=== PATIENT | female | born 1970 | race Caucasian/White ===

== ENCOUNTER 2018-03-16 07:16 | Inpatient (IN) ==
[2018-03-16] MEDS ORDERED: IOPAMIDOL 100 ML BOTTLE IV ONE (07:17)
--- NOTE | 2018-03-16 08:05 | Emergency Department Note ---
Abdominal Pain HPI - General Chief Complaint: Abdominal Pain Stated Complaint: "Pancreatitis Flare-Up" Time Seen by Provider: 03/16/18 07:53 Source: patient Mode of arrival: ambulatory Limitations: no limitations - History of Present Illness HPI Narrative: Patient states she has a history of pancreatitis, was hospitalized this year in September twice. Panotitis most likely alcohol-related. She was trying to stay off of alcohol but then had a few drinks on . Since then her pancreatitis pain has flared up. She reports mid epigastric abdominal pain radiating to her entire abdomen and also to her back since . Gradually worsening. Constantly pain. She does have a G-tube in place and she states she used some ensure just night before and this worsened her pain. She's not had anything to eat in the last 24 hours but has been trying to stay hydrated with some water. She feels she is thirsty. Does report urination this morning. Drove herself to the emergency department. No fevers or chills, she does have a cough, smoker, no history of a trauma no fevers, denies urinary symptoms, no flank pain. MD Complaint: abdominal pain - Related Data Home Medications Medication Instructions Recorded Confirmed Prozac 03/16/18 Allergies Allergy/AdvReac Type Severity Reaction Status Date / Time morphine Allergy Mild Itching Verified 03/16/18 07:18 Review of Systems All systems ED: reviewed and negative except as stated. ENT ED: Denies: throat pain, hearing loss Cardiovascular: Denies: chest pain, syncope Respiratory: Reports: cough, phlegm. Denies: shortness of breath Gastrointestinal: Reports: abdominal pain Genitourinary: Denies: dysuria Musculoskeletal: Reports: back pain Neurological: Denies: headache Abdominal Pain PMH - Past Medical History Medical history: Reports: asthma, COPD, other Reports: pancreatitis, peptic ulcer disease Surgical history ED: Reports: other (G-tube placement) Psychiatric history: Reports: anxiety - Social History Smoking status: Current every day smoker Alcohol use: Reports: Rarely, Recent Drug use: Reports: none Physical Exam Limitations: no limitations General appearance: alert, in distress Head: atraumatic Eye: Present: normal appearance, PERRL, EOMI, visual kumar intact. Absent: periorbital tenderness ENT: normal exam, normal oropharynx, TM's normal bilaterally, other (edentulous upper and lower) Neck: Present: normal inspection, full ROM, trachea midline Chest: Present: normal inspection, symmetric chest wall rise Respiratory: Present: other (the Minipress sounds bilaterally.). Absent: wheezes Cardiovascular: Present: regular rate, normal rhythm Abdominal: Present: tenderness, guarding, rebound, hypoactive bowel sounds Abdominal tenderness: Present: epigastrium, moderate Rectal: Present: deferred Extremities: Present: normal inspection, full ROM Back: Present: normal inspection. Absent: CVA tenderness (R), CVA tenderness (L ) Neurological: Present: alert, oriented X3, CN II-XII intact, normal gait, other (generally weak and frail appearing). Absent: motor sensory deficit Psychiatric: Present: normal affect Skin: Present: warm, dry, intact, rash, other (seborrhea of the face) Course Vital Signs Temperature 97.5 F 03/16/18 07:18 Pulse Rate 94 H 03/16/18 07:18 Respiratory Rate 28 H 03/16/18 07:18 Blood Pressure 123/71 03/16/18 07:18 Pulse Oximetry (%) 97 03/16/18 07:18 Temperature 97.5 F 03/16/18 07:18 Pulse Rate 80 03/16/18 08:33 Respiratory Rate 28 H 03/16/18 07:18 Blood Pressure 142/94 03/16/18 08:33 Pulse Oximetry (%) 100 03/16/18 08:33 Abdominal Pain - MDM Narrative Medical decision making narrative: Laboratory studies still pending at this time. CBC so far looks normal her lipase and chemistry panel still pending. Signed out to Dr. musa for further care. - Lab Data Result diagrams: 03/16/18 08:20 03/16/18 08:20 Lab Results 03/16/18 03/16/18 Range/Units 08:20 08:20 WBC 7.4 (4.5-11.0) K/mcL RBC 3.84 L (4.00-5.20) M/mcL Hgb 12.4 (12.0-15.0) g/dL Hct 37.2 (36.0-48.0) % MCV 96.9 (80.0-100.0) fL MCH 32.2 (26.0-34.0) pg MCHC 33.2 (31.0-36.0) g/dL RDW 16.2 H (11.5-14.5) % Plt Count 790 H (140-440) K/mcL MPV 8.2 (7.4-10.4) fL Gran % 72.2 (38.0-78.0) % Lymph % (Auto) 18.4 (15.5-49.0) % [facility] % (Auto) 5.8 (1.0-12.0) % Eos % (Auto) 3.1 (0.0-7.0) % Baso % (Auto) 0.5 (0.0-2.0) % Gran # 5.4 (1.8-8.0) K/mcL Lymph # (Auto) 1.4 L (1.5-4.8) K/mcL [facility] # (Auto) 0.4 (0.1-0.9) K/mcL Eos # (Auto) 0.2 (0.0-0.7) K/mcL Baso # (Auto) 0 (0.0-0.3) K/mcL PT 13.2 (11.9-14.5) sec INR 1.0 (0.9-1.1) Disposition Pt seen by MECHANICAL CAD DRAFTER/PA only: No Clinical Impression: Pancreatitis Disposition: Still a Patient Referrals: Jenn Smith ARNP [Primary Care Provider] -
[2018-03-16] MEDS ORDERED: PANTOPRAZOLE 40 MG VIAL IV ONE (08:10)
[2018-03-16] MEDS ORDERED: ONDANSETRON 4 MG/2 ML VIAL IV ONE ×2 (08:10→15:29)
[2018-03-16] MEDS ORDERED: LACTATED RINGERS 1,000 ML IV ONE ×2 (08:10)
[2018-03-16] MEDS ORDERED: HYDROmorphone 2 MG/ML VIAL IV ONE (08:20)
[2018-03-16] MEDS ORDERED: HYDROmorphone 2 MG/ML VIAL IV SCH (08:30)
[2018-03-16 08:49] LABS: Basophils # (Auto) 0 K/mcL (0.0-0.3); Basophils % (Auto) 0.5 % (0.0-2.0); Eosinophils # (Auto) 0.2 K/mcL (0.0-0.7); Eosinophils % (Auto) 3.1 % (0.0-7.0); Granulocytes % (Auto) 72.2 % (38.0-78.0); Lymphocytes # (Auto) 1.4 K/mcL (1.5-4.8); Lymphocytes % (Auto) 18.4 % (15.5-49.0); Mean Cell Volume 96.9 fL (80.0-100.0); Mean Corpuscular HGB Conc 33.2 g/dL (31.0-36.0); Mean Corpuscular Hemoglobin 32.2 pg (26.0-34.0); Monocytes # (Auto) 0.4 K/mcL (0.1-0.9); Monocytes % (Auto) 5.8 % (1.0-12.0); Platelet Count 790 K/mcL (140-440); RBC 3.84 M/mcL (4.00-5.20); Red Cell Distribution Width 16.2 % (11.5-14.5)
[2018-03-16 09:02] LABS: Lipase 117 U/L (7-60)
[2018-03-16 09:09] LABS: ALT/SGPT 7 U/l (0-40); Albumin 2.7 gm/dL (3.2-5.2); Albumin/Globulin Ratio 0.6 (1.0-2.3); Alkaline Phosphatase 155 U/L (39-117); Blood Urea Nitrogen 6 mg/dl (6-20); Lipase 117 U/L (7-60)
[2018-03-16] MEDS: HYDROmorphone 2 MG/ML VIAL IV PRN ×4 (09:30→21:03)
[2018-03-16 10:13] LABS: Appearance,Urine HAZY; Bacteria,Urine 0 /hpf (0); Bilirubin,Urine NEG (NEG); Color,Urine YELLOW; Glucose,Urine (UA) NEGATIVE (NEG); Leukocyte Esterase,Urine NEG /uL (NEG); Mucus,Urine MANY /hpf (0); Protein,Urine 30 mg/dL (NEG); Specific Gravity,Urine 1.024 (1.000-1.035); Urine Amorphous Crystals FEW /hpf (0); Urine Blood NEG mg/dL (<0.03); Urine Hyaline Cast 1 /lpf (0-2); Urine RBC 4 /hpf (0-1); Urine Squamous Epithelial Cell 5 /hpf (0-4); Urine WBC 3 /hpf (0-4)
--- NOTE | 2018-03-16 12:31 | XRay Report ---
CLINICAL INFORMATION: cough/copd COMPARISON: None. FINDINGS: The heart is grossly normal. Mediastinum and pulmonary vessels are unremarkable. Large left pleural effusion results in subtotal compressive atelectasis of the left lower lobe and lingula. The remaining lungs are clear. Moderate dextroscoliosis noted. IMPRESSION: Large left pleural effusion resulting in subtotal compressive atelectasis of the left lower lobe and lingula. Interpreted and Authenticated by: Ernesto Gomes 03/16/18
--- NOTE | 2018-03-16 13:25 | Cat Scan Report ---
CLINICAL INFORMATION: Left pleural effusion and history of pancreatitis COMPARISON: None. TECHNIQUE: Enteric contrast was utilized. 80 cc of Isovue-300 were injected intravenously, and 50 seconds later 2.5 mm helical slices were obtained from the lung apices through the subtrochanteric regions of the femurs. Following reconstruction, 2.5 mm sagittal, coronal and axial reformatted images were processed and reviewed at multiple windows and levels. 7 mm MIP reconstructions were obtained through the lungs to optimize nodule detection.The exam was performed using radiation dose optimization techniques including, but not limited to, automated exposure control, adjustment of the mA and/or kV according to patient size and use of iterative reconstruction technique. FINDINGS: Pulmonary parenchymal windows show large simple left pleural effusion resulting in subtotal compressive atelectasis of the left lower lobe and lingula. There is a small region of groundglass infiltrate in the anterior segment of the right upper lobe with minimal scattered scarring and/or atelectasis in the periphery of both lungs. Mediastinal windows show the thoracic aorta and pulmonary arteries to be well opacified and normal in contour and caliber. The heart is normal in size and configuration with very minimal atherosclerotic plaque in the coronary arteries. Esophagus is normal. There is no adenopathy in the mediastinal hilar or axillary regions. The thyroid is unremarkable. Images through the abdomen show mild hepatomegaly with inhomogeneous attenuation of the liver suggesting diffuse hepatocellular disease such as inflammation. There is a 11 mm hyperenhancing lesion in the medial segment of the left hepatic lobe adjacent to the ligament ligamentum fissure (image 1:30). The remaining liver is normal. The gallbladder is surgically absent. Intrahepatic and common bile ducts are normal caliber - CBD is 6 mm. There are scattered calcifications throughout the pancreatic parenchyma compatible chronic pancreatitis. The pancreatic parenchyma also shows mild inhomogeneous attenuation suggesting acute upon chronic pancreatitis. The Santorini pancreatic duct is dilated measuring in the mid body up to 4 mm. There are multiple pseudocysts in the distal pancreatic body, tail and perisplenic regions. The largest is 7 cm in maximal dimension within the pancreatic tail. This also 4 cm pseudocyst in the subdiaphragmatic region and a 7 x 2.6 cm sausage-shaped pseudocyst the anterior perisplenic region. A 3.2 cm pseudocyst is noted in the subcapsular region of the spleen. Both kidneys, adrenal glands, spleen and aorta, including aortic branches, are normal in size, configuration and attenuation without focal lesion. Images through the pelvis retroverted uterus which is normal in size: 7.5 x 2.5 cm. A 3 cm fat-containing dermoid cyst is seen in the left ovarian region. It is predominantly fatty density with a 2 cm solid component centrally. Right ovary is not identified. Small amount of ascites is noted. PEG tube is seen in satisfactory position entering the anterior wall of the gastric body with the tube extending intraluminally into the distal stomach and proximal duodenum - tip is in the transverse duodenum. The stomach, small bowel and large bowel are normal otherwise, normal. Bone windows show malunified old distal right clavicle fracture and posterior fusion of the right sixth and seventh rib at the costotransverse junction] Mild dextroscoliosis is noted. IMPRESSION: 1. Large simple left pleural effusion resulting in subtotal atelectasis of the left lower lobe and lingula. 2. Acute upon chronic pancreatitis. There are multiple calcifications scattered throughout the pancreatic parenchyma compatible with chronic pancreatitis. In addition, there is mild inflammation in pancreatic parenchyma and multiple pseudocysts ranging up to 7 cm in the pancreatic tail. Santorini pancreatic duct is moderately dilated in the distal body and tail and demonstrate communication the largest pseudocyst. 3. 3 cm fat-containing dermoid cyst in the left ovarian region. 2 cm solid component. 4. Mildly enlarged inhomogeneous liver suggesting inflammation or other diffuse cellular process. There is an 11 mm hyperattenuating lesion in the medial segment of the left hepatic lobe. This could potentially represent a transient attenuation difference,, however the possibility of hepatoma should be excluded. Suggest abdominal MRI and MRCP, to evaluate for hepatoma in the left hepatic lobe, exclude the possibility of thrombus in the splenic vein and ensure overall the pseudocysts have a benign appearance. Interpreted and Authenticated by: Ernesto Gomes 03/16/18
[2018-03-16] MEDS ORDERED: HYDROmorphone 2 MG/ML VIAL IV PRN (14:52)
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
[2018-03-16] MEDS ORDERED: PROMETHAZINE 25 MG/ML VIAL IM PRN (17:29)
[2018-03-16] MEDS ORDERED: ACETAMINOPHEN 325 MG TABLET PO PRN (17:29)
[2018-03-16] MEDS ORDERED: PROCHLORPERAZINE 25 MG SUPP.RECT PR PRN (17:29)
[2018-03-16] MEDS ORDERED: ONDANSETRON 4 MG/2 ML VIAL IV PRN (17:29)
[2018-03-16] MEDS ORDERED: IPRATROPIUM/ALBUTEROL 3 ML AMPUL.NEB NEB PRN (17:29)
[2018-03-16] MEDS: 0.9 % SODIUM CHLORIDE 1,000 ML IV SCH ×2 (18:00→23:49)
[2018-03-16] MEDS ORDERED: HYDROmorphone 2 MG/ML VIAL ONE (18:10)
[2018-03-16] MEDS: NICOTINE 21 MG PATCH TOPICAL SCH (19:05)
[2018-03-16] MEDS: HEPARIN 5,000 UNIT/ML VIAL SQ SCH (21:03)
[2018-03-16] MEDS: DOCUSATE SODIUM 100 MG CAPSULE PO SCH (21:03)
[2018-03-16] MEDS: 0.9 % SODIUM CHLORIDE 10 ML SYRINGE IV SCH (21:04)
[2018-03-16] MEDS: FAMOTIDINE/PF 20 MG/2 ML VIAL IV SCH (21:04)
[2018-03-17] MEDS: HYDROmorphone 2 MG/ML VIAL IV PRN ×8 (01:13→22:26)
[2018-03-17] MEDS: 0.9 % SODIUM CHLORIDE 10 ML SYRINGE IV SCH ×3 (04:55→22:27)
[2018-03-17 05:38] LABS: Basophils # (Auto) 0 K/mcL (0.0-0.3); Basophils % (Auto) 0.9 % (0.0-2.0); Eosinophils # (Auto) 0.3 K/mcL (0.0-0.7); Eosinophils % (Auto) 5.3 % (0.0-7.0); Lymphocytes # (Auto) 2.1 K/mcL (1.5-4.8); Mean Cell Volume 97.5 fL (80.0-100.0); Mean Corpuscular HGB Conc 32.6 g/dL (31.0-36.0); Mean Corpuscular Hemoglobin 31.8 pg (26.0-34.0); Monocytes # (Auto) 0.4 K/mcL (0.1-0.9); Monocytes % (Auto) 7.8 % (1.0-12.0); Platelet Count 630 K/mcL (140-440); Red Cell Distribution Width 16.5 % (11.5-14.5)
[2018-03-17 05:58] LABS: ALT/SGPT 7 U/l (0-40); Albumin 2.2 gm/dL (3.2-5.2); Albumin/Globulin Ratio 0.7 (1.0-2.3); Alkaline Phosphatase 117 U/L (39-117); Bilirubin,Direct < 0.2 mg/dL (0.0-0.3); Blood Urea Nitrogen 4 mg/dl (6-20); Gamma Glutamyl Transpeptidase 64 U/L (5-36); Uric Acid 2.7 mg/dL (2.5-8.0)
[2018-03-17] MEDS: 0.9 % SODIUM CHLORIDE 1,000 ML IV SCH ×4 (06:51→23:08)
--- NOTE | 2018-03-17 06:56 | Internal Med Progress Note ---
Medical - PN: Subj Patient information: Note initiated : 03/17/18 at 6:53 am Service Date, if different from initiated Date: [] Patient: Jaleesa Harrison a 47 y/o F admitted on 03/16/18 for "Pancreatitis Flare- Up". Chief Complaint: [] Interval history: Ms. Harrison is a 47 year old F with history of alcohol abuse and chronic pancreatitis who presents with increased abdominal pain with her typical pancreatic pain since consuming alcohol recently. Patient has been abstinent from alcohol since August she states however in February she had some alcohol at friend's house a week or so before and then she had some more on . She says that her abdominal pain has been worsening, she does have baseline abdominal pancreatic pain, since taking the alcohol earlier in the month. She was seen at [place] several times the past several weeks. But returns for continued pain. She is originally from [place] she is been over here since last fall but has been back and forth several times. She has had multiple episodes of pancreatitis in the past. Sounds like in 2013 she had multiorgan dysfunction from a severe pancreatitis. She was seen [facility] in May 2017 for pancreatitis and was seen at a hospital in [place] in October for pancreatitis at which time she had a J-tube placed and was found to have a pseudocyst at that time. The pseudocyst were not present on imaging in May [facility]. Current imaging shows a large pleural effusion on the left with subtotal atelectasis of the left lower lobe acute on chronic pancreatitis changes she has multiple pseudocysts including several 7 cm pseudocysts, a 4 cm pseudocyst, and a 3 cm pseudocyst. An enlarged liver noted and 11 mm lesion in the left hepatic lobe which per the radiological read could represent a transient attenuation difference however consideration for hepatoma considered. Because of the patient's complicated pancreatic history, her J-tube, multiple large pseudocysts, large pleural effusion, liver lesion, and no car rental manager available for consult at this facility I initially felt uncomfortable admitting this patient to [facility] given our limited resources and initially refused admission to this facility. However, ER physician stated the car rental manager and hospitalist in [place] did not feel the patient needed to be transferred and could be treated down here. Prior to that the case was discussed with [facility] center who recommended transferring to [place]. Patient does admit to recent alcohol use which I aggressively counseled her against. Patient is also still smoking. She has some nausea but no vomiting. She has chronic diarrhea. She feels her breathing is not compromised. No chest pain. Stomach pain is severe sharp shooting radiating which she states around to the back. 03/17 Poor sleep last night because of what she says noise interruptions and pain. Abdominal pain better controlled with pain medications. She states she is starving and would like a diet. Has some nausea no vomiting. Review of Systems: denies headache/fever/chills/chest pain/cough/dyspnea/diarrhea. Otherwise see above. - Constitutional Vitals: Vital Signs Temp Pulse Resp BP Pulse Ox 98.3 F 58 L 18 140/84 94 03/17/18 02:50 03/17/18 02:50 03/17/18 02:50 03/17/18 02:50 03/17/18 02:50 Period Temp Pulse Resp BP Sys/Castaneda Pulse Ox Last 24 Hr 97.5 F-98.4 F 57-94 12-28 107-150/61-100 92-100 Intake and Output 03/16/18 03/17/18 03/17/18 21:59 05:59 13:59 Intake Total 1053 / 1053 1000 / 1000 Output Total 450 / 450 350 / 350 Balance 603 / 603 650 / 650 Weight 49.396 kg Intake & Output: Intake & Output 03/16/18 03/17/18 03/17/18 21:59 05:59 13:59 Intake Total 1053 / 1053 1000 / 1000 Output Total 450 / 450 350 / 350 Balance 603 / 603 650 / 650 Weight 49.396 kg Intake: IV 873 / 873 1000 / 1000 Sodium Chloride 0.9% 1,000 ml @ 873 / 873 1000 / 1000 150 mls/hr IV .Q6H40M [facility] Rx#: [id number] Oral 180 / 180 Output: Void Amount 450 / 450 350 / 350 Other: Urine Appearance Clear Clear Urine Color Dark Yellow Bright Yellow Urine Odor Normal # Voids 1 Exam: General: Alert, Awake, No acute Distress Eyes/N/T: EOMI, Head/Neck: neck supple, CV: RRR, No murmurs, normal s1/s2 Pulm: Clear b/l, no wheezing/rhonchi/rales Abd: soft, tenderness to palpation epigastrium, +BS x4 Ext: no clubbing/cyanosis/edema Neuro: Alert, no focal deficits, moves all extremities Skin: warm/dry Medical - PN: Obj Da - Labs CBC & Chem 7: 03/17/18 04:31 03/17/18 04:31 Labs: Abnormal Lab Results 03/17/18 03/17/18 03/16/18 04:31 04:31 16:01 RBC 3.20 L Hgb 10.2 L Hct 31.2 L RDW 16.5 H Plt Count 630 H Lymph # (Auto) BUN 4 L Creatinine 0.3 L Calcium 8.3 L GGT 64 H Alkaline Phosphatase Lactate Dehydrogenase < 10 L Total Protein 5.5 L Albumin 2.2 L Globulin Albumin/Globulin Ratio 0.7 L Lipase Urine Protein Urine Urobilinogen Urine RBC Ur Squamous Epith Cells Amorphous Crystals Urine Mucus 03/16/18 03/16/18 03/16/18 09:20 08:20 08:20 RBC Hgb Hct RDW Plt Count Lymph # (Auto) BUN Creatinine 0.4 L Calcium GGT Alkaline Phosphatase 155 H Lactate Dehydrogenase Total Protein Albumin 2.7 L Globulin 4.3 H Albumin/Globulin Ratio 0.6 L Lipase 117 H 117 H Urine Protein 30 A Urine Urobilinogen 2.0 A Urine RBC 4 H Ur Squamous Epith Cells 5 H Amorphous Crystals Few A Urine Mucus Many A 03/16/18 08:20 RBC 3.84 L Hgb Hct RDW 16.2 H Plt Count 790 H Lymph # (Auto) 1.4 L BUN Creatinine Calcium GGT Alkaline Phosphatase Lactate Dehydrogenase Total Protein Albumin Globulin Albumin/Globulin Ratio Lipase Urine Protein Urine Urobilinogen Urine RBC Ur Squamous Epith Cells Amorphous Crystals Urine Mucus Meds: Medications Acetaminophen (Tylenol) 650 mg PO Q6HP PRN PRN Reason: PAIN/FEVER > 101 Albuterol/Ipratropium (Duoneb) 3 ml NEB Q4HRT PRN PRN Reason: Bronchospasm Docusate Sodium (Colace) 100 mg PO BID [facility] Last Admin: 03/16/18 21:03 Dose: Not Given Famotidine (Pepcid) 20 mg IV Q12 [facility] Last Admin: 03/16/18 21:04 Dose: 20 mg Heparin Sodium (Porcine) (Heparin) 5,000 unit SQ Q12 [facility] Last Admin: 03/16/18 21:03 Dose: 5,000 unit Hydromorphone HCl (Dilaudid) 0 mg IV Q2HP PRN PRN Reason: PAIN LEVEL > 6 Last Admin: 03/17/18 04:54 Dose: 1 mg Sodium Chloride (Sodium Chloride 0.9%) 1,000 mls @ 150 mls/hr IV .Q6H40M [facility] Last Admin: 03/17/18 06:51 Dose: 150 mls/hr Nicotine (Nicoderm) 21 mg TOPICAL DAILY@1000 IVANIA Last Admin: 03/16/18 19:05 Dose: 21 mg Ondansetron HCl (Zofran) 4 mg IV Q4HP PRN PRN Reason: Nausea And Vomiting Prochlorperazine Maleate (Compazine) 12.5 mg MN Q12HP PRN PRN Reason: Nausea And Vomiting Promethazine HCl (Phenergan) 12.5 mg IM Q6HP PRN PRN Reason: Nausea And Vomiting Sodium Chloride (Saline Flush) 10 ml IV Q8 [facility] Last Admin: 03/17/18 04:55 Dose: Not Given Medical - PN: A/P - Time Spent With Patient Total time spent is greater than 50% in coordination of care (as documented) at patient's floor/unit and/or counseling patient: - Narrative A/P Narrative: A: *Acute on chronic pancreatitis: Secondary to alcohol use *Multiple large pseudocysts: Secondary to chronic pancreatitis -Were not present in May, but were present on her admission in October surgery. Unknown size of the pseudocysts in October *Large left pleural effusion: Suspect pancreatic etiology - *Alcohol abuse: *Tobacco abuse: *Depression: *Cirrhosis, alcohol induced: * P: -IVF -Pain regimen -advance diet -MRCP to evaluate pseudocyst liver lesion and recurrent pancreatitis -Thoracentesis with analysis including amylase - counseled against alcohol and tobacco use - -ppx: Heparin
--- NOTE | 2018-03-17 07:03 | Emergency Department Note ---
Abdominal Pain HPI - General Chief Complaint: Abdominal Pain Stated Complaint: "Pancreatitis Flare-Up" Time Seen by Provider: 03/16/18 07:53 Source: patient Mode of arrival: ambulatory Limitations: no limitations - History of Present Illness MD Complaint: abdominal pain - Related Data Home Medications Medication Instructions Recorded Confirmed FLUoxetine HCL [PROzac] 60 mg PO HS 03/16/18 03/16/18 Allergies Allergy/AdvReac Type Severity Reaction Status Date / Time morphine Allergy Mild Itching Verified 03/16/18 07:18 Review of Systems ENT ED: Denies: throat pain, hearing loss Cardiovascular: Denies: chest pain, syncope Respiratory: Reports: cough, phlegm. Denies: shortness of breath Gastrointestinal: Reports: abdominal pain Genitourinary: Denies: dysuria Musculoskeletal: Reports: back pain Neurological: Denies: headache Abdominal Pain PMH - Past Medical History Medical history: Reports: asthma, COPD, other Reports: pancreatitis, peptic ulcer disease Psychiatric history: Reports: anxiety - Social History Smoking status: Light tobacco smoker Alcohol use: Reports: Rarely, Recent Drug use: Reports: none Physical Exam Limitations: no limitations General appearance: alert, in distress Course Vital Signs Temperature 97.5 F 03/16/18 07:18 Pulse Rate 94 H 03/16/18 07:18 Respiratory Rate 28 H 03/16/18 07:18 Blood Pressure 123/71 03/16/18 07:18 Pulse Oximetry (%) 97 03/16/18 07:18 Temperature 98.3 F 03/17/18 02:50 Pulse Rate 58 L 03/17/18 02:50 Respiratory Rate 18 03/17/18 02:50 Blood Pressure 140/84 03/17/18 02:50 Pulse Oximetry (%) 94 03/17/18 02:50 Abdominal Pain - MDM Narrative Medical decision making narrative: This patient's lipase was elevated and the CT scan showed some pseudocyst. This patient states she had a G-tube placed in October and was worried because of pseudocyst. I did discuss this case with the GI doctor at [facility] Dr. Loaiza who thought the patient could probably be treated here. Dr. Vaz then admitted the patient to the hospital. - Lab Data Lab results reviewed: Yes I reviewed the patient's lab results. Result diagrams: 03/17/18 04:31 03/17/18 04:31 Lab Results 03/16/18 03/16/18 03/16/18 Range/Units 08:20 08:20 08:20 WBC 7.4 (4.5-11.0) K/mcL RBC 3.84 L (4.00-5.20) M/mcL Hgb 12.4 (12.0-15.0) g/dL Hct 37.2 (36.0-48.0) % MCV 96.9 (80.0-100.0) fL MCH 32.2 (26.0-34.0) pg MCHC 33.2 (31.0-36.0) g/dL RDW 16.2 H (11.5-14.5) % Plt Count 790 H (140-440) K/mcL MPV 8.2 (7.4-10.4) fL Gran % 72.2 (38.0-78.0) % Lymph % (Auto) 18.4 (15.5-49.0) % [place] % (Auto) 5.8 (1.0-12.0) % Eos % (Auto) 3.1 (0.0-7.0) % Baso % (Auto) 0.5 (0.0-2.0) % Gran # 5.4 (1.8-8.0) K/mcL Lymph # (Auto) 1.4 L (1.5-4.8) K/mcL [place] # (Auto) 0.4 (0.1-0.9) K/mcL Eos # (Auto) 0.2 (0.0-0.7) K/mcL Baso # (Auto) 0 (0.0-0.3) K/mcL PT 13.2 (11.9-14.5) sec INR 1.0 (0.9-1.1) Sodium 136 (133-145) mmol/L Potassium 3.7 (3.3-5.1) mmol/L Chloride 97 (96-108) mmol/L Carbon Dioxide 25 (22-30) mmol/L Anion Gap 14.0 (8-16) BUN 6 (6-20) mg/dl Creatinine 0.4 L (0.6-1.1) mg/dl GFR Calculation 124 Glucose 100 (70-105) mg/dL Calcium 9.1 (8.6-10.4) mg/dl Phosphorus (2.7-4.5) mg/dL Magnesium (1.6-2.5) mg/dL Total Bilirubin 0.2 (0.0-1.0) mg/dL AST 14 (0-37) U/l ALT 7 (0-40) U/l Alkaline Phosphatase 155 H (39-117) U/L Lactate Dehydrogenase (94-250) U/L Total Protein 7.0 (5.9-8.4) gm/dL Albumin 2.7 L (3.2-5.2) gm/dL Globulin 4.3 H (2.2-3.7) gm/dL Albumin/Globulin Ratio 0.6 L (1.0-2.3) Lipase 117 H (7-60) U/L Urine Color Urine Appearance Urine pH (5.0-9.0) Ur Specific [place] (1.000-1.035) Urine Protein (NEG) mg/dL Urine Glucose (UA) (NEG) mg/dL Urine Ketones (NEG) mg/dL Urine Occult Blood (<0.03) mg/dL Urine Nitrate (NEG) Urine Bilirubin (NEG) mg/dL Urine Urobilinogen (NEG) mg/dL Ur Leukocyte Esterase (NEG) /uL Urine RBC (0-1) /hpf Urine WBC (0-4) /hpf Ur Squamous Epith Cells (0-4) /hpf Amorphous Crystals (0) /hpf Urine Bacteria (0) /hpf Hyaline Casts (0-2) /lpf Urine Mucus (0) /hpf Ur Culture Indicated? 03/16/18 03/16/18 03/16/18 Range/Units 08:20 09:20 16:01 WBC (4.5-11.0) K/mcL RBC (4.00-5.20) M/mcL Hgb (12.0-15.0) g/dL Hct (36.0-48.0) % MCV (80.0-100.0) fL MCH (26.0-34.0) pg MCHC (31.0-36.0) g/dL RDW (11.5-14.5) % Plt Count (140-440) K/mcL MPV (7.4-10.4) fL Gran % (38.0-78.0) % Lymph % (Auto) (15.5-49.0) % [place] % (Auto) (1.0-12.0) % Eos % (Auto) (0.0-7.0) % Baso % (Auto) (0.0-2.0) % Gran # (1.8-8.0) K/mcL Lymph # (Auto) (1.5-4.8) K/mcL [place] # (Auto) (0.1-0.9) K/mcL Eos # (Auto) (0.0-0.7) K/mcL Baso # (Auto) (0.0-0.3) K/mcL PT (11.9-14.5) sec INR (0.9-1.1) Sodium (133-145) mmol/L Potassium (3.3-5.1) mmol/L Chloride (96-108) mmol/L Carbon Dioxide (22-30) mmol/L Anion Gap (8-16) BUN (6-20) mg/dl Creatinine (0.6-1.1) mg/dl GFR Calculation Glucose (70-105) mg/dL Calcium (8.6-10.4) mg/dl Phosphorus (2.7-4.5) mg/dL Magnesium (1.6-2.5) mg/dL Total Bilirubin (0.0-1.0) mg/dL AST (0-37) U/l ALT (0-40) U/l Alkaline Phosphatase (39-117) U/L Lactate Dehydrogenase < 10 L (94-250) U/L Total Protein (5.9-8.4) gm/dL Albumin (3.2-5.2) gm/dL Globulin (2.2-3.7) gm/dL Albumin/Globulin Ratio (1.0-2.3) Lipase 117 H (7-60) U/L Urine Color Yellow Urine Appearance Hazy Urine pH 6.0 (5.0-9.0) Ur Specific [place] 1.024 (1.000-1.035) Urine Protein 30 A (NEG) mg/dL Urine Glucose (UA) Negative (NEG) mg/dL Urine Ketones Neg (NEG) mg/dL Urine Occult Blood Neg (<0.03) mg/dL Urine Nitrate Neg (NEG) Urine Bilirubin Neg (NEG) mg/dL Urine Urobilinogen 2.0 A (NEG) mg/dL Ur Leukocyte Esterase Neg (NEG) /uL Urine RBC 4 H (0-1) /hpf Urine WBC 3 (0-4) /hpf Ur Squamous Epith Cells 5 H (0-4) /hpf Amorphous Crystals Few A (0) /hpf Urine Bacteria 0 (0) /hpf Hyaline Casts 1 (0-2) /lpf Urine Mucus Many A (0) /hpf Ur Culture Indicated? No 03/16/18 Range/Units 16:31 WBC (4.5-11.0) K/mcL RBC (4.00-5.20) M/mcL Hgb (12.0-15.0) g/dL Hct (36.0-48.0) % MCV (80.0-100.0) fL MCH (26.0-34.0) pg MCHC (31.0-36.0) g/dL RDW (11.5-14.5) % Plt Count (140-440) K/mcL MPV (7.4-10.4) fL Gran % (38.0-78.0) % Lymph % (Auto) (15.5-49.0) % [place] % (Auto) (1.0-12.0) % Eos % (Auto) (0.0-7.0) % Baso % (Auto) (0.0-2.0) % Gran # (1.8-8.0) K/mcL Lymph # (Auto) (1.5-4.8) K/mcL [place] # (Auto) (0.1-0.9) K/mcL Eos # (Auto) (0.0-0.7) K/mcL Baso # (Auto) (0.0-0.3) K/mcL PT (11.9-14.5) sec INR (0.9-1.1) Sodium (133-145) mmol/L Potassium (3.3-5.1) mmol/L Chloride (96-108) mmol/L Carbon Dioxide (22-30) mmol/L Anion Gap (8-16) BUN (6-20) mg/dl Creatinine (0.6-1.1) mg/dl GFR Calculation Glucose (70-105) mg/dL Calcium (8.6-10.4) mg/dl Phosphorus 3.2 (2.7-4.5) mg/dL Magnesium 1.7 (1.6-2.5) mg/dL Total Bilirubin (0.0-1.0) mg/dL AST (0-37) U/l ALT (0-40) U/l Alkaline Phosphatase (39-117) U/L Lactate Dehydrogenase (94-250) U/L Total Protein (5.9-8.4) gm/dL Albumin (3.2-5.2) gm/dL Globulin (2.2-3.7) gm/dL Albumin/Globulin Ratio (1.0-2.3) Lipase (7-60) U/L Urine Color Urine Appearance Urine pH (5.0-9.0) Ur Specific [place] (1.000-1.035) Urine Protein (NEG) mg/dL Urine Glucose (UA) (NEG) mg/dL Urine Ketones (NEG) mg/dL Urine Occult Blood (<0.03) mg/dL Urine Nitrate (NEG) Urine Bilirubin (NEG) mg/dL Urine Urobilinogen (NEG) mg/dL Ur Leukocyte Esterase (NEG) /uL Urine RBC (0-1) /hpf Urine WBC (0-4) /hpf Ur Squamous Epith Cells (0-4) /hpf Amorphous Crystals (0) /hpf Urine Bacteria (0) /hpf Hyaline Casts (0-2) /lpf Urine Mucus (0) /hpf Ur Culture Indicated? - Radiology Data Radiology results reviewed: Yes I reviewed the patient's radiology results. Disposition Pt seen by OXYGEN EQUIPMENT TECHNICIAN/PA only: No Clinical Impression: Pancreatitis Disposition: Xfer As Inpt ([facility]) Condition: Good
[2018-03-17] MEDS ORDERED: GADOBENATE DIMEGLUMINE 15 ML/VIAL IV ONE (08:23)
[2018-03-17] MEDS: FAMOTIDINE/PF 20 MG/2 ML VIAL IV SCH ×2 (08:25→22:25)
[2018-03-17] MEDS: HEPARIN 5,000 UNIT/ML VIAL SQ SCH ×2 (08:25→22:25)
[2018-03-17] MEDS: DOCUSATE SODIUM 100 MG CAPSULE PO SCH ×2 (08:30→22:25)
[2018-03-17] MEDS: NICOTINE 21 MG PATCH TOPICAL SCH (12:57)
[2018-03-17] MEDS ORDERED: LIDOCAINE 1% 20 ML VIAL SQ ONE (15:49)
[2018-03-17 16:04] LABS: Prealbumin 12.7 mg/dl (20-40)
[2018-03-17 16:11] LABS: ALT/SGPT 9 U/l (0-40); Albumin 2.6 gm/dL (3.2-5.2); Albumin/Globulin Ratio 0.7 (1.0-2.3); Alkaline Phosphatase 135 U/L (39-117); Bilirubin,Direct < 0.2 mg/dL (0.0-0.3); Blood Urea Nitrogen 3 mg/dl (6-20); Gamma Glutamyl Transpeptidase 76 U/L (5-36); Uric Acid 2.7 mg/dL (2.5-8.0)
--- NOTE | 2018-03-17 16:14 | Ultrasound Report ---
Ultrasound-guided left thoracentesis CLINICAL INFORMATION: Moderate left pleural effusion TECHNIQUE: Procedure and risks including possibility of bleeding, infection, and pneumothorax were explained to the patient. They understood and wished to proceed. With the patient in upright position, the fluid was first sonographically localized over the posterior left 10th intercostal space at posterior axillary line. The skin overlying this region was marked, prepped and locally anesthetized with 1% lidocaine using a 25-gauge needle to the level the parietal pleura. An 18-gauge General Compressioneh needle was then advanced under sonographic guidance into the pleural fluid and approximately 1.3 L of simple appearing transudative fluid was aspirated. Post procedure scanning shows only minimal residual fluid. Patient tolerated procedure well without apparent complication. Follow-up chest x-ray to be obtained IMPRESSION: Successful thoracentesis yielding 1.3 L of transudative appearing simple pleural fluid. No apparent complication Interpreted and Authenticated by: Ernesto Gomes 03/17/18
--- NOTE | 2018-03-17 16:20 | XRay Report ---
CLINICAL INFORMATION: Post thoracentesis COMPARISON: None. FINDINGS: Following left thoracentesis, there is only small residual left pleural effusion. No pneumothorax. The lingula and left lower lobe have reexpanded. There is only minimal residual atelectasis. The remaining lungs are clear. Heart size, mediastinum and pulmonary vessels are normal. Malunified old right clavicle fracture seen - as before. IMPRESSION: Following left thoracentesis, only minimal residual left pleural effusion. No pneumothorax or other complication. Left lower lobe and lingula reexpanded Interpreted and Authenticated by: Ernesto Gomes 03/17/18
[2018-03-17 18:12] LABS: Appearance,Pleural Fluid CLEAR; Color,Pleural Fluid LIGHT YELLOW; Lymphocytes,Pleural Fluid 29 %; Monocytes,Pleural Fluid 18 %; Neutrophils,Pleural Fluid 43 %; Nucleated Cells,Pleural Fld 59 /cumm; RBC,Pleural Fluid < 50000 /cumm
[2018-03-17 21:16] LABS: Amylase,Pleural Fluid 364 U/L; Glucose,Pleural Fluid 92 mg/dL; LDH,Pleural Fluid 94 U/L
[2018-03-17 21:17] LABS: Total Protein,Body Fluid 3.3 gm/dL
[2018-03-17] MEDS: CHLORHEXIDINE GLUCONATE 1 ML ORAL.SOL SWABMOUTH SCH (22:27)
[2018-03-18] MEDS: HYDROmorphone 2 MG/ML VIAL IV PRN ×6 (01:20→21:26)
[2018-03-18] MEDS: 0.9 % SODIUM CHLORIDE 1,000 ML IV SCH ×3 (01:21→15:41)
[2018-03-18] MEDS: 0.9 % SODIUM CHLORIDE 10 ML SYRINGE IV SCH ×3 (04:44→21:27)
--- NOTE | 2018-03-18 06:59 | Internal Med Progress Note ---
Medical - PN: Subj Patient information: Note initiated : 03/18/18 at 6:46 am Service Date, if different from initiated Date: [] Patient: Jaleesa Harrison a 47 y/o F admitted on 03/16/18 for "Pancreatitis Flare- Up". Chief Complaint: [] Interval history: Ms. Harrison is a 47 year old F with history of alcohol abuse and chronic pancreatitis who presents with increased abdominal pain with her typical pancreatic pain since consuming alcohol recently. Patient has been abstinent from alcohol since August she states however in February she had some alcohol at friend's house a week or so before and then she had some more on . She says that her abdominal pain has been worsening, she does have baseline abdominal pancreatic pain, since taking the alcohol earlier in the month. She was seen at [facility] several times the past several weeks. But returns for continued pain. She is originally from [place] she is been over here since last fall but has been back and forth several times. She has had multiple episodes of pancreatitis in the past. Sounds like in 2013 she had multiorgan dysfunction from a severe pancreatitis. She was seen [facility] in May 2017 for pancreatitis and was seen at a hospital in [place] in October for pancreatitis at which time she had a J-tube placed and was found to have a pseudocyst at that time. The pseudocyst were not present on imaging in May [facility]. Current imaging shows a large pleural effusion on the left with subtotal atelectasis of the left lower lobe acute on chronic pancreatitis changes she has multiple pseudocysts including several 7 cm pseudocysts, a 4 cm pseudocyst, and a 3 cm pseudocyst. An enlarged liver noted and 11 mm lesion in the left hepatic lobe which per the radiological read could represent a transient attenuation difference however consideration for hepatoma considered. Because of the patient's complicated pancreatic history, her J-tube, multiple large pseudocysts, large pleural effusion, liver lesion, and no custom garment designer available for consult at this facility I initially felt uncomfortable admitting this patient to [facility] given our limited resources and initially refused admission to this facility. However, ER physician stated the custom garment designer and hospitalist in [place] did not feel the patient needed to be transferred and could be treated down here. Prior to that the case was discussed with [facility] center who recommended transferring to [place]. Patient does admit to recent alcohol use which I aggressively counseled her against. Patient is also still smoking. She has some nausea but no vomiting. She has chronic diarrhea. She feels her breathing is not compromised. No chest pain. Stomach pain is severe sharp shooting radiating which she states around to the back. 03/17 Poor sleep last night because of what she says noise interruptions and pain. Abdominal pain better controlled with pain medications. She states she is starving and would like a diet. Has some nausea no vomiting. 03/18 abd pain, tolerating diet and tube feeds. feels better lung expansion after thoracentesis. a few loose stool, normal for her. Review of Systems: denies headache/fever/chills/chest pain/cough/dyspnea. Otherwise see above. - Constitutional Vitals: Vital Signs Temp Pulse Resp BP Pulse Ox 97.6 F 66 16 144/85 95 03/18/18 03:48 03/18/18 03:48 03/18/18 03:48 03/18/18 03:48 03/18/18 03:48 Period Temp Pulse Resp BP Sys/Castaneda Pulse Ox Last 24 Hr 97.6 F-98.9 F 66-75 16-18 142-162/85-93 95-98 Intake and Output 03/17/18 03/18/18 03/18/18 21:59 05:59 13:59 Intake Total 1060 / 1060 2563 / 2563 Output Total 1250 / 1250 2400 / 2400 Balance -190 / -190 163 / 163 Weight 49.215 kg Intake & Output: Intake & Output 03/17/18 03/18/18 03/18/18 21:59 05:59 13:59 Intake Total 1060 / 1060 2563 / 2563 Output Total 1250 / 1250 2400 / 2400 Balance -190 / -190 163 / 163 Weight 49.215 kg Intake: IV 1000 / 1000 1872 / 187 Sodium Chloride 0.9% 1,000 ml @ 1000 / 1000 1872 / 1873 150 mls/hr IV .Q6H40M [facility] Rx#: [id number] Oral 390 / 390 Tube Feeding 240 / 240 GI Tube Flush 60 / 60 60 / 60 Output: Void Amount 1250 / 1250 2400 / 2400 Other: Meal Dinner Percent of Meal Consumed 25% Feeding Ability Independent Urine Appearance Clear Clear Urine Color Pale Pale Urine Odor Normal Normal Stool Size Small Stool Color Brown Stool Consistency Loose # Voids 2 Exam: General: Alert, Awake, No acute Distress Eyes/N/T: EOMI, Head/Neck: neck supple, CV: RRR, No murmurs, normal s1/s2 Pulm: Clear b/l, no wheezing/rhonchi/rales Abd: soft, tenderness to palpation epigastrium, +BS x4 Ext: no clubbing/cyanosis/edema Neuro: Alert, no focal deficits, moves all extremities Skin: warm/dry Medical - PN: Obj Da - Labs CBC & Chem 7: 03/17/18 04:31 03/18/18 04:35 Labs: Abnormal Lab Results 03/17/18 03/17/18 03/17/18 14:35 04:31 04:31 RBC Hgb Hct RDW Plt Count Lymph # (Auto) BUN 3 L 4 L Creatinine 0.3 L 0.3 L Calcium 8.5 L 8.3 L GGT 76 H 64 H Alkaline Phosphatase 135 H Lactate Dehydrogenase Total Protein 5.5 L Albumin 2.6 L 2.2 L Globulin 3.8 H Albumin/Globulin Ratio 0.7 L 0.7 L Prealbumin 12.7 L Lipase 68 H Urine Protein Urine Urobilinogen Urine RBC Ur Squamous Epith Cells Amorphous Crystals Urine Mucus 03/17/18 03/16/18 03/16/18 04:31 16:01 09:20 RBC 3.20 L Hgb 10.2 L Hct 31.2 L RDW 16.5 H Plt Count 630 H Lymph # (Auto) BUN Creatinine Calcium GGT Alkaline Phosphatase Lactate Dehydrogenase < 10 L Total Protein Albumin Globulin Albumin/Globulin Ratio Prealbumin Lipase Urine Protein 30 A Urine Urobilinogen 2.0 A Urine RBC 4 H Ur Squamous Epith Cells 5 H Amorphous Crystals Few A Urine Mucus Many A 03/16/18 03/16/18 03/16/18 08:20 08:20 08:20 RBC 3.84 L Hgb Hct RDW 16.2 H Plt Count 790 H Lymph # (Auto) 1.4 L BUN Creatinine 0.4 L Calcium GGT Alkaline Phosphatase 155 H Lactate Dehydrogenase Total Protein Albumin 2.7 L Globulin 4.3 H Albumin/Globulin Ratio 0.6 L Prealbumin Lipase 117 H 117 H Urine Protein Urine Urobilinogen Urine RBC Ur Squamous Epith Cells Amorphous Crystals Urine Mucus Meds: Medications Acetaminophen (Tylenol) 650 mg PO Q6HP PRN PRN Reason: PAIN/FEVER > 101 Albuterol/Ipratropium (Duoneb) 3 ml NEB Q4HRT PRN PRN Reason: Bronchospasm Chlorhexidine Gluconate (Peridex) 15 ml SWAB[place]OUTH BID [facility] Last Admin: 03/17/18 22:27 Dose: 15 ml Docusate Sodium (Colace) 100 mg PO BID [facility] Last Admin: 03/17/18 22:25 Dose: Not Given Famotidine (Pepcid) 20 mg IV Q12 [facility] Last Admin: 03/17/18 22:25 Dose: 20 mg Heparin Sodium (Porcine) (Heparin) 5,000 unit SQ Q12 [facility] Last Admin: 03/17/18 22:25 Dose: 5,000 unit Hydromorphone HCl (Dilaudid) 0 mg IV Q2HP PRN PRN Reason: PAIN LEVEL > 6 Last Admin: 03/18/18 05:56 Dose: 1 mg Sodium Chloride (Sodium Chloride 0.9%) 1,000 mls @ 150 mls/hr IV .Q6H40M [facility] Last Admin: 03/18/18 05:15 Dose: 150 mls/hr Nicotine (Nicoderm) 21 mg TOPICAL DAILY@1000 [facility] Last Admin: 03/17/18 12:57 Dose: 21 mg Ondansetron HCl (Zofran) 4 mg IV Q4HP PRN PRN Reason: Nausea And Vomiting Last Admin: 03/18/18 05:59 Dose: 4 mg Prochlorperazine Maleate (Compazine) 12.5 mg MS Q12HP PRN PRN Reason: Nausea And Vomiting Promethazine HCl (Phenergan) 12.5 mg IM Q6HP PRN PRN Reason: Nausea And Vomiting Sodium Chloride (Saline Flush) 10 ml IV Q8 [facility] Last Admin: 03/18/18 04:44 Dose: Not Given Medical - PN: A/P - Time Spent With Patient Total time spent is greater than 50% in coordination of care (as documented) at patient's floor/unit and/or counseling patient: - Narrative A/P Narrative: A: *Acute on chronic pancreatitis: Secondary to alcohol use *Multiple large pseudocysts: Secondary to chronic pancreatitis -Were not present in May, but were present on her admission in October surgery. Unknown size of the pseudocysts in October - *Large left pleural effusion: Suspect pancreatic etiology -thora for 1300cc (03/17) -protein ratio borderline transudate vs exudate, ldh ratio transudate -amylase level in effusion elevated but not at levels typically indicative of pancreaticopleural fistula *Alcohol abuse: *Tobacco abuse: *Depression: *Cirrhosis, alcohol induced: * P: -IVF decrease and advanc diet -Pain regimen - -MRCP report pending to evaluate pseudocyst liver lesion and recurrent pancreatitis - counseled against alcohol and tobacco use - -ppx: Heparin
[2018-03-18 07:51] LABS: ALT/SGPT 7 U/l (0-40); Albumin 2.2 gm/dL (3.2-5.2); Albumin/Globulin Ratio 0.6 (1.0-2.3); Alkaline Phosphatase 116 U/L (39-117); Bilirubin,Direct < 0.2 mg/dL (0.0-0.3); Blood Urea Nitrogen 2 mg/dl (6-20); Gamma Glutamyl Transpeptidase 67 U/L (5-36); Uric Acid 2.3 mg/dL (2.5-8.0)
[2018-03-18] MEDS: DOCUSATE SODIUM 100 MG CAPSULE PO SCH ×2 (09:28→21:26)
[2018-03-18] MEDS: FAMOTIDINE/PF 20 MG/2 ML VIAL IV SCH ×2 (09:28→21:26)
[2018-03-18] MEDS: HEPARIN 5,000 UNIT/ML VIAL SQ SCH ×2 (09:28→21:26)
[2018-03-18] MEDS: CHLORHEXIDINE GLUCONATE 1 ML ORAL.SOL SWABMOUTH SCH ×2 (09:29→21:27)
[2018-03-18] MEDS: NICOTINE 21 MG PATCH TOPICAL SCH (09:30)
--- NOTE | 2018-03-18 11:28 | Discharge Summary ---
Medical - DS: Prov Patient information: Note initiated : 03/18/18 at 11:21 am Service Date, if different from initiated Date: [] Patient: Jaleesa Harrison 47 y/o F admitted on 03/16/18 for "Pancreatitis Flare- Up". Chief Complaint: [] Date of admission: 03/16/18 17:17 Discharge date: 03/19/18 Primary care physician: Jenn Smith Consults: 03/16/18 12:34 Consult to Physician [CONS] Stat Comment: Consulting Provider: Toby Vaz Reason For Exam: Physician to Consult Medical - DS: Meds - Discharge Medications Prescriptions: Benzonatate [Tessalon Perle] 100 mg PO TIDP PRN #30 cap PRN Reason: Cough HYDROcodone/ACETAMINOPHEN [Viola 5-325 Tablet] 1 each PO Q4HP PRN #30 tab PRN Reason: Pain Lipase/Protease/Amylase [Steven Shoemaker 21,000 Unit Cap] 1 each PO AC #90 capsule. Ondansetron HCl [Zofran ODT] 4 mg SL Q4HP PRN #40 tab PRN Reason: Nausea Active and Home Medications: Home Medications FLUoxetine HCL [PROzac] 60 mg PO HS 03/16/18 [History Confirmed 03/16/18 Last Taken Unknown] Home Medications FLUoxetine HCL [Prozac] 60 mg PO HS 03/16/18 [History Confirmed 03/16/18 Last Taken Unknown] HYDROcodone/ACETAMINOPHEN [Viola 5-325 Tablet] 1 each PO Q4HP PRN #30 tablet [Rx Last Taken Unknown] Lipase/Protease/Amylase [Steven Shoemaker 21,000 Unit Cap] 1 each PO AC #90 capsule. 03/18/18 [Rx Last Taken Unknown] Medical - DS: Hosp Hospital course: Ms. Harrison is a 47 year old F with history of alcohol abuse and chronic pancreatitis who presents with increased abdominal pain with her typical pancreatic pain since consuming alcohol recently. Patient has been abstinent from alcohol since August she states however in February she had some alcohol at friend's house a week or so before and then she had some more on . She says that her abdominal pain has been worsening, she does have baseline abdominal pancreatic pain, since taking the alcohol earlier in the month. She was seen at [place] several times the past several weeks. But returns for continued pain. She is originally from [place] she is been over here since last fall but has been back and forth several times. She has had multiple episodes of pancreatitis in the past. Sounds like in 2013 she had multiorgan dysfunction from a severe pancreatitis. She was seen [facility] in May 2017 for pancreatitis and was seen at a hospital in [place] in October for pancreatitis at which time she had a J-tube placed and was found to have a pseudocyst at that time. The pseudocyst were not present on imaging in May [facility]. Current imaging shows a large pleural effusion on the left with subtotal atelectasis of the left lower lobe acute on chronic pancreatitis changes she has multiple pseudocysts including several 7 cm pseudocysts, a 4 cm pseudocyst, and a 3 cm pseudocyst. An enlarged liver noted and 11 mm lesion in the left hepatic lobe which per the radiological read could represent a transient attenuation difference however consideration for hepatoma considered. Because of the patient's complicated pancreatic history, her J-tube, multiple large pseudocysts, large pleural effusion, liver lesion, and no rand cementer available for consult at this facility I initially felt uncomfortable admitting this patient to [facility] given our limited resources and initially refused admission to this facility. However, ER physician stated the rand cementer and hospitalist in [place] did not feel the patient needed to be transferred and could be treated down here. Prior to that the case was discussed with [facility] transfers center who recommended transferring to [place]. Patient does admit to recent alcohol use which I aggressively counseled her against. Patient is also still smoking. She has some nausea but no vomiting. She has chronic diarrhea. She feels her breathing is not compromised. No chest pain. Stomach pain is severe sharp shooting radiating which she states around to the back. 03/17 Poor sleep last night because of what she says noise interruptions and pain. Abdominal pain better controlled with pain medications. She states she is starving and would like a diet. Has some nausea no vomiting. 03/18 abd pain, tolerating diet and tube feeds. feels better lung expansion after thoracentesis. a few loose stool, normal for her. 03/19 Is comfortable this morning. She has intermittent abdominal pain. Tolerating diet. Able for discharge. She will need to follow-up closely with gastroenterology evaluation for her pseudocyst whether or not they need to be drained. Discharge diagnosis: Acute on chronic pancreatitis alcohol abuse pseudocyst - Time Spent with Patient Total time spent providing and/or coordinating discharge services: Greater than 30 minutes Medical - DS: Exam - Constitutional Vitals: Vital Signs Temp Pulse Resp BP Pulse Ox 03/18/18 08:29 97.2 F 57 L 16 147/83 96 03/18/18 03:48 97.6 F 66 16 144/85 95 03/18/18 00:00 98.2 F 75 16 144/92 96 03/17/18 20:00 97.7 F 69 16 142/89 97 03/17/18 17:50 144/93 96 03/17/18 16:45 97.7 F 16 162/91 97 03/17/18 11:48 98.9 F 18 162/91 98 Intake and Output 03/17/18 03/18/18 03/18/18 21:59 05:59 13:59 Intake Total 1060 / 1060 2563 / 2563 30 / 30 Output Total 1250 / 1250 2400 / 2400 800 / 800 Balance -190 / -190 163 / 163 -770 / -770 Intake: IV 1000 / 1000 1873 / 1873 Sodium Chloride 0.9% 1,000 ml @ 1000 / 1000 1873 / 1873 150 mls/hr IV .[id number] [facility] Rx#: [id number] Oral 390 / 390 Tube Feeding 240 / 240 GI Tube Flush 60 / 60 60 / 60 30 / 30 Output: Gastric Drainage 0 / 0 Left Upper Quadrant Jejunostomy 0 / 0 Void Amount 1250 / 1250 2400 / 2400 800 / 800 Other: Meal Dinner Percent of Meal Consumed 25% Feeding Ability Independent Urine Appearance Clear Clear Clear Urine Color Pale Pale Straw Urine Odor Normal Normal Stool Size Small Stool Color Brown Stool Consistency Loose # Voids 2 Weight 49.215 kg Medical - DS: Data Labs on day of discharge: Labs from last 24 hours 03/18/18 03/17/18 03/17/18 04:35 16:06 16:06 Sodium 140 Potassium 4.0 Chloride 101 Carbon Dioxide 25 Anion Gap 14.0 BUN 2 L Creatinine 0.3 L GFR Calculation 136 Glucose 92 Uric Acid 2.3 L Calcium 8.7 Phosphorus 3.7 Magnesium 1.7 Total Bilirubin < 0.2 Direct Bilirubin < 0.2 GGT 67 H AST 21 ALT 7 Alkaline Phosphatase 116 Lactate Dehydrogenase 375 H Total Protein 5.7 L Albumin 2.2 L Globulin 3.5 Albumin/Globulin Ratio 0.6 L Prealbumin Triglycerides 155 H Fluid Total Protein 3.3 Pleural Fluid Source Pleural Pleural Color Light yellow Pleural Appearance Clear Pleural RBC < [address] 100 Pleural Nuc Cells 59 Pleural Neutrophils 43 Pleural Lymphocytes 29 Pleural Monocytes 18 Pleural Plasma Cells Not Reportable Pleural Macrophages 9 Pleural Mesothelial 1 Pleural Diff Comment Pleural Total Protein 3.3 Pleural Albumin 1.4 Pleural LDH 94 Pleural Glucose 92 Pleural Amylase 364 03/17/18 14:35 Sodium 134 Potassium 3.9 Chloride 96 Carbon Dioxide 25 Anion Gap 13.0 BUN 3 L Creatinine 0.3 L GFR Calculation 136 Glucose 83 Uric Acid 2.7 Calcium 8.5 L Phosphorus 3.4 Magnesium 1.6 Total Bilirubin < 0.2 Direct Bilirubin < 0.2 GGT 76 H AST 19 ALT 9 Alkaline Phosphatase 135 H Lactate Dehydrogenase 248 Total Protein 6.4 Albumin 2.6 L Globulin 3.8 H Albumin/Globulin Ratio 0.7 L Prealbumin 12.7 L Triglycerides 140 Fluid Total Protein Pleural Fluid Source Pleural Color Pleural Appearance Pleural RBC Pleural Tot Cell Ct Pleural Nuc Cells Pleural Neutrophils Pleural Lymphocytes Pleural Monocytes Pleural Plasma Cells Pleural Macrophages Pleural Mesothelial Pleural Diff Comment Pleural Total Protein Pleural Albumin Pleural LDH Pleural Glucose Pleural Amylase Medical - DS: A/P - Patient/Caregiver Discharge Instructions Activity: increase activity as tolerated Diet: Low Fat (cont tube feeds) Additional Instructions: Low fat diet as tolerated. Cont tube feeds. Increase activity as tolerated. F[place] with [place] [facility] [place] (see appointment). GI in 5-7 days (see appointment). Your prescriptions are with your discharge information. Some of your prescriptions have been electronically sent to [facility] pharmacy. Return to ER for fever, pain not controlled with medication, nausea/vomiting, or any other concerns. Prescriptions: HYDROcodone/ACETAMINOPHEN [Viola 5-325 Tablet] 1 each PO Q4HP PRN #30 tab PRN Reason: Pain Lipase/Protease/Amylase [Steven Shoemaker 21,000 Unit Cap] 1 each PO AC #90 capsule.dr - Follow up Plan Follow up with: Jaxon Solano [Referring] - 04/01/18 8:00 am Ernesto Delgado MD [Physician] - 03/24/18 12:45 pm Jenn Smith ARNP [Primary Care Provider] - Disposition: Home, Self-Care Prognosis: Good Rehab Potential: Fair Overall status at discharge: patient is back to baseline
--- NOTE | 2018-03-18 16:06 | Magnetic Resonance Report ---
CLINICAL INFORMATION: Chronic pancreatitis with pseudocyst formation. Possible thrombus in the splenic vein on CT and also possible hepatoma in the left hepatic lobe on CT COMPARISON: Abdomen and pelvic CT from 03/16/2018 TECHNIQUE: Axial phase-in phase out lava pre and dynamic post Magnevist, T1 SSFSE T2 diffusion ADC prolapses stability FSPGR post Magnevist images were obtained. MRCP images were also obtained.. FINDINGS: The liver is normal in size, configuration and signal intensity. There is no evidence of a lesion in the left hepatic lobe which was suspected on CT. CT finding should be considered benign attenuation difference. The gallbladder is surgically absent. The hepatic and common bile ducts are normal in contour and caliber. Both kidneys, adrenal glands and aorta are normal in size, configuration and signal intensity. Scattered low signal foci within the pancreatic parenchyma compatible with calcifications of chronic pancreatitis. A 4.5 cm pseudocyst in the pancreatic tail is noted within adjacent 19 mm pseudocyst. The cyst communicate with Santorini's pancreatic duct which is moderately dilated and irregular spanning 5 mm. Findings palpable with chronic pancreatitis. There are also multiple extrapancreatic pseudocysts in the left upper quadrant within the perisplenic and subdiaphragmatic regions. These were also described on CT and unchanged. The largest is 6 cm in the lateral perisplenic region. There is no evidence of pancreatic necrosis, abscess or other more ominous complication of pancreatitis. PEG tube enters the anterior wall of the gastric body with the tube extending through the distal gastric lumen into the duodenum with the tip of the transverse duodenum. Stomach and visualized small/large bowel are grossly normal. There is no free air. No definite ascites. The portal vein and tributaries including the splenic, IMV and SMV veins are unremarkable - no evidence of splenic vein thrombosis. Moderate recurrent left pleural effusion noted IMPRESSION: 1. No evidence of left hepatic lobe lesion. The CT finding should be considered benign transient attenuation difference. The liver is unremarkable. 2. Multiple pancreatic pseudocysts in the pancreatic tail with scattered pseudocysts in the extrapancreatic soft tissues within the subdiaphragmatic and perisplenic regions They're unchanged from the recent CT. The largest, 4.4 cm, pseudocyst in the pancreatic tail communicate with Santorini's pancreatic duct which is moderately dilated and irregular compatible with chronic pancreatitis. There is no abscess, necrosis or other more significant complication of pancreatitis 3. Peg tube in satisfactory position 4. Moderate recurrent left pleural effusion. Recent left thoracentesis acknowledged Interpreted and Authenticated by: Ernesto Gomes 03/18/18
[2018-03-19] MEDS: HYDROmorphone 2 MG/ML VIAL IV PRN ×4 (00:55→10:10)
[2018-03-19] MEDS: 0.9 % SODIUM CHLORIDE 10 ML SYRINGE IV SCH (05:32)
[2018-03-19] MEDS: 0.9 % SODIUM CHLORIDE 1,000 ML IV SCH ×3 (06:11→07:55)
[2018-03-19] MEDS: HEPARIN 5,000 UNIT/ML VIAL SQ SCH (09:44)
[2018-03-19] MEDS: DOCUSATE SODIUM 100 MG CAPSULE PO SCH (09:44)
[2018-03-19] MEDS: FAMOTIDINE/PF 20 MG/2 ML VIAL IV SCH (10:04)
[2018-03-19] MEDS: CHLORHEXIDINE GLUCONATE 1 ML ORAL.SOL SWABMOUTH SCH (10:04)
[2018-03-19] MEDS: NICOTINE 21 MG PATCH TOPICAL SCH (10:04)
== END 2018-03-19 10:25 | disposition home or self-care (01) | DRG 439 ==
LOC: ED 07:16 → MEDSUR 17:17
PROVIDERS: ADMIT Internal Medicine; ATTEND Internal Medicine
CPT/HCPCS: 32555; 99223; 99231; A6213; A9577; J1170; J1644; J2405; J7030; J7120; Q9967

== ENCOUNTER 2018-03-22 10:04 | Inpatient (IN) ==
[2018-03-22] MEDS ORDERED: IOPAMIDOL 100 ML BOTTLE IV ONE (10:05)
[2018-03-22] MEDS ORDERED: ONDANSETRON 4 MG/2 ML VIAL IV ONE (10:22)
[2018-03-22] MEDS ORDERED: 0.9 % SODIUM CHLORIDE 1,000 ML IV ONE (10:22)
--- NOTE | 2018-03-22 10:29 | Emergency Department Note ---
Abdominal Pain HPI - General Chief Complaint: Abdominal Pain Stated Complaint: Abdominal pain Time Seen by Provider: 03/22/18 10:12 Source: patient Mode of arrival: ambulatory Limitations: no limitations - History of Present Illness HPI Narrative: 47-year-old with complicated history of chronic pancreatitis and pseudocyst comes in for pain worse since her discharge 16 March. She was here for several days and I did review that discharge summary from Dr. Vaz. Patient has a J-tube and has been using her tube feeds along with pancreatic enzymes but pain has been getting worse over the last 2-3 days. She is only on hydrocodone 5 for pain. Additionally noted is pleural effusion status post thoracentesis on her last admission. In the past she has abused alcohol but it is unclear when her last usage was-she would not answer my question directly. Has appointment with GI in 2 days Unfortunately patient is not in significant amount of pain and so it is difficult to get history and physical. I did attempt a full review of systems- she denies any other new symptoms MD Complaint: abdominal pain - Related Data Home Medications Medication Instructions Recorded Confirmed FLUoxetine HCL [Prozac] 60 mg PO HS 03/16/18 03/16/18 Previous Rx's Medication Instructions Recorded HYDROcodone/ACETAMINOPHEN [[place] 1 each PO Q4HP PRN #30 tab 03/18/18 5-325 Tablet] Lipase/Protease/Amylase [Pancreaze 1 each PO AC #90 capsule. 03/18/18 21,000 Unit Cap] Benzonatate [Tessalon Perle] 100 mg PO TIDP PRN #30 cap 03/19/18 Ondansetron HCl [Zofran ODT] 4 mg SL Q4HP PRN #40 tab 03/19/18 Allergies Allergy/AdvReac Type Severity Reaction Status Date / Time morphine Allergy Mild Itching Verified 03/22/18 10:04 Review of Systems All systems ED: reviewed and negative except as stated. Abdominal Pain PMH - Past Medical History Attestation: Yes: The following information was validated with the patient. Medical history: Reports: asthma, COPD, GERD (Peptic ulcer disease), other ( Cirrhosis, pancreatitis with pseudocysts) Surgical history ED: Reports: cholecystectomy, other (J-tube, repair of fractured jaw as a child) Psychiatric history: Reports: anxiety, depression - Social History Smoking status: Current every day smoker Alcohol use: Reports: Rarely, Recent Drug use: Reports: none Physical Exam Thin female. Some acute distress secondary to belly pain, preferring to sit up. Normocephalic atraumatic. No nasal discharge or congestion. Oropharynx is with dry buccal mucosa. Heart is regular rate and rhythm no murmur appreciated. Inferiorly displaced PMI. Lungs are basically clear to auscultation but she is moaning the whole time so it is difficult to sort out if she is developed a new pleural effusion. I finally did get her to lay back and let me take a look at her J-tube. She is very tender in this area and would not let me examine her belly further. No pedal edema. Normal posterior tibialis pulse. Alert Limitations: no limitations Course Vital Signs Temperature 97.7 F 03/22/18 10:05 Pulse Rate 82 03/22/18 10:05 Respiratory Rate 20 03/22/18 10:05 Blood Pressure 130/85 03/22/18 10:05 Pulse Oximetry (%) 98 03/22/18 10:05 Temperature 97.7 F 03/22/18 10:05 Pulse Rate 68 03/22/18 12:48 Respiratory Rate 16 03/22/18 12:48 Blood Pressure 143/79 03/22/18 12:46 Pulse Oximetry (%) 97 03/22/18 12:48 Abdominal Pain - Lab Data Lab results reviewed: Yes I reviewed the patient's lab results. Result diagrams: 03/22/18 10:22 03/22/18 10:22 Lab Results 03/22/18 03/22/18 03/22/18 Range/Units 10:22 10:22 10:22 WBC 7.9 (4.5-11.0) K/mcL RBC 4.03 (4.00-5.20) M/mcL Hgb 12.7 (12.0-15.0) g/dL Hct 38.6 (36.0-48.0) % POC Hct 39.0 (36.0-48.0) % MCV 95.8 (80.0-100.0) fL MCH 31.4 (26.0-34.0) pg MCHC 32.8 (31.0-36.0) g/dL RDW 17.0 H (11.5-14.5) % Plt Count 740 H (140-440) K/mcL MPV 9.0 (7.4-10.4) fL Gran % 67.7 (38.0-78.0) % Lymph % (Auto) 22.5 (15.5-49.0) % Nobles % (Auto) 6.8 (1.0-12.0) % Eos % (Auto) 2.3 (0.0-7.0) % Baso % (Auto) 0.7 (0.0-2.0) % Gran # 5.4 (1.8-8.0) K/mcL Lymph # (Auto) 1.8 (1.5-4.8) K/mcL Nobles # (Auto) 0.5 (0.1-0.9) K/mcL Eos # (Auto) 0.2 (0.0-0.7) K/mcL Baso # (Auto) 0.1 (0.0-0.3) K/mcL VBG Lactic Acid 1.0 (0.5-2.0) mmol/L POC Sodium 138 (133-145) mmol/L Sodium 137 (133-145) mmol/L POC Potassium 5.4 H (3.3-5.1) mmol/L Potassium 5.3 H (3.3-5.1) mmol/L POC Chloride 102 (96-108) mmol/L Chloride 99 (96-108) mmol/L Carbon Dioxide 28 (22-30) mmol/L POC Total CO2 28 (22-30) mmol/L Anion Gap 10.0 (8-16) POC BUN 12 (6-20) mg/dl BUN 10 (6-20) mg/dl Creatinine 0.4 L (0.6-1.1) mg/dl POC Creatinine 0.3 L (0.6-1.1) mg/dl GFR Calculation 124 Glucose 88 (70-105) mg/dL POC Glucose 88 (70-105) mg/dL Calcium 9.3 (8.6-10.4) mg/dl POC WB Ioniz Calcium 1.10 L (1.16-1.32) mmol/L Total Bilirubin 0.3 (0.0-1.0) mg/dL AST 20 (0-37) U/l ALT 9 (0-40) U/l Alkaline Phosphatase 132 H (39-117) U/L Total Protein 7.1 (5.9-8.4) gm/dL Albumin 2.9 L (3.2-5.2) gm/dL Globulin 4.2 H (2.2-3.7) gm/dL Albumin/Globulin Ratio 0.7 L (1.0-2.3) Amylase 299 H (28-100) U/L Lipase 214 H (7-60) U/L - Radiology Data Radiology results reviewed: Yes I reviewed the patient's radiology results. Chest x-ray shows recurrent left pleural effusion with compression of the left lower lobe CT scan abdomen and pelvis with contrast shows cirrhotic liver with mild ascites. Pancreatic inflammation is noted with with pseudocyst having shrunk a little bit. No new complication noted. CBD is normal Disposition Pt seen by ZOO KEEPER/PA only: No Clinical Impression: Acute on chronic pancreatitis, Hyperkalemia, Recurrent left pleural effusion Cirrhosis Qualifiers: Hepatic cirrhosis type: unspecified hepatic cirrhosis Ascites presence: with ascites Qualified Code(s): K74.60 - Unspecified cirrhosis of liver; R18.8 - Other ascites Summary: After attempting interview and exam workup ordered with laboratory CT scan x- ray. Pain treated with Dilaudid. Zofran and IV fluids started. Reviewed records Suspect recurrence of pancreatitis. Unclear if she had any alcohol lately. Her father is in the room as well and notes that she is getting worse the last couple days after initially getting better with treatment here. CT scan shows pancreatitis with pseudocysts. The pseudocyst are slightly decreased in size. Lab testing shows consistent with acute on chronic pancreatitis and mild hyperkalemia. Chest x-ray shows recurrent left pleural effusion-review of previous thoracentesis testing shows elevated amylase with that so could be related to liver or pancreas Discussed case with Dr. Cristobal Tabor, medical laboratory technicians, who agreed to consult on the patient. I did discuss the patient with Dr. Lata Mayes, hospitalist who agreed to accept the patient for further evaluation and management in the hospital Disposition: Xfer As Inpt ([facility]) Condition: Serious Referrals: Jenn Smith ARNP [Primary Care Provider] -
[2018-03-22] MEDS: HYDROmorphone 2 MG/ML VIAL IV PRN ×7 (10:30→22:03)
--- NOTE | 2018-03-22 10:45 | XRay Report ---
CLINICAL INFORMATION: hx of pleural effusion, pancreatitis COMPARISON: 03/17/2018 FINDINGS: Heart size, mediastinum and pulmonary vessels are normal. Small/moderate recurrent left pleural effusion has developed with subsegmental compressive atelectasis in the inferior left lower lobe and lingula. lungs are clear. Malunified old right clavicle fracture seen as. IMPRESSION: Small/moderate recurrent left pleural effusion with compressive atelectasis in the lingula and inferior left lower lobe. Interpreted and Authenticated by: Ernesto Gomes 03/22/18
[2018-03-22 11:23] LABS: Basophils # (Auto) 0.1 K/mcL (0.0-0.3); Basophils % (Auto) 0.7 % (0.0-2.0); Eosinophils # (Auto) 0.2 K/mcL (0.0-0.7); Eosinophils % (Auto) 2.3 % (0.0-7.0); Granulocytes % (Auto) 67.7 % (38.0-78.0); Lymphocytes # (Auto) 1.8 K/mcL (1.5-4.8); Lymphocytes % (Auto) 22.5 % (15.5-49.0); Mean Cell Volume 95.8 fL (80.0-100.0); Mean Corpuscular HGB Conc 32.8 g/dL (31.0-36.0); Mean Corpuscular Hemoglobin 31.4 pg (26.0-34.0); Monocytes # (Auto) 0.5 K/mcL (0.1-0.9); Monocytes % (Auto) 6.8 % (1.0-12.0); Platelet Count 740 K/mcL (140-440); RBC 4.03 M/mcL (4.00-5.20)
[2018-03-22 11:53] LABS: ALT/SGPT 9 U/l (0-40); Albumin 2.9 gm/dL (3.2-5.2); Albumin/Globulin Ratio 0.7 (1.0-2.3); Alkaline Phosphatase 132 U/L (39-117); Amylase 299 U/L (28-100); Blood Urea Nitrogen 10 mg/dl (6-20); Lipase 214 U/L (7-60)
--- NOTE | 2018-03-22 12:27 | Cat Scan Report ---
CLINICAL INFORMATION: Pancreatitis COMPARISON: Abdominal and pelvic CT less than one week prior 03/16/2018 and abdominal MRI 03/11/2018 TECHNIQUE: Following enteric contrast, 80 cc of Isovue-300 were injected intravenously, and 60 seconds later, 0.625 mm helical slices were obtained from the mid heart through the subtrochanteric regions. Following reconstruction, 2.5 mm sagittal, coronal and axial reformatted images were processed and reviewed at bone, lung and soft tissue windows. Five minutes later, 0.625 mm helical slices were obtained from the mid heart through the kidneys and viewed at soft tissue windows.The exam was performed using radiation dose optimization techniques including, but not limited to, automated exposure control, adjustment of the mA and/or kV according to patient size and use of iterative reconstruction technique. FINDINGS: Moderate recurrent left pleural effusion resulting in compressive atelectasis of the posterior left lower lobe and lingula.. Visualized heart is normal. Images through the abdomen show mild hepatomegaly with periportal edema and inhomogeneous attenuation suggesting hepatocellular inflammation. No focal hepatic lesions. The gallbladder is surgically absent.The intrahepatic and common bile ducts are normal caliber: CBD is 5 mm. Both kidneys, adrenal glands, spleen and aorta are normal. There are multiple calcifications scattered throughout the pancreatic parenchyma palpable with chronic pancreatitis. Pancreatic duct remains mildly dilated and irregular dilated, but unchanged. Mild parenchymal and extrapancreatic inflammation again noted. 3.2 cm pseudocyst in the pancreatic tail has decreased from 4.4 cm on the previous study. There are also multiple extrapancreatic pseudocysts which have decreased in size: Subdiaphragmatic pseudocyst has decreased from 4 to 2.9 cm, a pseudocyst in the lateral subdiaphragmatic region has decreased from 2.6 to 2 cm. A lateral splenic pseudocyst has decreased from 3.2 to 2 cm. There is mild mesenteric inflammation and modest amount of free fluid which is unchanged. PEG tube remains in satisfactory position entering the anterior wall of the gastric body with tip in the descending duodenum.. Stomach, small and large bowel show mild ileus pattern. There is no free air. Images should the pelvis show urinary bladder to be normal. Retroflexed uterus is is unremarkable. Bone windows show no osseous abnormality IMPRESSION: 1. Chronic pancreatitis. Intrapancreatic and extrapancreatic pseudocysts have decreased modestly from the comparison CT less than one week prior. Mild inflammation peripancreatic fat planes and mesenteric inflammation with ascites show slight decrease. There is no evidence of necrosis or other more ominous complication of pancreatitis. 2. Mild hepatomegaly with inhomogeneous attenuation and periportal edema suggesting inflammation or developing cirrhosis. No change 3. Moderate recurrent left pleural effusion with compressive atelectasis left lower lobe and lingula 4. Mild ileus 5. 3 cm fat-containing dermoid cyst in the left ovarian region with a 2 cm solid component - stable Interpreted and Authenticated by: Ernesto Gomes 03/22/18
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
[2018-03-22] MEDS ORDERED: PANTOPRAZOLE 40 MG VIAL IV ONE (15:23)
[2018-03-22] MEDS: KETOROLAC 30 MG/ML VIAL IV PRN (15:39)
[2018-03-22] MEDS: 0.9 % SODIUM CHLORIDE 10 ML SYRINGE IV SCH ×2 (15:42→22:35)
[2018-03-22] MEDS: LACTATED RINGERS 1,000 ML IV SCH ×2 (15:42→23:40)
[2018-03-22] MEDS: FLUoxetine HCL 20 MG CAPSULE PO SCH (19:56)
[2018-03-23] MEDS: HYDROmorphone 2 MG TABLET PO PRN (00:03)
[2018-03-23] MEDS: KETOROLAC 30 MG/ML VIAL IV PRN (02:05)
[2018-03-23] MEDS: 0.9 % SODIUM CHLORIDE 10 ML SYRINGE IV SCH ×3 (04:38→20:55)
[2018-03-23] MEDS: HYDROmorphone 2 MG/ML VIAL IV PRN ×8 (04:57→22:38)
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
[2018-03-23 06:30] LABS: Basophils # (Auto) 0 K/mcL (0.0-0.3); Basophils % (Auto) 0.8 % (0.0-2.0); Eosinophils # (Auto) 0.2 K/mcL (0.0-0.7); Eosinophils % (Auto) 3.7 % (0.0-7.0); Granulocytes % (Auto) 51.7 % (38.0-78.0); Lymphocytes # (Auto) 1.9 K/mcL (1.5-4.8); Lymphocytes % (Auto) 35.7 % (15.5-49.0); Mean Cell Volume 96.8 fL (80.0-100.0); Mean Corpuscular HGB Conc 32.6 g/dL (31.0-36.0); Mean Corpuscular Hemoglobin 31.6 pg (26.0-34.0); Monocytes # (Auto) 0.4 K/mcL (0.1-0.9); Monocytes % (Auto) 8.1 % (1.0-12.0); Platelet Count 644 K/mcL (140-440); RBC 3.24 M/mcL (4.00-5.20)
[2018-03-23 07:12] LABS: ALT/SGPT 7 U/l (0-40); Albumin 2.6 gm/dL (3.2-5.2); Albumin/Globulin Ratio 0.8 (1.0-2.3); Alkaline Phosphatase 106 U/L (39-117); Bilirubin,Direct < 0.2 mg/dL (0.0-0.3); Blood Urea Nitrogen 7 mg/dl (6-20); Gamma Glutamyl Transpeptidase 50 U/L (5-36); Uric Acid 2.7 mg/dL (2.5-8.0)
[2018-03-23] MEDS: LACTATED RINGERS 1,000 ML IV SCH ×3 (07:25→23:17)
[2018-03-23] MEDS: PANTOPRAZOLE 40 MG VIAL IV SCH (07:25)
[2018-03-23] MEDS: ENOXAPARIN 40 MG/0.4 ML SYRINGE SQ SCH (08:59)
[2018-03-23] MEDS: ONDANSETRON 4 MG/2 ML VIAL IV PRN ×2 (10:08→17:51)
--- NOTE | 2018-03-23 17:47 | Internal Med Progress Note ---
Medical - PN: Subj Patient information: Note initiated : 03/23/18 at 5:45 pm Service Date, if different from initiated Date: [] Patient: Jaleesa Harrison a 47 y/o F admitted on 03/22/18 for Abdominal pain. Chief Complaint: f/u pancreatitis Interval history: Ms. Harrison is a 47 year old F with a history of alcohol abuse, alcohol related chronic pancreatitis with several admissions at different hospitals this year, he was admitted here 03/16 and discharged 03/19. Patient states that when she was discharged on Saturday, she was having some pain but it was tolerable and she was able to treated with [place]. Since that time it is worsened each day since discharge. It is up to 9/10 in intensity at times. [place] was barely touching the pain. It is associated with nausea, she' s had no emesis. He is in the epigastrium and left lateral abdomen, some radiation to the back. Timing has been constant, character has been progressive in intensity. She's been unable to take in minimal by mouth intake (had been on clear liquids) however there has been no change in pain with oral intake. She denies any alcohol ingestion since the time of her discharge. I discussed alcohol ingestion she had earlier in February and she verified that which was documented in Dr. Vaz's history and physical from last week, though she wanted to minimize her alcohol intake which occurred on when her father queried her about it. (Her father was in the room during the latter part of my interview, she gave me permission to speak freely in front of him.) Further imaging in the emergency department showed persistent pseudocyst, though they appear to be mildly improved from 03/16. There are still inflammatory changes around the pancreas. Her lipase is elevated at 214, which is higher than it was at her admission last week. She also has mild ascites and recurrent left pleural effusion noted. She is being admitted for further treatment of acute on chronic pancreatitis flare. 03/23 Feeling better, still requiring IV hydromorphone for pain control. Apparently had not picked up Creon from pharmacy after discharge last week. Had not been taking supplements after she was discharged prior to readmit. Currently asking for something to eat, at this point will begin tube feeds, but avoid PO feeding. - Constitutional Vitals: Vital Signs Temp Pulse Resp BP Pulse Ox 97.9 F 74 20 135/87 98 03/23/18 15:48 03/23/18 15:48 03/23/18 15:48 03/23/18 15:48 03/23/18 15:48 Period Temp Pulse Resp BP Sys/Castaneda Pulse Ox Last 24 Hr 96.8 F-98.7 F 52-74 12-20 125-137/75-87 92-98 Intake and Output 03/23/18 03/23/18 03/23/18 05:59 13:59 21:59 Intake Total 996 / 996 969 / 969 1100 / 1100 Output Total 550 / 550 375 / 375 400 / 400 Balance 446 / 446 594 / 594 700 / 700 Weight 108 lb 8 oz Patient Weight 03/24/18 05:59 Weight 108 lb 8 oz Intake & Output: Intake & Output 03/23/18 03/23/18 03/23/18 05:59 13:59 21:59 Intake Total 996 / 996 969 / 969 1100 / 1100 Output Total 550 / 550 375 / 375 400 / 400 Balance 446 / 446 594 / 594 700 / 700 Weight 108 lb 8 oz Intake: IV 996 / 996 969 / 969 1000 / 1000 Lactated Ringers 1,000 ml @ 125 996 / 996 969 / 969 1000 / 1000 mls/hr IV .Q8H [facility] Rx#: [id number] Oral 100 / 100 Output: Void Amount 550 / 550 375 / 375 400 / 400 Other: Urine Appearance Clear Clear Clear Urine Color Bright Yellow Bright Yellow Bright Yellow Urine Odor Normal Normal Stool Size Moderate Stool Color Brown Stool Consistency Soft Formed # Voids 1 # Bowel Movements 1 Exam: General: Seen in bed, looks comfortable Chest: Clear, liver Cardio vascular: Regular, no edema Abdomen: Moderate to severe left lateral abdominal tenderness with voluntary guarding, no rebound. G-tube in place. Neuro: Alert, oriented 3, nonfocal Medical - PN: Obj Da - Labs CBC & Chem 7: 03/23/18 04:55 03/23/18 04:55 Labs: Abnormal Lab Results 03/23/18 03/23/18 03/22/18 04:55 04:55 10:22 RBC 3.24 L Hgb 10.2 L Hct 31.4 L RDW 17.0 H Plt Count 644 H POC Potassium 5.4 H Potassium 5.3 H Creatinine 0.4 L 0.4 L POC Creatinine 0.3 L POC WB Ioniz Calcium 1.10 L GGT 50 H Alkaline Phosphatase 132 H Total Protein 5.7 L Albumin 2.6 L 2.9 L Globulin 4.2 H Albumin/Globulin Ratio 0.8 L 0.7 L Triglycerides 154 H Amylase 299 H Lipase 214 H 03/22/18 10:22 RBC Hgb Hct RDW 17.0 H Plt Count 740 H POC Potassium Potassium Creatinine POC Creatinine POC WB Ioniz Calcium GGT Alkaline Phosphatase Total Protein Albumin Globulin Albumin/Globulin Ratio Triglycerides Amylase Lipase Meds: Medications Acetaminophen (Tylenol) 650 mg PO Q6HP PRN PRN Reason: PAIN/FEVER > 101 Enoxaparin Sodium (Lovenox) 40 mg SQ DAILY [facility] Last Admin: 03/23/18 08:59 Dose: 40 mg Fluoxetine HCl (Prozac) 60 mg PO HS [facility] Last Admin: 03/22/18 19:56 Dose: 60 mg Hydromorphone HCl (Dilaudid) 1 mg IV Q1HP PRN PRN Reason: PAIN LEVEL > 6 Last Admin: 03/23/18 15:29 Dose: 1 mg Hydromorphone HCl (Dilaudid) 2 mg PO Q4HP PRN PRN Reason: PAIN LEVEL 3-6 Last Admin: 03/23/18 00:03 Dose: 2 mg Lactated Ringer's (Lactated Ringers) 1,000 mls @ 125 mls/hr IV .Q8H [facility] Last Admin: 03/23/18 15:30 Dose: 125 mls/hr Ketorolac Tromethamine (Toradol) 30 mg IV Q6HP PRN PRN Reason: Pain Stop: 03/24/18 13:49 Last Admin: 03/23/18 02:05 Dose: 30 mg Ondansetron HCl (Zofran) 4 mg IV Q6HP PRN PRN Reason: Nausea And Vomiting Last Admin: 03/23/18 10:08 Dose: 4 mg Pantoprazole Sodium (Protonix) 40 mg IV QAMAC [facility] Last Admin: 03/23/18 07:25 Dose: 40 mg Pneumococcal Polyvalent Vaccine (Pneumovax 23) 0.5 ml IM .ONCE ONE Stop: 03/24/18 10:01 Sodium Chloride (Saline Flush) 10 ml IV Q8 [facility] Last Admin: 03/23/18 13:56 Dose: Not Given Medical - PN: A/P (1) Acute on chronic pancreatitis Status: Acute Current Visit: Yes - Narrative A/P Narrative: 47-year-old female with history of chronic pancreatitis presents with worsening abdominal pain over the last 3 days following discharge from this facility for acute on chronic pancreatitis flare. Acute on chronic pancreatitis. Has pseudocyst, which may actually be a bit improved on scanning. Elevated lipase, significant abdominal pain. Still requiring intravenous opioids. May have failed to progress at home due to having not gotten Creon from pharmacy. Original flare, suspect to be related to alcohol ingestion February. Plan: Continue NPO, begin enteral feeds via G-tube. Continue IV opioids and oral opioids for pain with ketorolac as adjunct. Monitor electrolytes. Left pleural effusion. Had elevated amylase on diagnostic and therapeutic paracentesis last week. Likely related to inflammatory change from her pancreatitis. She is saturating well without dyspnea. She is not eager to have repeat thoracentesis. Plan: Monitor for now Alcohol abuse history withdrawal. Last alcohol consumption was approximately Thanksgiving per history she is given previously and confirms to me. Low likelihood of alcohol withdrawal. Plan: Monitor Medical - PN: Qual - VTE Deep Vein Thrombosis/Pulmonary Embolism Present on Admission: No
[2018-03-23] MEDS: FLUoxetine HCL 20 MG CAPSULE PO SCH (20:35)
[2018-03-23] MEDS: LIPASE/PROTEASE/AMYLASE 1 CAP CAPSULE PO SCH (20:54)
[2018-03-24] MEDS: ONDANSETRON 4 MG/2 ML VIAL IV PRN ×2 (00:07→21:26)
[2018-03-24] MEDS: HYDROmorphone 2 MG/ML VIAL IV PRN ×9 (01:37→20:20)
[2018-03-24] MEDS: HYDROmorphone 2 MG TABLET PO PRN ×2 (02:46→23:17)
[2018-03-24] MEDS: 0.9 % SODIUM CHLORIDE 10 ML SYRINGE IV SCH ×3 (04:12→20:55)
[2018-03-24 06:23] LABS: Basophils # (Auto) 0.1 K/mcL (0.0-0.3); Basophils % (Auto) 0.9 % (0.0-2.0); Eosinophils # (Auto) 0.2 K/mcL (0.0-0.7); Granulocytes % (Auto) 60.9 % (38.0-78.0); Lymphocytes # (Auto) 1.6 K/mcL (1.5-4.8); Lymphocytes % (Auto) 26.4 % (15.5-49.0); Mean Cell Volume 97.1 fL (80.0-100.0); Mean Corpuscular HGB Conc 32.4 g/dL (31.0-36.0); Mean Corpuscular Hemoglobin 31.5 pg (26.0-34.0); Monocytes # (Auto) 0.5 K/mcL (0.1-0.9); Monocytes % (Auto) 8.8 % (1.0-12.0); Platelet Count 431 K/mcL (140-440); Red Cell Distribution Width 15.8 % (11.5-14.5)
[2018-03-24 06:49] LABS: ALT/SGPT 9 U/l (0-40); Albumin 2.4 gm/dL (3.2-5.2); Albumin/Globulin Ratio 0.7 (1.0-2.3); Alkaline Phosphatase 117 U/L (39-117); Bilirubin,Direct < 0.2 mg/dL (0.0-0.3); Blood Urea Nitrogen 4 mg/dl (6-20); Gamma Glutamyl Transpeptidase 55 U/L (5-36); Lipase 82 U/L (7-60); Uric Acid 2.7 mg/dL (2.5-8.0)
[2018-03-24] MEDS: LACTATED RINGERS 1,000 ML IV SCH ×3 (06:51→22:31)
[2018-03-24] MEDS: PANTOPRAZOLE 40 MG VIAL IV SCH (06:51)
[2018-03-24] MEDS: ENOXAPARIN 40 MG/0.4 ML SYRINGE SQ SCH (08:57)
[2018-03-24] MEDS: LIPASE/PROTEASE/AMYLASE 1 CAP CAPSULE PO SCH ×3 (08:57→20:22)
[2018-03-24] MEDS ORDERED: PNEUMOCOCCAL 23-VAL P-SAC VAC 0.5 ML VIAL IM ONE (10:00)
--- NOTE | 2018-03-24 10:36 | Internal Med Progress Note ---
Medical - PN: Subj Patient information: Note initiated : 03/24/18 at 10:34 am Service Date, if different from initiated Date: [] Patient: Jaleesa Harrison a 47 y/o F admitted on 03/22/18 for Abdominal pain. Chief Complaint: f/u pancreatitis Interval history: Ms. Harrison is a 47 year old F with a history of alcohol abuse, alcohol related chronic pancreatitis with several admissions at different hospitals this year, he was admitted here 03/16 and discharged 03/19. Patient states that when she was discharged on Saturday, she was having some pain but it was tolerable and she was able to treated with [place]. Since that time it is worsened each day since discharge. It is up to 9/10 in intensity at times. [place] was barely touching the pain. It is associated with nausea, she' s had no emesis. He is in the epigastrium and left lateral abdomen, some radiation to the back. Timing has been constant, character has been progressive in intensity. She's been unable to take in minimal by mouth intake (had been on clear liquids) however there has been no change in pain with oral intake. She denies any alcohol ingestion since the time of her discharge. I discussed alcohol ingestion she had earlier in February and she verified that which was documented in Dr. Vaz's history and physical from last week, though she wanted to minimize her alcohol intake which occurred on when her father queried her about it. (Her father was in the room during the latter part of my interview, she gave me permission to speak freely in front of him.) Further imaging in the emergency department showed persistent pseudocyst, though they appear to be mildly improved from 03/16. There are still inflammatory changes around the pancreas. Her lipase is elevated at 214, which is higher than it was at her admission last week. She also has mild ascites and recurrent left pleural effusion noted. She is being admitted for further treatment of acute on chronic pancreatitis flare. 03/23 Feeling better, still requiring IV hydromorphone for pain control. Apparently had not picked up Creon from pharmacy after discharge last week. Had not been taking supplements after she was discharged prior to readmit. Currently asking for something to eat, at this point will begin tube feeds, but avoid PO feeding. 03/24 Tolerating tube feeds at initial rate. Tolerating oral Creon. Complains of being hungry wanted to take more by mouth. Still using significant IV opioids for pain control. 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 Discussed with nursing. - Constitutional Vitals: Vital Signs Temp Pulse Resp BP Pulse Ox 97.4 F 59 L 16 138/82 95 03/24/18 06:17 03/24/18 03:55 03/24/18 07:30 03/24/18 06:17 03/24/18 07:30 Period Temp Pulse Resp BP Sys/Castaneda Pulse Ox Last 24 Hr 97.4 F-98.7 F 55-74 12-20 129-138/77-87 93-98 Intake and Output 03/23/18 03/24/18 03/24/18 21:59 05:59 13:59 Intake Total 1100 / 1100 1246 / 1246 946 / 946 Output Total 1050 / 1050 1450 / 1450 Balance 50 / 50 -204 / -204 946 / 946 Weight 112 lb Intake & Output: Intake & Output 03/23/18 03/24/18 03/24/18 21:59 05:59 13:59 Intake Total 1100 / 1100 1246 / 1246 946 / 946 Output Total 1050 / 1050 1450 / 1450 Balance 50 / 50 -204 / -204 946 / 946 Weight 112 lb Intake: IV 1000 / 1000 973 / 973 946 / 946 Lactated Ringers 1,000 ml @ 125 1000 / 1000 973 / 973 946 / 946 mls/hr IV .Q8H [facility] Rx#: [id number] Oral 100 / 100 90 / 90 Tube Feeding 123 / 123 GI Tube Flush 60 / 60 Output: Void Amount 1050 / 1050 1450 / 1450 Other: Urine Appearance Clear Clear Urine Color Straw Bright Yellow Bright Yellow Urine Odor Normal Normal Stool Size Moderate Stool Color Brown Stool Consistency Soft Formed # Bowel Movements 1 Exam: General: In bed, looks comfortable Chest: Clear, no rales Cardio vascular: Regular Abdomen: Soft with voluntary guarding during exam of the epigastrium and left lateral area, moderate tenderness, no rebound. Active bowel sounds Neuro: Alert, oriented 3, moves all extremities equally, nonfocal. Medical - PN: Obj Da - Labs CBC & Chem 7: 03/24/18 04:30 03/24/18 04:30 Labs: Abnormal Lab Results 03/24/18 03/24/18 03/23/18 04:30 04:30 04:55 RBC 3.40 L Hgb 10.7 L Hct 33.0 L RDW 15.8 H Plt Count POC Potassium Potassium BUN 4 L Creatinine 0.4 L 0.4 L POC Creatinine POC WB Ioniz Calcium GGT 55 H 50 H Alkaline Phosphatase Lactate Dehydrogenase 401 H Total Protein 5.7 L 5.7 L Albumin 2.4 L 2.6 L Globulin Albumin/Globulin Ratio 0.7 L 0.8 L Triglycerides 154 H Amylase Lipase 82 H 03/23/18 03/22/18 03/22/18 04:55 10:22 10:22 RBC 3.24 L Hgb 10.2 L Hct 31.4 L RDW 17.0 H 17.0 H Plt Count 644 H 740 H POC Potassium 5.4 H Potassium 5.3 H BUN Creatinine 0.4 L POC Creatinine 0.3 L POC WB Ioniz Calcium 1.10 L GGT Alkaline Phosphatase 132 H Lactate Dehydrogenase Total Protein Albumin 2.9 L Globulin 4.2 H Albumin/Globulin Ratio 0.7 L Triglycerides Amylase 299 H Lipase 214 H Meds: Medications Acetaminophen (Tylenol) 650 mg PO Q6HP PRN PRN Reason: PAIN/FEVER > 101 Lipase/Protease/Amylase (Creon) 1 cap PO TID [facility] Last Admin: 03/24/18 08:57 Dose: 1 cap Enoxaparin Sodium (Lovenox) 40 mg SQ DAILY [facility] Last Admin: 03/24/18 08:57 Dose: 40 mg Fluoxetine HCl (Prozac) 60 mg PO HS [facility] Last Admin: 03/23/18 20:35 Dose: 60 mg Hydromorphone HCl (Dilaudid) 1 mg IV Q1HP PRN PRN Reason: PAIN LEVEL > 6 Last Admin: 03/24/18 08:56 Dose: 1 mg Hydromorphone HCl (Dilaudid) 2 mg PO Q4HP PRN PRN Reason: PAIN LEVEL 3-6 Last Admin: 03/24/18 02:46 Dose: 2 mg Lactated Ringer's (Lactated Ringers) 1,000 mls @ 125 mls/hr IV .Q8H [facility] Last Admin: 03/24/18 06:51 Dose: 125 mls/hr Ketorolac Tromethamine (Toradol) 30 mg IV Q6HP PRN PRN Reason: Pain Stop: 03/24/18 13:49 Last Admin: 03/23/18 02:05 Dose: 30 mg Ondansetron HCl (Zofran) 4 mg IV Q6HP PRN PRN Reason: Nausea And Vomiting Last Admin: 03/24/18 00:07 Dose: 4 mg Pantoprazole Sodium (Protonix) 40 mg IV QAMAC [facility] Last Admin: 03/24/18 06:51 Dose: 40 mg Sodium Chloride (Saline Flush) 10 ml IV Q8 [facility] Last Admin: 03/24/18 04:12 Dose: Not Given Medical - PN: A/P (1) Acute on chronic pancreatitis Status: Acute Current Visit: Yes - Narrative A/P Narrative: 47-year-old female with history of chronic pancreatitis presents with worsening abdominal pain over the last 3 days following discharge from this facility for acute on chronic pancreatitis flare. Acute on chronic pancreatitis. Appears to be mild acute component on top of chronic component which likely failed to progress as had difficulty in getting Creon from pharmacy at discharge last week. Has pseudocyst, which may actually be a bit improved on scanning. Elevated lipase, significant abdominal pain at presentation. Starting enteral feeds, however still requiring management of pain with intravenous opioids. Original flare, suspect to be related to alcohol ingestion February. Plan: Continue NPO, titrate up enteral feeds via G-tube to goal 30 ml/hr. Continue Creon, continue IV opioids and oral opioids for pain with ketorolac as adjunct. Monitor electrolytes. Left pleural effusion. Had elevated amylase on diagnostic and therapeutic paracentesis last week. Likely related to inflammatory change from her pancreatitis. She is saturating well without dyspnea. She is not eager to have repeat thoracentesis. Plan: Monitor for now Alcohol abuse history withdrawal. Last alcohol consumption was approximately Thanksgiving per history she is given previously and confirms to me. Low likelihood of alcohol withdrawal. Plan: Monitor Disposition: Titrate up tube feeds, try to transition to oral pain regimen. Expect addition of Creon may help with chronic pancreatitis pain, and may be discharged in 2448 hours. Medical - PN: Qual - VTE Deep Vein Thrombosis/Pulmonary Embolism Present on Admission: No
[2018-03-24] MEDS: FLUoxetine HCL 20 MG CAPSULE PO SCH (20:22)
[2018-03-25] MEDS: HYDROmorphone 2 MG/ML VIAL IV PRN ×4 (00:03→07:12)
[2018-03-25] MEDS: HYDROmorphone 2 MG TABLET PO PRN ×5 (03:41→19:58)
[2018-03-25] MEDS: 0.9 % SODIUM CHLORIDE 10 ML SYRINGE IV SCH ×3 (04:48→20:00)
[2018-03-25] MEDS: PANTOPRAZOLE 40 MG VIAL IV SCH (07:03)
[2018-03-25] MEDS: LACTATED RINGERS 1,000 ML IV SCH ×3 (07:03→22:57)
[2018-03-25] MEDS: LIPASE/PROTEASE/AMYLASE 1 CAP CAPSULE PO SCH ×3 (07:52→19:58)
[2018-03-25] MEDS: ENOXAPARIN 40 MG/0.4 ML SYRINGE SQ SCH (07:52)
--- NOTE | 2018-03-25 09:29 | Internal Med Progress Note ---
Medical - PN: Subj Patient information: Note initiated : 03/25/18 at 9:26 am Service Date, if different from initiated Date: [] Patient: Jaleesa Harrison a 47 y/o F admitted on 03/22/18 for Abdominal pain. Chief Complaint: [] Interval history: Ms. Harrison is a 47 year old F with a history of alcohol abuse, alcohol related chronic pancreatitis with several admissions at different hospitals this year, he was admitted here 03/16 and discharged 03/19. Patient states that when she was discharged on Saturday, she was having some pain but it was tolerable and she was able to treated with [place]. Since that time it is worsened each day since discharge. It is up to 9/10 in intensity at times. [place] was barely touching the pain. It is associated with nausea, she' s had no emesis. He is in the epigastrium and left lateral abdomen, some radiation to the back. Timing has been constant, character has been progressive in intensity. She's been unable to take in minimal by mouth intake (had been on clear liquids) however there has been no change in pain with oral intake. She denies any alcohol ingestion since the time of her discharge. I discussed alcohol ingestion she had earlier in February and she verified that which was documented in Dr. Vaz's history and physical from last week, though she wanted to minimize her alcohol intake which occurred on when her father queried her about it. (Her father was in the room during the latter part of my interview, she gave me permission to speak freely in front of him.) Further imaging in the emergency department showed persistent pseudocyst, though they appear to be mildly improved from 03/16. There are still inflammatory changes around the pancreas. Her lipase is elevated at 214, which is higher than it was at her admission last week. She also has mild ascites and recurrent left pleural effusion noted. She is being admitted for further treatment of acute on chronic pancreatitis flare. 03/23 Feeling better, still requiring IV hydromorphone for pain control. Apparently had not picked up Creon from pharmacy after discharge last week. Had not been taking supplements after she was discharged prior to readmit. Currently asking for something to eat, at this point will begin tube feeds, but avoid PO feeding. 03/24 Tolerating tube feeds at initial rate. Tolerating oral Creon. Complains of being hungry wanted to take more by mouth. Still using significant IV opioids for pain control. 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 Discussed with nursing. 03/25-patient doing well. Ongoing tube feeds. Complains of abdominal pain. Overnight significant heartburn responding well to PPI/antacid. Requesting GI eval in light of chronic bronchitis. Patient was due to see Dr. Zayas however due to hospitalization unable to follow-up. GI Dr. Tabor on board. Patient carries a poor prognosis if she continues to drink with recurrent pancreatitis flares. No overnight fever chills. Pain much improved. - Constitutional Vitals: Vital Signs Temp Pulse Resp BP Pulse Ox 96.8 F L 65 18 151/73 95 03/25/18 07:13 03/25/18 07:13 03/25/18 07:13 03/25/18 07:13 03/25/18 07:13 Period Temp Pulse Resp BP Sys/Castaneda Pulse Ox Last 24 Hr 96.8 F-98.9 F 58-65 14-20 132-151/73-89 92-96 Intake and Output 03/24/18 03/25/18 03/25/18 21:59 05:59 13:59 Intake Total 1581 / 1581 1418 / 1418 1000 / 1000 Output Total 2049 Balance -469 / -469 -682 / -682 1000 / 1000 Weight 106 lb Intake & Output: Intake & Output 03/24/18 03/25/18 03/25/18 21:59 05:59 13:59 Intake Total 1581 / 1581 1418 / 1418 1000 / 1000 Output Total 2049 Balance -469 / -469 -682 / -682 1000 / 1000 Weight 106 lb Intake: IV 938 / 938 1000 / 1000 1000 / 1000 Lactated Ringers 1,000 ml @ 125 938 / 938 1000 / 1000 1000 / 1000 mls/hr IV .Q8H [facility] Rx#: [id number] Oral 100 / 100 180 / 180 Tube Feeding 393 / 393 208 / 208 GI Tube Flush 150 / 150 30 / 30 Output: Void Amount 2049 Other: Urine Appearance Clear Clear Urine Color Straw Pale Urine Odor Normal Normal Stool Size Moderate Stool Color Brown Stool Consistency Soft # Voids 3 # Bowel Movements 1 General appearance: moderate distress Exam: Anxious and distressed G-tube in place Soft abdomen Medical - PN: Obj Da - Labs CBC & Chem 7: 03/24/18 04:30 03/24/18 04:30 Labs: Abnormal Lab Results 03/24/18 03/24/18 03/23/18 04:30 04:30 04:55 RBC 3.40 L Hgb 10.7 L Hct 33.0 L RDW 15.8 H Plt Count POC Potassium Potassium BUN 4 L Creatinine 0.4 L 0.4 L POC Creatinine POC WB Ioniz Calcium GGT 55 H 50 H Alkaline Phosphatase Lactate Dehydrogenase 401 H Total Protein 5.7 L 5.7 L Albumin 2.4 L 2.6 L Globulin Albumin/Globulin Ratio 0.7 L 0.8 L Triglycerides 154 H Amylase Lipase 82 H 03/23/18 03/22/18 03/22/18 04:55 10:22 10:22 RBC 3.24 L Hgb 10.2 L Hct 31.4 L RDW 17.0 H 17.0 H Plt Count 644 H 740 H POC Potassium 5.4 H Potassium 5.3 H BUN Creatinine 0.4 L POC Creatinine 0.3 L POC WB Ioniz Calcium 1.10 L GGT Alkaline Phosphatase 132 H Lactate Dehydrogenase Total Protein Albumin 2.9 L Globulin 4.2 H Albumin/Globulin Ratio 0.7 L Triglycerides Amylase 299 H Lipase 214 H Meds: Medications Acetaminophen (Tylenol) 650 mg PO Q6HP PRN PRN Reason: PAIN/FEVER > 101 Lipase/Protease/Amylase (Creon) 1 cap PO TID [facility] Last Admin: 03/25/18 07:52 Dose: 1 cap Enoxaparin Sodium (Lovenox) 40 mg SQ DAILY [facility] Last Admin: 03/25/18 07:52 Dose: 40 mg Fluoxetine HCl (Prozac) 60 mg PO HS [facility] Last Admin: 03/24/18 20:22 Dose: 60 mg Hydromorphone HCl (Dilaudid) 2 mg PO Q4HP PRN PRN Reason: PAIN LEVEL 3-6 Last Admin: 03/25/18 07:52 Dose: 2 mg Lactated Ringer's (Lactated Ringers) 1,000 mls @ 125 mls/hr IV .Q8H [facility] Last Admin: 03/25/18 07:03 Dose: 125 mls/hr Ondansetron HCl (Zofran) 4 mg IV Q6HP PRN PRN Reason: Nausea And Vomiting Last Admin: 03/24/18 21:26 Dose: 4 mg Pantoprazole Sodium (Protonix) 40 mg IV QAMAC [facility] Last Admin: 03/25/18 07:03 Dose: 40 mg Sodium Chloride (Saline Flush) 10 ml IV Q8 [facility] Last Admin: 03/25/18 04:48 Dose: Not Given Medical - PN: A/P - Time Spent With Patient Total time spent is greater than 50% in coordination of care (as documented) at patient's floor/unit and/or counseling patient: 25 - 35 minutes (1) Acute on chronic pancreatitis Status: Acute Assessment and plan: 47-year-old female with history of chronic pancreatitis presents with worsening abdominal pain over the last 3 days following discharge from this facility for acute on chronic pancreatitis flare. * Acute on chronic pancreatitis. Has pseudocyst, which may actually be a bit improved on imaging. Lipase downtrending. Improved abdominal pain. Continue Creon. Original flare, suspect to be related to alcohol ingestion February. * Left pleural effusion. Status post thoracentesis. Elevated amylase on studies.. Likely related to inflammatory change from her pancreatitis. No signs of respiratory discomfort. * Alcohol abuse no withdrawals noted- Plan * Enteral feeding * Pain management * Nutrition support * Discharge planning * Outpatient GI referral Current Visit: Yes Medical - PN: Qual - VTE Deep Vein Thrombosis/Pulmonary Embolism Present on Admission: No
[2018-03-25] MEDS: ONDANSETRON 4 MG/2 ML VIAL IV PRN ×2 (15:00→22:57)
[2018-03-25 15:21] LABS: Basophils # (Auto) 0.1 K/mcL (0.0-0.3); Basophils % (Auto) 0.9 % (0.0-2.0); Eosinophils # (Auto) 0.1 K/mcL (0.0-0.7); Granulocytes % (Auto) 64.6 % (38.0-78.0); Lymphocytes # (Auto) 1.6 K/mcL (1.5-4.8); Lymphocytes % (Auto) 24.5 % (15.5-49.0); Mean Cell Volume 95.8 fL (80.0-100.0); Mean Corpuscular Hemoglobin 31.6 pg (26.0-34.0); Monocytes # (Auto) 0.5 K/mcL (0.1-0.9); Platelet Count 499 K/mcL (140-440); RBC 3.35 M/mcL (4.00-5.20); Red Cell Distribution Width 16.1 % (11.5-14.5)
[2018-03-25 15:56] LABS: ALT/SGPT 8 U/l (0-40); Albumin 2.7 gm/dL (3.2-5.2); Albumin/Globulin Ratio 0.8 (1.0-2.3); Alkaline Phosphatase 131 U/L (39-117); Blood Urea Nitrogen 3 mg/dl (6-20); C-Reactive Protein 0.9 mg/dl (0.0-0.8)
[2018-03-25] MEDS: FLUoxetine HCL 20 MG CAPSULE PO SCH (19:59)
[2018-03-26] MEDS: HYDROmorphone 2 MG TABLET PO PRN ×6 (00:07→20:03)
[2018-03-26] MEDS: 0.9 % SODIUM CHLORIDE 10 ML SYRINGE IV SCH ×3 (05:15→20:04)
[2018-03-26] MEDS: LACTATED RINGERS 1,000 ML IV SCH ×3 (07:19→23:30)
[2018-03-26] MEDS: PANTOPRAZOLE 40 MG VIAL IV SCH (07:19)
[2018-03-26] MEDS: ONDANSETRON 4 MG/2 ML VIAL IV PRN (07:45)
[2018-03-26] MEDS: LIPASE/PROTEASE/AMYLASE 1 CAP CAPSULE PO SCH ×3 (10:33→20:02)
[2018-03-26] MEDS: ENOXAPARIN 40 MG/0.4 ML SYRINGE SQ SCH (10:33)
--- NOTE | 2018-03-26 11:22 | Internal Med Progress Note ---
Medical - PN: Subj Patient information: Note initiated : 03/26/18 at 11:18 am Service Date, if different from initiated Date: [] Patient: Jaleesa Harrison a 47 y/o F admitted on 03/22/18 for Abdominal pain. Chief Complaint: [] Interval history: Ms. Harrison is a 47 year old F with a history of alcohol abuse, alcohol related chronic pancreatitis with several admissions at different hospitals this year, he was admitted here 03/16 and discharged 03/19. Patient states that when she was discharged on Saturday, she was having some pain but it was tolerable and she was able to treated with [place]. Since that time it is worsened each day since discharge. It is up to 9/10 in intensity at times. [place] was barely touching the pain. It is associated with nausea, she' s had no emesis. He is in the epigastrium and left lateral abdomen, some radiation to the back. Timing has been constant, character has been progressive in intensity. She's been unable to take in minimal by mouth intake (had been on clear liquids) however there has been no change in pain with oral intake. She denies any alcohol ingestion since the time of her discharge. I discussed alcohol ingestion she had earlier in February and she verified that which was documented in Dr. Vaz's history and physical from last week, though she wanted to minimize her alcohol intake which occurred on when her father queried her about it. (Her father was in the room during the latter part of my interview, she gave me permission to speak freely in front of him.) Further imaging in the emergency department showed persistent pseudocyst, though they appear to be mildly improved from 03/16. There are still inflammatory changes around the pancreas. Her lipase is elevated at 214, which is higher than it was at her admission last week. She also has mild ascites and recurrent left pleural effusion noted. She is being admitted for further treatment of acute on chronic pancreatitis flare. 03/23 Feeling better, still requiring IV hydromorphone for pain control. Apparently had not picked up Creon from pharmacy after discharge last week. Had not been taking supplements after she was discharged prior to readmit. Currently asking for something to eat, at this point will begin tube feeds, but avoid PO feeding. 03/24 Tolerating tube feeds at initial rate. Tolerating oral Creon. Complains of being hungry wanted to take more by mouth. Still using significant IV opioids for pain control. 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 Discussed with nursing. 03/25-patient doing well. Ongoing tube feeds. Complains of abdominal pain. Overnight significant heartburn responding well to PPI/antacid. Requesting GI eval in light of chronic bronchitis. Patient was due to see Dr. Zayas however due to hospitalization unable to follow-up. GI Dr. Tabor on board. Patient carries a poor prognosis if she continues to drink with recurrent pancreatitis flares. No overnight fever chills. Pain much improved. 03/26-patient doing well. No overnight events. No concerns per staff. Abdominal pain improving. Feels hungry and requesting oral diet. Start oral clears. Tube feeds at 30. No fever chills. Stable hemodynamics. Sats 94% on room air. - Constitutional Vitals: Vital Signs Temp Pulse Resp BP Pulse Ox 97.7 F 59 L 12 149/88 94 03/26/18 07:07 03/26/18 07:07 03/26/18 07:24 03/26/18 07:24 03/26/18 07:07 Period Temp Pulse Resp BP Sys/Castaneda Pulse Ox Last 24 Hr 97.1 F-99.4 F 54-71 - 145-166/78-88 93-94 Intake and Output 03/25/18 03/26/18 03/26/18 21:59 05:59 13:59 Intake Total 1054 / 1054 2191 / 2191 1000 / 1000 Output Total 900 / 900 1250 / 1250 950 / 950 Balance 154 / 154 941 / 941 50 / 50 Weight 106 lb 8 oz Intake & Output: Intake & Output 03/25/18 03/26/18 03/26/18 21:59 05:59 13:59 Intake Total 1054 / 1054 2191 / 2191 1000 / 1000 Output Total 900 / 900 1250 / 1250 950 / 950 Balance 154 / 154 941 / 941 50 / 50 Weight 106 lb 8 oz Intake: IV 994 / 994 994 / 994 1000 / 1000 Lactated Ringers 1,000 ml @ 125 994 / 994 994 / 994 1000 / 1000 mls/hr IV .Q8H [facility] Rx#: [id number] Oral 360 / 360 Tube Feeding 777 / 777 GI Tube Flush 60 / 60 60 / 60 Output: Void Amount 900 / 900 1250 / 1250 950 / 950 Other: Urine Appearance Clear Clear Clear Urine Color Bright Yellow Pale Pale Stool Size Small Stool Color Brown Stool Consistency Soft Formed # Voids 1 General appearance: no acute distress Exam: Alert oriented Nonlabored breathing Tube feed via G-tube Appears anxious Medical - PN: Obj Da - Labs CBC & Chem 7: 03/25/18 14:25 03/25/18 14:25 Labs: Abnormal Lab Results 03/25/18 03/25/18 03/24/18 14:25 14:25 04:30 RBC 3.35 L Hgb 10.6 L Hct 32.1 L RDW 16.1 H Plt Count 499 H Carbon Dioxide 31 H BUN 3 L 4 L Creatinine 0.4 L 0.4 L Glucose 109 H GGT 55 H Alkaline Phosphatase 131 H Lactate Dehydrogenase 401 H C-Reactive Protein 0.9 H Total Protein 5.7 L Albumin 2.7 L 2.4 L Albumin/Globulin Ratio 0.8 L 0.7 L Lipase 82 H 03/24/18 04:30 RBC 3.40 L Hgb 10.7 L Hct 33.0 L RDW 15.8 H Plt Count Carbon Dioxide BUN Creatinine Glucose GGT Alkaline Phosphatase Lactate Dehydrogenase C-Reactive Protein Total Protein Albumin Albumin/Globulin Ratio Lipase Meds: Medications Acetaminophen (Tylenol) 650 mg PO Q6HP PRN PRN Reason: PAIN/FEVER > 101 Lipase/Protease/Amylase (Creon) 1 cap PO TID [facility] Last Admin: 03/26/18 10:33 Dose: 1 cap Enoxaparin Sodium (Lovenox) 40 mg SQ DAILY [facility] Last Admin: 03/26/18 10:33 Dose: 40 mg Fluoxetine HCl (Prozac) 60 mg PO HS [facility] Last Admin: 03/25/18 19:59 Dose: 60 mg Hydromorphone HCl (Dilaudid) 2 mg PO Q4HP PRN PRN Reason: PAIN LEVEL 3-6 Last Admin: 03/26/18 07:37 Dose: 2 mg Lactated Ringer's (Lactated Ringers) 1,000 mls @ 125 mls/hr IV .Q8H [facility] Last Admin: 03/26/18 07:19 Dose: 125 mls/hr Ondansetron HCl (Zofran) 4 mg IV Q6HP PRN PRN Reason: Nausea And Vomiting Last Admin: 03/26/18 07:45 Dose: 4 mg Pantoprazole Sodium (Protonix) 40 mg IV QAMAC [facility] Last Admin: 03/26/18 07:19 Dose: 40 mg Sodium Chloride (Saline Flush) 10 ml IV Q8 [facility] Last Admin: 03/26/18 05:15 Dose: Not Given Medical - PN: A/P - Time Spent With Patient Total time spent is greater than 50% in coordination of care (as documented) at patient's floor/unit and/or counseling patient: 15 - 24 minutes (1) Acute on chronic pancreatitis Status: Acute Assessment and plan: 47-year-old female with history of chronic pancreatitis presents with worsening abdominal pain over the last 3 days following discharge from this facility for acute on chronic pancreatitis flare. * Acute on chronic pancreatitis. Clinically improving with downtrending lipase and improved symptoms. Continue Creon. Original flare, suspect to be related to alcohol ingestion February. Interval abdominal imaging revealed pseudocyst which improved from previous imaging. Start oral clears * Left pleural effusion. Elevated amylase on pleural fluid suggestive of pancreatitis associated effusion. Stable * Alcohol abuse no withdrawals noted * Abdominal pain-discontinued IV opioids currently well controlled on oral opioids. Plan * Start oral clears * Enteral feeding as adjunct * Pain management on oral opioids * Outpatient GI referral on discharge likely in 24-48 hours if clinically continues to improve Current Visit: Yes Medical - PN: Qual - VTE Deep Vein Thrombosis/Pulmonary Embolism Present on Admission: No
[2018-03-26 16:30] LABS: Basophils # (Auto) 0.1 K/mcL (0.0-0.3); Basophils % (Auto) 0.8 % (0.0-2.0); Eosinophils # (Auto) 0.1 K/mcL (0.0-0.7); Lymphocytes # (Auto) 1.5 K/mcL (1.5-4.8); Mean Corpuscular HGB Conc 32.6 g/dL (31.0-36.0); Mean Corpuscular Hemoglobin 31.3 pg (26.0-34.0); Monocytes # (Auto) 0.6 K/mcL (0.1-0.9); Monocytes % (Auto) 8.2 % (1.0-12.0); Platelet Count 569 K/mcL (140-440); RBC 3.61 M/mcL (4.00-5.20); Red Cell Distribution Width 16.5 % (11.5-14.5)
[2018-03-26] MEDS: FLUoxetine HCL 20 MG CAPSULE PO SCH (20:02)
[2018-03-26] MEDS: ACETAMINOPHEN 325 MG TABLET PO PRN (20:04)
[2018-03-27] MEDS: HYDROmorphone 2 MG TABLET PO PRN ×3 (00:12→08:24)
[2018-03-27] MEDS: ACETAMINOPHEN 325 MG TABLET PO PRN (04:03)
[2018-03-27] MEDS: 0.9 % SODIUM CHLORIDE 10 ML SYRINGE IV SCH ×3 (05:16→20:56)
[2018-03-27 06:02] LABS: Basophils # (Auto) 0 K/mcL (0.0-0.3); Basophils % (Auto) 0.7 % (0.0-2.0); Eosinophils # (Auto) 0.2 K/mcL (0.0-0.7); Eosinophils % (Auto) 2.2 % (0.0-7.0); Granulocytes % (Auto) 67.6 % (38.0-78.0); Lymphocytes # (Auto) 1.4 K/mcL (1.5-4.8); Lymphocytes % (Auto) 19.8 % (15.5-49.0); Mean Cell Volume 96.2 fL (80.0-100.0); Mean Corpuscular HGB Conc 32.4 g/dL (31.0-36.0); Mean Corpuscular Hemoglobin 31.2 pg (26.0-34.0); Monocytes # (Auto) 0.7 K/mcL (0.1-0.9); Monocytes % (Auto) 9.7 % (1.0-12.0); Platelet Count 518 K/mcL (140-440); RBC 3.71 M/mcL (4.00-5.20); Red Cell Distribution Width 16.4 % (11.5-14.5)
[2018-03-27 06:29] LABS: ALT/SGPT 8 U/l (0-40); Albumin 2.8 gm/dL (3.2-5.2); Albumin/Globulin Ratio 0.8 (1.0-2.3); Alkaline Phosphatase 136 U/L (39-117); Bilirubin,Direct < 0.2 mg/dL (0.0-0.3); Blood Urea Nitrogen 3 mg/dl (6-20); Gamma Glutamyl Transpeptidase 65 U/L (5-36); Uric Acid 1.6 mg/dL (2.5-8.0)
[2018-03-27] MEDS: PANTOPRAZOLE 40 MG VIAL IV SCH (07:02)
[2018-03-27] MEDS: LACTATED RINGERS 1,000 ML IV SCH ×2 (07:30→16:57)
[2018-03-27] MEDS: LIPASE/PROTEASE/AMYLASE 1 CAP CAPSULE PO SCH ×3 (08:24→20:55)
[2018-03-27] MEDS: ENOXAPARIN 40 MG/0.4 ML SYRINGE SQ SCH (08:25)
[2018-03-27] MEDS: ONDANSETRON 4 MG/2 ML VIAL IV PRN ×2 (09:09→21:14)
[2018-03-27] MEDS ORDERED: MAGNESIUM SULFATE 2 GM/50 ML BAG IV ONE (10:00)
[2018-03-27] MEDS: oxyCODONE/APAP 5/325MG TABLET PO PRN ×4 (11:09→22:55)
--- NOTE | 2018-03-27 14:17 | Internal Med Progress Note ---
Medical - PN: Subj Patient information: Note initiated : 03/27/18 at 2:14 pm Service Date, if different from initiated Date: [] Patient: Jaleesa Harrison a 47 y/o F admitted on 03/22/18 for Abdominal pain. Chief Complaint: [] Interval history: Ms. Harrison is a 47 year old F with a history of alcohol abuse, alcohol related chronic pancreatitis with several admissions at different hospitals this year, he was admitted here 03/16 and discharged 03/19. Patient states that when she was discharged on Saturday, she was having some pain but it was tolerable and she was able to treated with [place]. Since that time it is worsened each day since discharge. It is up to 9/10 in intensity at times. [place] was barely touching the pain. It is associated with nausea, she' s had no emesis. He is in the epigastrium and left lateral abdomen, some radiation to the back. Timing has been constant, character has been progressive in intensity. She's been unable to take in minimal by mouth intake (had been on clear liquids) however there has been no change in pain with oral intake. She denies any alcohol ingestion since the time of her discharge. I discussed alcohol ingestion she had earlier in February and she verified that which was documented in Dr. Vaz's history and physical from last week, though she wanted to minimize her alcohol intake which occurred on when her father queried her about it. (Her father was in the room during the latter part of my interview, she gave me permission to speak freely in front of him.) Further imaging in the emergency department showed persistent pseudocyst, though they appear to be mildly improved from 03/16. There are still inflammatory changes around the pancreas. Her lipase is elevated at 214, which is higher than it was at her admission last week. She also has mild ascites and recurrent left pleural effusion noted. She is being admitted for further treatment of acute on chronic pancreatitis flare. 03/23 Feeling better, still requiring IV hydromorphone for pain control. Apparently had not picked up Creon from pharmacy after discharge last week. Had not been taking supplements after she was discharged prior to readmit. Currently asking for something to eat, at this point will begin tube feeds, but avoid PO feeding. 03/24 Tolerating tube feeds at initial rate. Tolerating oral Creon. Complains of being hungry wanted to take more by mouth. Still using significant IV opioids for pain control. Encourage the patient next 24 hours as she starts Creon and tube feeds to try to ion exchange operator to oral pain regimen. Discussed with nursing. 03/25-patient doing well. Ongoing tube feeds. Complains of abdominal pain. Overnight significant heartburn responding well to PPI/antacid. Requesting GI eval in light of chronic bronchitis. Patient was due to see Dr. Zayas however due to hospitalization unable to follow-up. GI Dr. Tabor on board. Patient carries a poor prognosis if she continues to drink with recurrent pancreatitis flares. No overnight fever chills. Pain much improved. 03/26-patient doing well. No overnight events. No concerns per staff. Abdominal pain improving. Feels hungry and requesting oral diet. Start oral clears. Tube feeds at 30. No fever chills. Stable hemodynamics. Sats 94% on room air. 03/27-Patient tolerated your diet and advancing to low-fat. Persistent abdominal pain requiring oral opioids. Parents at bedside. No other concerns including fever chills or shortness of breath. Low magnesium replacement. DC Dilaudid - Constitutional Vitals: Vital Signs Temp Pulse Resp BP Pulse Ox 98.3 F 60 16 127/79 95 03/27/18 13:27 03/27/18 13:27 03/27/18 13:27 03/27/18 13:27 03/27/18 13:27 Period Temp Pulse Resp BP Sys/Castaneda Pulse Ox Last 24 Hr 96.5 F-98.3 F 55-61 14-20 127-171/79-85 94-95 Intake and Output 03/27/18 03/27/18 03/27/18 05:59 13:59 21:59 Intake Total 1790 / 1790 1000 / 1000 Output Total 1600 / 1600 1000 / 1000 Balance 190 / 190 0 / 0 Intake & Output: Intake & Output 03/27/18 03/27/18 03/27/18 05:59 13:59 21:59 Intake Total 1790 / 1790 1000 / 1000 Output Total 1600 / 1600 1000 / 1000 Balance 190 / 190 0 / 0 Intake: IV 1000 / 1000 1000 / 1000 Lactated Ringers 1,000 ml @ 125 1000 / 1000 1000 / 1000 mls/hr IV .Q8H [facility] Rx#: [id number] Oral 360 / 360 Tube Feeding 370 / 370 GI Tube Flush 60 / 60 Output: Void Amount 1600 / 1600 1000 / 1000 Other: Meal jello Lunch Percent of Meal Consumed 100% 50% Feeding Ability Independent Independent Urine Appearance Clear Clear Urine Color Pale Pale Urine Odor Normal # Voids 1 General appearance: no acute distress Exam: Alert oriented Nonlabored breathing Nondistended abdomen Minimal anxiety Medical - PN: Obj Da - Labs CBC & Chem 7: 03/27/18 04:44 03/27/18 04:44 Labs: Abnormal Lab Results 03/27/18 03/27/18 03/26/18 04:44 04:44 14:57 RBC 3.71 L 3.61 L Hgb 11.6 L 11.3 L Hct 35.7 L 34.6 L RDW 16.4 H 16.5 H Plt Count 518 H 569 H Lymph # (Auto) 1.4 L Carbon Dioxide BUN 3 L Creatinine 0.3 L Glucose Uric Acid 1.6 L Magnesium 1.5 L GGT 65 H Alkaline Phosphatase 136 H C-Reactive Protein Albumin 2.8 L Albumin/Globulin Ratio 0.8 L 03/25/18 03/25/18 14:25 14:25 RBC 3.35 L Hgb 10.6 L Hct 32.1 L RDW 16.1 H Plt Count 499 H Lymph # (Auto) Carbon Dioxide 31 H BUN 3 L Creatinine 0.4 L Glucose 109 H Uric Acid Magnesium GGT Alkaline Phosphatase 131 H C-Reactive Protein 0.9 H Albumin 2.7 L Albumin/Globulin Ratio 0.8 L Meds: Medications Acetaminophen (Tylenol) 650 mg PO Q6HP PRN PRN Reason: PAIN/FEVER > 101 Last Admin: 03/27/18 04:03 Dose: 650 mg Lipase/Protease/Amylase (Creon) 1 cap PO TID [facility] Last Admin: 03/27/18 08:24 Dose: 1 cap Enoxaparin Sodium (Lovenox) 40 mg SQ DAILY [facility] Last Admin: 03/27/18 08:25 Dose: 40 mg Fluoxetine HCl (Prozac) 60 mg PO HS [facility] Last Admin: 03/26/18 20:02 Dose: 60 mg Lactated Ringer's (Lactated Ringers) 1,000 mls @ 125 mls/hr IV .Q8H [facility] Last Admin: 03/27/18 07:30 Dose: 125 mls/hr Ondansetron HCl (Zofran) 4 mg IV Q6HP PRN PRN Reason: Nausea And Vomiting Last Admin: 03/27/18 09:09 Dose: 4 mg Oxycodone/Acetaminophen (Percocet 5-325 Mg) 0 tab PO Q4-6HP PRN PRN Reason: PAIN LEVEL 3-6 Last Admin: 03/27/18 11:09 Dose: 2 tab Pantoprazole Sodium (Protonix) 40 mg IV QAMAC [facility] Last Admin: 03/27/18 07:02 Dose: 40 mg Sodium Chloride (Saline Flush) 10 ml IV Q8 [facility] Last Admin: 03/27/18 12:53 Dose: Not Given Medical - PN: A/P - Time Spent With Patient Total time spent is greater than 50% in coordination of care (as documented) at patient's floor/unit and/or counseling patient: 25 - 35 minutes (1) Acute on chronic pancreatitis Status: Acute Assessment and plan: 47-year-old female with history of chronic pancreatitis presents with worsening abdominal pain over the last 3 days following discharge from this facility for acute on chronic pancreatitis flare. * Acute on chronic alcoholic pancreatitis. Clinically improving. Continue Creon. Patient counseled to refrain from alcohol. Interval abdominal imaging revealed pseudocyst which improved from previous imaging. Advance to low-fat diet. DC Dilaudid * Low magnesium on replacement * Left pleural effusion. Elevated amylase on pleural fluid suggestive of pancreatitis associated effusion. 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
[2018-03-27] MEDS: FLUoxetine HCL 20 MG CAPSULE PO SCH (20:55)
[2018-03-28] MEDS: LACTATED RINGERS 1,000 ML IV SCH ×4 (02:49→15:08)
[2018-03-28] MEDS: oxyCODONE/APAP 5/325MG TABLET PO PRN ×4 (02:58→15:05)
[2018-03-28] MEDS: ONDANSETRON 4 MG/2 ML VIAL IV PRN (04:15)
[2018-03-28] MEDS: 0.9 % SODIUM CHLORIDE 10 ML SYRINGE IV SCH ×2 (04:44→14:15)
[2018-03-28 05:52] LABS: Basophils # (Auto) 0 K/mcL (0.0-0.3); Eosinophils # (Auto) 0.2 K/mcL (0.0-0.7); Eosinophils % (Auto) 3.7 % (0.0-7.0); Granulocytes % (Auto) 54.9 % (38.0-78.0); Lymphocytes # (Auto) 1.4 K/mcL (1.5-4.8); Lymphocytes % (Auto) 28.4 % (15.5-49.0); Mean Cell Volume 96.1 fL (80.0-100.0); Mean Corpuscular HGB Conc 32.7 g/dL (31.0-36.0); Mean Corpuscular Hemoglobin 31.4 pg (26.0-34.0); Monocytes # (Auto) 0.6 K/mcL (0.1-0.9); Platelet Count 482 K/mcL (140-440); RBC 3.39 M/mcL (4.00-5.20); Red Cell Distribution Width 16.8 % (11.5-14.5)
[2018-03-28 06:14] LABS: ALT/SGPT 8 U/l (0-40); Albumin 2.7 gm/dL (3.2-5.2); Albumin/Globulin Ratio 0.8 (1.0-2.3); Alkaline Phosphatase 116 U/L (39-117); Bilirubin,Direct < 0.2 mg/dL (0.0-0.3); Blood Urea Nitrogen 8 mg/dl (6-20); Gamma Glutamyl Transpeptidase 53 U/L (5-36); Uric Acid 1.9 mg/dL (2.5-8.0)
[2018-03-28] MEDS: PANTOPRAZOLE 40 MG VIAL IV SCH (07:04)
[2018-03-28] MEDS: LIPASE/PROTEASE/AMYLASE 1 CAP CAPSULE PO SCH ×2 (08:19→15:07)
[2018-03-28] MEDS: ENOXAPARIN 40 MG/0.4 ML SYRINGE SQ SCH (08:19)
--- NOTE | 2018-03-28 14:07 | Discharge Summary ---
Medical - DS: Prov Patient information: Note initiated : 03/28/18 at 2:04 pm Service Date, if different from initiated Date: [] Patient: Jaleesa Harrison 47 y/o F admitted on 03/22/18 for Abdominal pain. Chief Complaint: [] Date of admission: 03/22/18 15:14 Discharge date: 03/28/18 Primary care physician: Jenn Smith Consults: 03/22/18 Consult to Physician [CONS] Stat Comment: Consulting Provider: Cristobal Keita Reason For Exam: Physician to Consult Consult to Physician [CONS] Stat Comment: Consulting Provider: Lata Carter Reason For Exam: Physician to Consult Medical - DS: Meds - Discharge Medications Active and Home Medications: Home Medications FLUoxetine HCL [Prozac] 60 mg PO HS 03/16/18 [History Confirmed 03/22/18 Last Taken 03/15/18] HYDROcodone/ACETAMINOPHEN [Smilax 5-325 Tablet] 1 each PO Q4HP PRN #30 tab [Rx Confirmed 03/22/18 Last Taken 03/22/18] Lipase/Protease/Amylase [Pancrejulian Shoemaker 21,000 Unit Cap] 1 each PO AC #90 capsule. 03/18/18 [Rx Confirmed 03/22/18 Last Taken Unknown] Benzonatate [Tessalon Perle] 100 mg PO TIDP PRN #30 cap 03/19/18 [Rx Confirmed 03/22/18 Last Taken Unknown] Ondansetron HCl [Zofran ODT] 4 mg SL Q4HP PRN #40 tab 03/19/18 [Rx Confirmed 05/09 Last Taken 03/22/18] Medical - DS: Hosp Hospital course: Discharge diagnosis * Acute on chronic alcoholic pancreatitis. Clinically back to baseline. Continue Creon/J-tube feeding. Recommend low-fat diet and refraining from alcohol to prevent future episodes of pancreatitis. * Low magnesium resolved with replacement * Left pleural effusion. Elevated amylase on pleural fluid suggestive of pancreatitis associated effusion. Clinically improved post thoracentesis in stable without any evidence of respiratory distress * Alcohol abuse no withdrawals noted. Recommend abstinence from alcohol to prevent future episodes of pancreatitis * Enteral nutrition via PEG tube -continue tube feeds at home * Abdominal pain-resolved. Continue opioids at home dose Brief hospital course Ms. Harrison is a 47 year old F with a history of alcohol abuse, alcohol related chronic pancreatitis with several admissions at different hospitals this year, he was admitted here 03/16 and discharged 03/19. Patient states that when she was discharged on Saturday, she was having some pain but it was tolerable and she was able to treated with Smilax. Since that time it is worsened each day since discharge. It is up to 9/10 in intensity at times. Smilax was barely touching the pain. It is associated with nausea, she' s had no emesis. He is in the epigastrium and left lateral abdomen, some radiation to the back. Timing has been constant, character has been progressive in intensity. She's been unable to take in minimal by mouth intake (had been on clear liquids) however there has been no change in pain with oral intake. She denies any alcohol ingestion since the time of her discharge. I discussed alcohol ingestion she had earlier in February and she verified that which was documented in Dr. Vaz's history and physical from last week, though she wanted to minimize her alcohol intake which occurred on when her father queried her about it. (Her father was in the room during the latter part of my interview, she gave me permission to speak freely in front of him.) Further imaging in the emergency department showed persistent pseudocyst, though they appear to be mildly improved from 03/16. There are still inflammatory changes around the pancreas. Her lipase is elevated at 214, which is higher than it was at her admission last week. She also has mild ascites and recurrent left pleural effusion noted. She is being admitted for further treatment of acute on chronic pancreatitis flare. 03/23 Feeling better, still requiring IV hydromorphone for pain control. Apparently had not picked up Creon from pharmacy after discharge last week. Had not been taking supplements after she was discharged prior to readmit. Currently asking for something to eat, at this point will begin tube feeds, but avoid PO feeding. 03/24 Tolerating tube feeds at initial rate. Tolerating oral Creon. Complains of being hungry wanted to take more by mouth. Still using significant IV opioids for pain control. Encourage the patient next 24 hours as she starts Creon and tube feeds to try to currency exchange specialist to oral pain regimen. Discussed with nursing. 03/25-patient doing well. Ongoing tube feeds. Complains of abdominal pain. Overnight significant heartburn responding well to PPI/antacid. Requesting GI eval in light of chronic bronchitis. Patient was due to see Dr. Zayas however due to hospitalization unable to follow-up. GI Dr. Tabor on board. Patient carries a poor prognosis if she continues to drink with recurrent pancreatitis flares. No overnight fever chills. Pain much improved. 03/26-patient doing well. No overnight events. No concerns per staff. Abdominal pain improving. Feels hungry and requesting oral diet. Start oral clears. Tube feeds at 30. No fever chills. Stable hemodynamics. Sats 94% on room air. 03/27-Patient tolerated your diet and advancing to low-fat. Persistent abdominal pain requiring oral opioids. Parents at bedside. No other concerns including fever chills or shortness of breath. Low magnesium replacement. DC Dilaudid 03/28-doing well. Ambulating. No significant pain. Tolerating low-fat diet p.o./adjunctive tube feeds. Patient counseled aggressively on abstinence from alcohol. Feels back at baseline. Discharging today. Recommend follow-up with GI as outpatient. Discharge diagnosis: . - Time Spent with Patient Total time spent providing and/or coordinating discharge services: Greater than 30 minutes Medical - DS: Exam - Constitutional Vitals: Vital Signs Temp Pulse Resp BP Pulse Ox 03/28/18 11:33 98.7 F 14 132/77 95 03/28/18 06:39 98.8 F 14 152/83 95 03/28/18 03:07 98.4 F 59 L 14 167/78 95 03/27/18 23:27 97.6 F 61 16 146/86 94 03/27/18 20:00 98.1 F 64 18 149/82 95 03/27/18 16:00 97.1 F 65 17 145/81 95 Intake and Output 03/28/18 03/28/18 03/28/18 05:59 13:59 21:59 Intake Total 1830 / 1830 1300 / 1300 Output Total 1150 / 1150 700 / 700 Balance 680 / 680 600 / 600 Intake: IV 1000 / 1000 1000 / 1000 Lactated Ringers 1,000 ml @ 125 1000 / 1000 1000 / 1000 mls/hr IV .Q8H [facility] Rx#: [id number] Oral 470 / 470 240 / 240 Tube Feeding 300 / 300 GI Tube Flush 60 / 60 60 / 60 Output: Void Amount 1150 / 1150 700 / 700 Other: Meal Soup Breakfast Percent of Meal Consumed 100% 50% Feeding Ability Independent Independent Urine Appearance Clear Urine Color Pale Urine Odor Normal Weight 104 lb 8 oz Patient Weight 03/29/18 05:59 Weight 104 lb 8 oz Medical - DS: Data Labs on day of discharge: Labs from last 24 hours 03/28/18 03/28/18 04:48 04:48 WBC 4.9 RBC 3.39 L Hgb 10.6 L Hct 32.6 L MCV 96.1 MCH 31.4 MCHC 32.7 RDW 16.8 H Plt Count 482 H MPV 9.1 Gran % 54.9 Lymph % (Auto) 28.4 [place] % (Auto) 12.0 Eos % (Auto) 3.7 Baso % (Auto) 1.0 Gran # 2.7 Lymph # (Auto) 1.4 L [place] # (Auto) 0.6 Eos # (Auto) 0.2 Baso # (Auto) 0 Sodium 138 Potassium 4.4 Chloride 101 Carbon Dioxide 28 Anion Gap 9.0 BUN 8 Creatinine 0.3 L GFR Calculation 136 Glucose 102 Uric Acid 1.9 L Calcium 8.8 Phosphorus 3.7 Magnesium 1.8 Total Bilirubin 0.3 Direct Bilirubin < 0.2 GGT 53 H AST 12 ALT 8 Alkaline Phosphatase 116 Lactate Dehydrogenase 166 Total Protein 6.0 Albumin 2.7 L Globulin 3.3 Albumin/Globulin Ratio 0.8 L Triglycerides 65 Medical - DS: A/P - Patient/Caregiver Discharge Instructions Activity: increase activity as tolerated Diet: Low Fat Additional Instructions: Recommend follow-up with GI in 2 weeks for chronic pancreatic management Follow-up PCP in 1 week Refrain from alcohol use to prevent future episodes of pancreatitis Continue G-tube care as before Return to ER if worsening abdominal pain nausea fever chills noted - Problem Maintenance (1) Acute on chronic pancreatitis Status: Acute - Follow up Plan Follow up with: Jenn Smith ARNP [Primary Care Provider] - Disposition: Home, Self-Care Prognosis: Good Rehab Potential: Fair I certify that the patient requires SNF services: No Overall status at discharge: patient is back to baseline Medical - DS: Qual - VTE Deep Vein Thrombosis/Pulmonary Embolism Present on Admission: No
== END 2018-03-28 16:45 | disposition home or self-care (01) | DRG 439 ==
LOC: ED 10:04 → MEDSUR 15:14
PROVIDERS: ADMIT Internal Medicine; ATTEND Internal Medicine
CPT/HCPCS: 80047; 85014; 90732; J1170; J1650; J1885; J2405; J3475; J7030; J7120; Q9967

== ENCOUNTER 2018-04-12 02:22 | Inpatient (IN) ==
[2018-04-12] MEDS ORDERED: IOPAMIDOL 100 ML BOTTLE IV ONE (02:23)
[2018-04-12] MEDS ORDERED: 0.9 % SODIUM CHLORIDE 1,000 ML IV ONE ×2 (02:38→02:49)
[2018-04-12] MEDS ORDERED: LACTATED RINGERS 1,000 ML IV ONE (02:49)
[2018-04-12] MEDS ORDERED: PANTOPRAZOLE 40 MG VIAL IV ONE (02:49)
[2018-04-12] MEDS ORDERED: ONDANSETRON 4 MG/2 ML VIAL IV ONE (02:49)
[2018-04-12] MEDS ORDERED: KETOROLAC 15 MG/ML VIAL IV ONE (02:52)
[2018-04-12] MEDS ORDERED: PROMETHAZINE 25 MG/ML VIAL IV ONE (02:52)
--- NOTE | 2018-04-12 02:56 | Emergency Department Note ---
Abdominal Pain HPI - General Chief Complaint: Flank Pain Stated Complaint: Flank pain Time Seen by Provider: 04/12/18 02:27 Source: patient Mode of arrival: ambulatory Limitations: no limitations - History of Present Illness HPI Narrative: Patient has a significant history of recurrent pancreatitis and pancreatic pseudocyst. Recently admitted to Hospital, started on tube feeds and her abdominal pain returned back to baseline, discharge Hospital on the seventh. She has done well up until yesterday started developing abdominal pain in the left upper quadrant the abdomen, left mid quadrant of the abdomen, also radiating through to the back. Previously had pleural effusion thought to be related to flare up of her pancreatitis and had thoracentesis done. Discharge home last visit, she is currently on hydrocodone at home for her chronic abdominal pain and chronic pancreatitis, also history o alcohol use in the past , denies recent alcohol, states she is drinking some tea, denies nausea vomiting , has been eating, occasional constipation, occasional diarrhea denies bloody stools denies fever or chills, no chest pain, smoker but denies marijuana use. No fevers chills, no trauma. He drives herself to the emergency department MD Complaint: abdominal pain - Related Data Home Medications Medication Instructions Recorded Confirmed FLUoxetine HCL [Prozac] 60 mg PO HS 03/16/18 03/22/18 Previous Rx's Medication Instructions Recorded HYDROcodone/ACETAMINOPHEN [[place] 1 each PO Q4HP PRN #30 tab 03/18/18 5-325 Tablet] Lipase/Protease/Amylase [Pancreaze 1 each PO AC #90 capsule. 03/18/18 21,000 Unit Cap] Benzonatate [Tessalon Perle] 100 mg PO TIDP PRN #30 cap 03/19/18 Ondansetron HCl [Zofran ODT] 4 mg SL Q4HP PRN #40 tab 03/19/18 Allergies Allergy/AdvReac Type Severity Reaction Status Date / Time morphine Allergy Mild Itching Verified 03/22/18 10:04 Review of Systems All systems ED: reviewed and negative except as stated. Constitutional: Denies: fever, chills Respiratory: Denies: shortness of breath Musculoskeletal: Reports: back pain Abdominal Pain PMH - Past Medical History Attestation: Yes: The following information was validated with the patient. Medical history: Reports: asthma, COPD, GERD (Peptic ulcer disease), liver disease, other (Cirrhosis, pancreatitis with pseudocysts) Surgical history ED: Reports: other Psychiatric history: Reports: anxiety, depression Family history: Reports: no significant family history - Social History Smoking status: Current every day smoker Alcohol use: Reports: Rarely, Occasionally, Recent Drug use: Reports: none Physical Exam Limitations: no limitations General appearance: alert, in distress Head: atraumatic, normocephalic Eye: Present: normal appearance, PERRL, EOMI ENT: normal exam, normal oropharynx, mucous membranes moist, TM's normal bilaterally, other (edentulous upper and lower) Neck: Present: normal inspection, full ROM, trachea midline Chest: Present: normal inspection, symmetric chest wall rise. Absent: tenderness Respiratory: Present: normal lung sounds bilaterally. Absent: respiratory distress, rales/crackles, wheezes, accessory muscle use Cardiovascular: Present: regular rate, normal rhythm Abdominal: Present: tenderness, guarding, rebound, diminished bowel sounds. Absent: distention Abdominal tenderness: Present: LUQ, LLQ, epigastrium, moderate Extremities: Present: normal inspection, full ROM, normal capillary refill. Absent: tenderness Back: Present: normal inspection. Absent: CVA tenderness (R), CVA tenderness (L ) Neurological: Present: alert, oriented X3, CN II-XII intact. Absent: motor sensory deficit Psychiatric: Present: depressed, anxious Skin: Present: warm, dry, intact. Absent: cyanosis Course - Reevaluation(s) Reevaluation #1: Labs reviewed. I spoke with Dr. Huff, he recommended consultation with GI, did talk with Dr. Delgado. He does not have anything to offer Crow drainage procedure here, he recommended consultation with [place]. He states they occasionally drain the pseudocysts with ultrasound guidance through the endoscope. We will contact [facility] to see if they will accept the patient. At this point labs reviewed, her lipase is elevated to 700, consistent with diagnosis of acute pancreatitis, acute on chronic. Repeat CT scan of the abdomen not showing any new changes as well as the pancreas is concerned, actually slight improvement of the current system. Vital Signs Temperature 98.0 F 04/12/18 02:23 Pulse Rate 96 H 04/12/18 02:23 Respiratory Rate 19 04/12/18 02:23 Blood Pressure 171/116 04/12/18 02:23 Pulse Oximetry (%) 99 04/12/18 02:23 Temperature 98.0 F 04/12/18 02:23 Pulse Rate 66 04/12/18 08:01 Respiratory Rate 19 04/12/18 02:23 Blood Pressure 151/93 04/12/18 08:01 Pulse Oximetry (%) 99 04/12/18 08:01 Abdominal Pain - MDM Narrative Medical decision making narrative: Impression is acute on chronic pancreatitis. History of recurrent pancreatitis , 3 episodes now in less than a month. Plan is to transfer to [place] if they have a drainage procedure they can offer or treatment they can offer for the pancreatic pseudocyst. I did speak with Dr. Escamilla, she did recommend outpatient follow-up with [facility], , phone number [phone]. She did not recommend transfer or hospitalization in [place] for the acute flare of pancreatitis. On the CT scan her pancreatic pseudocyst is actually improved. Plan is hospital admission here at this facility for flareup of acute pancreatitis. Dr. Macias was paged. - Lab Data Result diagrams: 04/12/18 03:03 04/12/18 03:03 Lab Results 04/12/18 04/12/18 04/12/18 Range/Units 03:03 03:03 03:03 WBC 9.0 (4.5-11.0) K/mcL RBC 4.12 (4.00-5.20) M/mcL Hgb 12.7 (12.0-15.0) g/dL Hct 39.1 (36.0-48.0) % MCV 95.0 (80.0-100.0) fL MCH 30.9 (26.0-34.0) pg MCHC 32.6 (31.0-36.0) g/dL RDW 16.3 H (11.5-14.5) % Plt Count 369 (140-440) K/mcL MPV 8.9 (7.4-10.4) fL Gran % 61.8 (38.0-78.0) % Lymph % (Auto) 25.5 (15.5-49.0) % Gray % (Auto) 7.7 (1.0-12.0) % Eos % (Auto) 4.4 (0.0-7.0) % Baso % (Auto) 0.6 (0.0-2.0) % Gran # 5.6 (1.8-8.0) K/mcL Lymph # (Auto) 2.3 (1.5-4.8) K/mcL Gray # (Auto) 0.7 (0.1-0.9) K/mcL Eos # (Auto) 0.4 (0.0-0.7) K/mcL Baso # (Auto) 0.1 (0.0-0.3) K/mcL PT 13.4 (11.9-14.5) sec INR 1.0 (0.9-1.1) Sodium 135 (133-145) mmol/L Potassium 3.9 (3.3-5.1) mmol/L Chloride 97 (96-108) mmol/L Carbon Dioxide 28 (22-30) mmol/L Anion Gap 10.0 (8-16) BUN 9 (6-20) mg/dl Creatinine 0.4 L (0.6-1.1) mg/dl GFR Calculation 124 Glucose 115 H (70-105) mg/dL Calcium 8.9 (8.6-10.4) mg/dl Total Bilirubin 0.4 (0.0-1.0) mg/dL AST 23 (0-37) U/l ALT 21 (0-40) U/l Alkaline Phosphatase 120 H (39-117) U/L Total Protein 7.0 (5.9-8.4) gm/dL Albumin 3.5 (3.2-5.2) gm/dL Globulin 3.5 (2.2-3.7) gm/dL Albumin/Globulin Ratio 1.0 (1.0-2.3) Amylase 457 H (28-100) U/L Lipase 794 H (7-60) U/L Urine Color Urine Appearance Urine pH (5.0-9.0) Ur Specific [place] (1.000-1.035) Urine Protein (NEG) mg/dL Urine Glucose (UA) (NEG) mg/dL Urine Ketones (NEG) mg/dL Urine Occult Blood (<0.03) mg/dL Urine Nitrate (NEG) Urine Bilirubin (NEG) mg/dL Urine Urobilinogen (NEG) mg/dL Ur Leukocyte Esterase (NEG) /uL Urine RBC (0-1) /hpf Urine WBC (0-4) /hpf Ur Squamous Epith Cells (0-4) /hpf Ur Transition Epith Cell (0-2) /hpf Calcium Oxalate Crystal (0) /hpf Urine Bacteria (0) /hpf Hyaline Casts (0-2) /lpf Urine Mucus (0) /hpf Ur Culture Indicated? Urine Opiates Screen (NONDETECTED) Ur Opiates Confirm Ur Oxycodone Screen (NONDETECTED) Urine Methadone Screen (NONDETECTED) Ur Methadone Confirm Ur Barbiturates Screen (NONDETECTED) Ur Barbiturate Confirm Ur Phencyclidine Scrn (NONDETECTED) Urine PCP Confirm Ur Amphetamines Screen (NONDETECTED) U Benzodiazepines Scrn (NONDETECTED) U Benzodiazepine Confm Urine Cocaine Screen (NONDETECTED) Urine Cocaine Confirm U Cannabinoids Confirm U Marijuana (THC) Screen (NONDETECTED) Urine Alcohol (NONDETECTED) 04/12/18 04/12/18 Range/Units 03:40 03:40 WBC (4.5-11.0) K/mcL RBC (4.00-5.20) M/mcL Hgb (12.0-15.0) g/dL Hct (36.0-48.0) % MCV (80.0-100.0) fL MCH (26.0-34.0) pg MCHC (31.0-36.0) g/dL RDW (11.5-14.5) % Plt Count (140-440) K/mcL MPV (7.4-10.4) fL Gran % (38.0-78.0) % Lymph % (Auto) (15.5-49.0) % Gray % (Auto) (1.0-12.0) % Eos % (Auto) (0.0-7.0) % Baso % (Auto) (0.0-2.0) % Gran # (1.8-8.0) K/mcL Lymph # (Auto) (1.5-4.8) K/mcL Gray # (Auto) (0.1-0.9) K/mcL Eos # (Auto) (0.0-0.7) K/mcL Baso # (Auto) (0.0-0.3) K/mcL PT (11.9-14.5) sec INR (0.9-1.1) Sodium (133-145) mmol/L Potassium (3.3-5.1) mmol/L Chloride (96-108) mmol/L Carbon Dioxide (22-30) mmol/L Anion Gap (8-16) BUN (6-20) mg/dl Creatinine (0.6-1.1) mg/dl GFR Calculation Glucose (70-105) mg/dL Calcium (8.6-10.4) mg/dl Total Bilirubin (0.0-1.0) mg/dL AST (0-37) U/l ALT (0-40) U/l Alkaline Phosphatase (39-117) U/L Total Protein (5.9-8.4) gm/dL Albumin (3.2-5.2) gm/dL Globulin (2.2-3.7) gm/dL Albumin/Globulin Ratio (1.0-2.3) Amylase (28-100) U/L Lipase (7-60) U/L Urine Color Yellow Urine Appearance Hazy Urine pH 5.0 (5.0-9.0) Ur Specific [place] 1.028 (1.000-1.035) Urine Protein 30 A (NEG) mg/dL Urine Glucose (UA) Negative (NEG) mg/dL Urine Ketones Neg (NEG) mg/dL Urine Occult Blood >=1.0 A (<0.03) mg/dL Urine Nitrate Neg (NEG) Urine Bilirubin Neg (NEG) mg/dL Urine Urobilinogen 2.0 A (NEG) mg/dL Ur Leukocyte Esterase Neg (NEG) /uL Urine RBC 2 H (0-1) /hpf Urine WBC 3 (0-4) /hpf Ur Squamous Epith Cells 6 H (0-4) /hpf Ur Transition Epith Cell < 1 (0-2) /hpf Calcium Oxalate Crystal Many A (0) /hpf Urine Bacteria 0 (0) /hpf Hyaline Casts 4 H (0-2) /lpf Urine Mucus Many A (0) /hpf Ur Culture Indicated? No Urine Opiates Screen Suspect positive A (NONDETECTED) Ur Opiates Confirm Not Reportable Ur Oxycodone Screen None detected (NONDETECTED) Urine Methadone Screen None detected (NONDETECTED) Ur Methadone Confirm Not Reportable Ur Barbiturates Screen None detected (NONDETECTED) Ur Barbiturate Confirm Not Reportable Ur Phencyclidine Scrn None detected (NONDETECTED) Urine PCP Confirm Not Reportable Ur Amphetamines Screen None detected (NONDETECTED) U Benzodiazepines Scrn None detected (NONDETECTED) U Benzodiazepine Confm Not Reportable Urine Cocaine Screen None detected (NONDETECTED) Urine Cocaine Confirm Not Reportable U Cannabinoids Confirm Not Reportable U Marijuana (THC) Screen None detected (NONDETECTED) Urine Alcohol None detected (NONDETECTED) Disposition Pt seen by [facility]/PA only: No Clinical Impression: Pancreatitis, Acute on chronic pancreatitis Disposition: Xfer As Inpt ([facility]) Condition: Fair Referrals: Jenn Smith ARNP [Primary Care Provider] -
[2018-04-12] MEDS: HYDROmorphone 2 MG/ML VIAL IV PRN ×12 (03:12→23:35)
[2018-04-12 03:49] LABS: Basophils # (Auto) 0.1 K/mcL (0.0-0.3); Basophils % (Auto) 0.6 % (0.0-2.0); Eosinophils # (Auto) 0.4 K/mcL (0.0-0.7); Eosinophils % (Auto) 4.4 % (0.0-7.0); Granulocytes % (Auto) 61.8 % (38.0-78.0); Lymphocytes # (Auto) 2.3 K/mcL (1.5-4.8); Lymphocytes % (Auto) 25.5 % (15.5-49.0); Mean Corpuscular HGB Conc 32.6 g/dL (31.0-36.0); Monocytes # (Auto) 0.7 K/mcL (0.1-0.9); Monocytes % (Auto) 7.7 % (1.0-12.0); Platelet Count 369 K/mcL (140-440); RBC 4.12 M/mcL (4.00-5.20); Red Cell Distribution Width 16.3 % (11.5-14.5)
[2018-04-12 04:11] LABS: ALT/SGPT 21 U/l (0-40); Albumin 3.5 gm/dL (3.2-5.2); Alkaline Phosphatase 120 U/L (39-117); Amylase 457 U/L (28-100); Blood Urea Nitrogen 9 mg/dl (6-20)
[2018-04-12 04:17] LABS: Lipase 794 U/L (7-60)
[2018-04-12 05:27] LABS: Appearance,Urine HAZY; Bacteria,Urine 0 /hpf (0); Bilirubin,Urine NEG (NEG); Calcium Oxalate Crystals,Urine MANY /hpf (0); Color,Urine YELLOW; Glucose,Urine (UA) NEGATIVE (NEG); Leukocyte Esterase,Urine NEG /uL (NEG); Mucus,Urine MANY /hpf (0); Protein,Urine 30 mg/dL (NEG); Specific Gravity,Urine 1.028 (1.000-1.035); Urine Blood >=1.0 mg/dL (<0.03); Urine Hyaline Cast 4 /lpf (0-2); Urine RBC 2 /hpf (0-1); Urine Squamous Epithelial Cell 6 /hpf (0-4); Urine Transitional Epi Cells < 1 /hpf (0-2); Urine WBC 3 /hpf (0-4)
[2018-04-12 05:34] LABS: Amphetamine Screen,Urine NONE DETECTED (NONDETECTED); Benzodiazepines Screen,Urine NONE DETECTED (NONDETECTED); Cocaine Screen,Urine NONE DETECTED (NONDETECTED); Opiate Screen,Urine SUSPECT POSITIVE (NONDETECTED); Oxycodone, Urine Screen NONE DETECTED (NONDETECTED)
--- NOTE | 2018-04-12 06:33 | XRay Report ---
INDICATION: History of pancreatitis and left pleural effusion TECHNIQUE: PA chest x-ray, COMPARISON: Previous chest x-rays dated 03/22/2018 and 03/17/2018 FINDINGS:Mild residual or recurrent infiltrate at the left lung base. Chest x-ray is significantly improved since 03/22/2018. No focal right lung infiltrate. Heart size and vascularity are normal. [place] and mediastinum are negative. No significant pleural effusion identified on PA projection. Heart size and vascularity are normal. [place] and mediastinum are negative. Continued follow up radiograph recommended IMPRESSION: 1. Mild residual or recurrent left basilar infiltrate. Continued follow-up recommended 2. Negative right lung. Interpreted and Authenticated by: Ernesto Man 04/12/18
--- NOTE | 2018-04-12 07:19 | Cat Scan Report ---
CLINICAL INFORMATION: History of pancreatitis. Left lower quadrant pain. COMPARISON: Previous CT scans dated 03/22/2018 and 03/16/2018. Previous MRI dated 03/17/2018 TECHNIQUE: Axial images were obtained through the abdomen and pelvis. Sagittally and coronally reformatted images. 70 mL contrast material injected intravenously. Oral contrast material was given FINDINGS: Small left pleural effusion is decreased since previous examinations. There is mild left lower lobe and lingular atelectasis or infiltrate. No pericardial fluid. No right pleural effusion. There is a gastrostomy tube which is unchanged. The catheter is within the gastric lumen and extends to the third portion of the duodenum. Patient has a history of chronic and acute pancreatitis. There is a lesser sac pseudocyst which is slightly decreased in size since previous examinations. This currently measures approximately 3.0 cm maximally. No new intrapancreatic or extrapancreatic pseudocyst identified. There are calcifications within the pancreas. There is mild irregularity of the pancreatic duct. No solid pancreatic mass. There is infiltration of intraperitoneal fat. No significant free fluid within the pelvic cul-de-sac. There is fluid within the left upper quadrant. This is loculated without definite discrete pseudocyst. Previous examination demonstrated a 3 cm subdiaphragmatic left upper quadrant pseudocyst. This is not identified presently. Liver is negative. No focal intrahepatic abnormality. There are surgical clips in the gallbladder fossa. No dilated bile ducts. Spleen is negative. No splenomegaly. Normal enhancement of the splenic and portal veins. The adrenal glands are negative. Kidneys are negative. No solid or cystic mass. No hydronephrosis. No hydroureter. Colon is negative. No diverticulitis. No detectable mass. There is contrast material within the small bowel. No mechanical small bowel obstruction. No retroperitoneal or mesenteric lymphadenopathy. Uterus is retroflexed. There is a left-sided mature cystic teratoma. This is unchanged. Lumbar spine, sacrum, pelvis are negative. Hips are negative. No evidence for avascular necrosis No intra-abdominal abscess. No evidence for pancreatic abscess or necrosis. No pneumoperitoneum. No biliary or portal venous gas. IMPRESSION: 1. Changes consistent with chronic and acute pancreatitis. 2. 3 cm pseudocyst in the lesser sac. This is slightly improved. There is fluid underneath the left hemidiaphragm. This is loculated or septated but the discrete 3 cm subdiaphragmatic pseudocyst appears resolved. 3. No new mass. No pancreatic abscess or necrosis. 4. Small left pleural effusion, improved The exam was performed using radiation dose optimization techniques including, but not limited to, automated exposure control, adjustment of the mA and/or kV according to patient size and use of iterative reconstruction technique. Interpreted and Authenticated by: Ernesto Man 04/12/18
--- NOTE | 2018-04-12 07:21 | XRay Report ---
CLINICAL INFORMATION: Abdominal pain. History of pancreatitis TECHNIQUE: Supine and upright abdomen COMPARISON: CT scans dated 03/22/2018 and 03/16/2018 FINDINGS: There is a peritendinous gastrostomy feeding tube. Catheter extends into the third portion of the duodenum. Bowel gas pattern is unremarkable. There is gas within the colon. No dilated gas-filled small bowel. No pneumoperitoneum. No biliary or portal venous gas. No pneumatosis. There are surgical clips in the right upper quadrant. IMPRESSION: 1. Nonspecific and nonobstructive bowel gas pattern 2. No acute or focal abnormality Interpreted and Authenticated by: Ernesto Man 04/12/18
[2018-04-12] MEDS ORDERED: ONDANSETRON 4 MG/2 ML VIAL IV PRN (09:05)
[2018-04-12] MEDS ORDERED: DEXTROSE 5%-1/2NS 1,000 ML IV SCH (09:15)
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
[2018-04-12] MEDS ORDERED: PROCHLORPERAZINE 10 MG/2 ML VIAL IV PRN (12:02)
[2018-04-12] MEDS ORDERED: ALBUTEROL SULFATE 2.5 MG/3 ML NEBULIZER NEB PRN (12:02)
[2018-04-12] MEDS ORDERED: BISACODYL 10 MG SUPP.RECT PR PRN (12:02)
[2018-04-12] MEDS ORDERED: MELATONIN 3 MG TABLET PO PRN (12:30)
[2018-04-12] MEDS: 0.9 % SODIUM CHLORIDE 1,000 ML IV SCH ×3 (13:35→19:48)
[2018-04-12] MEDS: 0.9 % SODIUM CHLORIDE 10 ML SYRINGE IV SCH ×2 (13:39→20:01)
[2018-04-12] MEDS: LIPASE/PROTEASE/AMYLASE 1 CAP CAPSULE PO SCH (16:54)
[2018-04-12] MEDS: DOCUSATE SODIUM 100 MG CAPSULE PO SCH (19:08)
[2018-04-12] MEDS: FAMOTIDINE/PF 20 MG/2 ML VIAL IV SCH (19:43)
--- NOTE | 2018-04-12 21:00 | Consultation ---
DATE OF CONSULTATION: 04/12/2018 CHIEF COMPLAINT: Acute on chronic pancreatitis. HISTORY OF PRESENT ILLNESS: Ms. Harrison is a 47-year-old white female known to me from a couple of outpatient visits. Until about a year ago, she had been living in [place], [place]; but following a divorce, she has come back to this area to be close to some of her family. She is an alcoholic. She began drinking during her adult years, mostly in the last 15 years or so. She has developed chronic pancreatitis and has had several hospitalizations in [place], [place], for acute pancreatitis and complications of pancreatitis. She has had pseudocyst formation, has chronic pain and chronic calcifications of the pancreas. During the last 12 months, she had been fairly successful in abstaining from alcohol. However, she did travel back to [place], [place], in August and 09/2017, mostly to go through with divorce proceedings. She actually left [place] early and did not finalize the divorce because she began drinking again and developed pancreatitis requiring hospitalizations there. I have reviewed several of her CAT scans from [place], and she developed a large pseudocyst and some fluid around the tail of the pancreas. During her hospitalizations in [place], she underwent placement of a G-tube with J-tube extension placed by radiology. That feeding tube remains in place. She came back to the [facility], I believe, this summer and reports that she has been abstinent from alcohol except around Thanks. Since she left the [place] in about September through the current time, she says the only time she has had any alcohol was around Thanks. The patient has been in [facility] on, I believe, 2 occasions since around [place] and then again in early March with pancreatitis. She has been treated conservatively with supportive measures. She has been instructed to use some tube feedings through her J-tube, but has run out that. She has for the most part been compliant with a low-fat diet as I had instructed her in the office about 2 months ago. In taking the dietary history, it sounds like she has been eating. She has only been drinking skim milk, cottage cheese, lean meat, etc., and yet on taking further history, it sounds like she has been eating some high-fat foods that she did not know had high-fat content. Specifically, she says that she eats a glazed donut every day. She says that she craves the sweets, but did not realize that the donut had a lot of fat in it. Also, she has been in the habit of eating a bagel with blueberry cream cheese. She thought that the fact that there was blueberry in the cream cheese meant that would not have much fat. I have instructed her otherwise. As recently as earlier this week, she bled a half pound of shrimp and in fact again not realizing that it would have high-fat content. Her pain had been under good control until 3 days ago and then yesterday and 2 days ago, her pain intensified, and she had come to the emergency room today. At the emergency room, her lipase is 794 and amylase 457. The liver chemistries are normal. Her CAT scan has been repeated and compared to 03/16/2018 and 03/22/2018, there is no biliary ductal dilatation. She is status post cholecystectomy. Her liver appears normal without evidence of cirrhosis. There is no significant ascites. Her spleen appears unremarkable. There is a small left pleural effusion. There is a small pseudocyst at the lesser sac which has actually diminished in size down to 3 mm diameter. She does have pancreatic calcifications, but there is no mass identified within the pancreas. There is some fluid in the left upper quadrant around the tail of the pancreas which appears diminished from prior exams. In fact, reviewing the CAT scan records from [place], [place], a few months ago, she had a pseudocyst that was up to 9 x 12 cm. This has steadily been decreasing and this has been steadily diminishing. The patient does smoke 2 cigars per day. She has had no fever. PAST MEDICAL HISTORY: Most significant for the alcohol dependency and the complications of pancreatitis as detailed above. PAST SURGICAL HISTORY: Includes prior cholecystectomy. There is a G-tube with J-tube extension in place, placed by radiology in [place]. The J-tube extension currently extends to the third or early fourth portion of the duodenum. FAMILY HISTORY: Negative for familial pancreatitis. PHYSICAL EXAMINATION: VITAL SIGNS: Blood pressure 156/91, pulse 79, respirations 20, temperature 98 degrees. GENERAL: The patient is awake and alert. She remembers and is coherent and cooperative on her interview. As I talked to her, her pain comes in waves where she will have excruciating pain for about 30 to 60 seconds and then the pain diminishes. Frankly, this seems unusual for pancreatitis pain which is more typically steady and unrelenting. Her airway is patent. LUNGS: Clear bilaterally to auscultation. CARDIAC: Regular rate and rhythm without gallop. ABDOMEN: Soft and nondistended, but she is very tender around the G-tube site. The skin and soft tissues appear not to be inflamed. There is no drainage. She is tender to light palpation, especially to the upper abdomen. EXTREMITIES: Without edema. LABORATORY STUDIES: White count is 9000; hemoglobin 12.7; platelets 369,000. BUN is 9, creatinine 0.4. INR is 1. Amylase 457, lipase 794, total bilirubin 0.4, AST 23, ALT 21, alkaline phosphatase 120. CAT scan as noted above. ASSESSMENT AND RECOMMENDATIONS: This patient certainly has chronic pancreatitis and it appears obvious that she has an element of acute pancreatitis superimposed. I am fairly convinced by her history that she has not been abusing alcohol at least since about and prior to that not since about August or September of this year. It is difficult to definitely identify a cause of her acute pancreatitis other than the dietary indiscretion that she has been inadvertently committed. Specifically, the half pound of shrimp that she had earlier this week, the daily habit of eating a donut, and the habit of cream cheese on her bagel. I have also counseled her to completely stop smoking even the 2 cigars per day that she does smoke. Her pain is a bit unusual, it seems this morning, and that she has intermittent waves of pain much like a bowel obstruction and yet there is no evidence of that by the CAT scan. I was originally anticipating that a referral to [facility] would be required for internal drainage of her large pseudocyst, but as time has gone on, the pseudocyst has continued to diminish. Perhaps a referral to [facility] to consider pancreatic stenting may be a consideration. For now I agree with the supportive measures of intravenous fluid, pain medications, and n.p.o. status. Once her acute pancreatitis subsides further, I think it would be in her best interest to take full advantage of the post-pancreatic feeding tube that is in place. She has used it, but in the limited basis and has run out of her tube feeding. I would recommend elemental tube feeding especially during the nighttime. She apparently has a feeding tube pump available at home. Her daily diet by mouth should be strictly low fat. As noted above, she has had this inadvertent dietary indiscretion by taking some high fat foods that she was unaware of. I would recommend pancreatic enzymes. She has no insurance and these are expensive medications. If she can get these on a compassionate basis, I think it will be worthwhile. She has lost a lot of weight and is down to only 100 pounds whereas a little more than a year ago, I think she weighed about 120 or 123 pounds. Pancreatic enzymes would be taken at the onset of meal and long term through her meals. Of course, I have reinforced the importance of strict alcohol abstinence. JCM:in Job ID: [id number] Doc ID: [id number] Ernesto JAY
[2018-04-13] MEDS: HYDROmorphone 2 MG/ML VIAL IV PRN ×9 (01:53→20:59)
[2018-04-13] MEDS: 0.9 % SODIUM CHLORIDE 1,000 ML IV SCH ×4 (01:53→23:05)
[2018-04-13] MEDS: 0.9 % SODIUM CHLORIDE 10 ML SYRINGE IV SCH ×3 (04:25→22:05)
[2018-04-13] MEDS: ONDANSETRON 4 MG/2 ML VIAL IV PRN ×2 (04:25→11:24)
[2018-04-13 05:57] LABS: Basophils # (Auto) 0 K/mcL (0.0-0.3); Basophils % (Auto) 0.5 % (0.0-2.0); Eosinophils # (Auto) 0.2 K/mcL (0.0-0.7); Eosinophils % (Auto) 2.7 % (0.0-7.0); Granulocytes % (Auto) 60.6 % (38.0-78.0); Lymphocytes # (Auto) 2.2 K/mcL (1.5-4.8); Lymphocytes % (Auto) 27.4 % (15.5-49.0); Mean Cell Volume 95.4 fL (80.0-100.0); Mean Corpuscular HGB Conc 33.2 g/dL (31.0-36.0); Monocytes # (Auto) 0.7 K/mcL (0.1-0.9); Monocytes % (Auto) 8.8 % (1.0-12.0); Platelet Count 302 K/mcL (140-440); RBC 3.85 M/mcL (4.00-5.20); Red Cell Distribution Width 16.1 % (11.5-14.5)
[2018-04-13 06:08] LABS: ALT/SGPT 14 U/l (0-40); Albumin 2.9 gm/dL (3.2-5.2); Albumin/Globulin Ratio 0.9 (1.0-2.3); Alkaline Phosphatase 101 U/L (39-117); Bilirubin,Direct < 0.2 mg/dL (0.0-0.3); Blood Urea Nitrogen 3 mg/dl (6-20); Gamma Glutamyl Transpeptidase 57 U/L (5-36); Lipase 83 U/L (7-60); Uric Acid 3.1 mg/dL (2.5-8.0)
[2018-04-13] MEDS: FAMOTIDINE/PF 20 MG/2 ML VIAL IV SCH ×3 (06:51→20:59)
[2018-04-13] MEDS: LIPASE/PROTEASE/AMYLASE 1 CAP CAPSULE PO SCH ×3 (06:52→16:31)
[2018-04-13] MEDS: FLUoxetine HCL 20 MG CAPSULE PO SCH ×2 (06:52→07:11)
[2018-04-13] MEDS: ENOXAPARIN 30 MG/0.3 ML SYRINGE SQ SCH ×2 (06:53→07:10)
[2018-04-13] MEDS: DOCUSATE SODIUM 100 MG CAPSULE PO SCH ×2 (07:10→20:32)
--- NOTE | 2018-04-13 07:30 | Internal Med Progress Note ---
Medical - PN: Subj Patient information: Note initiated : 04/13/18 at 7:28 am Service Date, if different from initiated Date: [] Patient: Jaleesa Harrison a 47 y/o F admitted on 04/12/18 for Flank pain. Chief Complaint: [] Interval history: Ms. Harrison is a 47 year old F Resents with abdominal pain found to have recurrent pancreatitis upon evaluation ED. Patient states Saturday she started having abdominal pain of her typical pancreatitis in the evening. Continue to she had a point with a primary care provider on and saw him. It is felt that the pain might of been the PEG tube which was adjusted. Saturday she continued pain and woke up early Saturday morning in bed with severe sharp pain radiating to the back. She has recently been admitted to previous times since the end of February. She noted to have large pseudocysts. Repeat CAT scan showed some improvement in the pseudocyst. Case discussed with [place] seismograph shooter who stated patient needs to follow-up outpatient in their clinic but not to transfer to [place] at this time and to treat locally. ED physician contacted Dr. Zayas to follow along. She did have a episode of nausea vomiting today. Does have some shortness of breath because of abdominal pain 04/13 Complains of abdominal pain but is hungry. Had a headache and some nausea. No other new complaints Review of Systems: denies fever/chills/vomiting/chest pain/cough/dyspnea/diarrhea. Otherwise see above. - Constitutional Vitals: Vital Signs Temp Pulse Resp BP Pulse Ox 97.5 F 83 16 137/88 93 04/13/18 06:42 04/13/18 04:00 04/13/18 06:42 04/13/18 06:42 04/13/18 06:42 Period Temp Pulse Resp BP Sys/Castaneda Pulse Ox Last 24 Hr 97.5 F-98.9 F 65-85 16-20 136-165/88-96 90-99 Intake and Output 04/12/18 04/13/18 04/13/18 21:59 05:59 13:59 Intake Total 933 / 933 912 / 912 Output Total 5 / 5 Balance 933 / 933 907 / 907 Weight 50.802 kg Intake & Output: Intake & Output 04/12/18 04/13/18 04/13/18 21:59 05:59 13:59 Intake Total 933 / 933 912 / 912 Output Total Balance 933 / 933 907 / 907 Weight 50.802 kg Intake: IV 933 / 933 912 / 912 Sodium Chloride 0.9% 1,000 ml @ 933 / 933 912 / 912 150 mls/hr IV .Q6H40M [facility] Rx#: [id number] Output: Emesis Other: # Voids 1 Exam: General: Alert, Awake, No acute Distress Eyes/N/T: EOMI, Head/Neck: neck supple, CV: RRR, No murmurs, normal s1/s2 Pulm: Clear b/l, no wheezing/rhonchi/rales Abd: Tender to palpation throughout, +bowel sounds Ext: no clubbing/cyanosis/edema Neuro: Alert, no focal deficits, moves all extremities, Skin: warm/dry Medical - PN: Obj Da - Labs CBC & Chem 7: 04/13/18 04:52 04/13/18 04:52 Labs: Abnormal Lab Results 04/13/18 04/13/18 04/12/18 04:52 04:52 03:40 RBC 3.85 L RDW 16.1 H Anion Gap 7.0 L BUN 3 L Creatinine 0.3 L Glucose Calcium 8.5 L GGT 57 H Alkaline Phosphatase Albumin 2.9 L Albumin/Globulin Ratio 0.9 L Amylase Lipase 83 H Urine Protein 30 A Urine Occult Blood >=1.0 A Urine Urobilinogen 2.0 A Urine RBC 2 H Ur Squamous Epith Cells 6 H Calcium Oxalate Crystal Many A Hyaline Casts 4 H Urine Mucus Many A Urine Opiates Screen 04/12/18 04/12/18 04/12/18 03:40 03:03 03:03 RBC RDW 16.3 H Anion Gap BUN Creatinine 0.4 L Glucose 115 H Calcium GGT Alkaline Phosphatase 120 H Albumin Albumin/Globulin Ratio Amylase 457 H Lipase 794 H Urine Protein Urine Occult Blood Urine Urobilinogen Urine RBC Ur Squamous Epith Cells Calcium Oxalate Crystal Hyaline Casts Urine Mucus Urine Opiates Screen Suspect positive A Meds: Medications Albuterol Sulfate (Ventolin) 2.5 mg NEB Q2HP PRN PRN Reason: Shortness Of Breath Lipase/Protease/Amylase (Creon) 1 cap PO AC [facility] Last Admin: 04/13/18 06:52 Dose: 1 cap Bisacodyl (Dulcolax) 10 mg IN Q2-3DAYS PRN PRN Reason: Constipation Docusate Sodium (Colace) 100 mg PO BID [facility] Last Admin: 04/13/18 07:10 Dose: Not Given Enoxaparin Sodium (Lovenox) 30 mg SQ DAILY [facility] Last Admin: 04/13/18 07:10 Dose: Not Given Famotidine (Pepcid) 20 mg IV Q12 [facility] Last Admin: 04/13/18 07:10 Dose: Not Given Fluoxetine HCl (Prozac) 60 mg PO DAILY [facility] Last Admin: 04/13/18 07:11 Dose: Not Given Hydromorphone HCl (Dilaudid) 0.5 - 2 mg IV Q2HP PRN PRN Reason: PAIN LEVEL > 6 Last Admin: 04/13/18 06:51 Dose: 0.5 mg Sodium Chloride (Sodium Chloride 0.9%) 1,000 mls @ 150 mls/hr IV .Q6H40M [facility] Last Admin: 04/13/18 01:53 Dose: 150 mls/hr Melatonin (Melatonin 3mg Tablet) 9 mg PO HSP PRN PRN Reason: Insomnia Ondansetron HCl (Zofran) 4 mg IV Q6HP PRN PRN Reason: Nausea And Vomiting Last Admin: 04/13/18 04:25 Dose: 4 mg Prochlorperazine Edisylate (Compazine) 5 mg IV Q4HP PRN PRN Reason: Nausea And Vomiting Sodium Chloride (Saline Flush) 10 ml IV Q8 [facility] Last Admin: 04/13/18 04:25 Dose: Not Given Medical - PN: A/P - Time Spent With Patient Total time spent is greater than 50% in coordination of care (as documented) at patient's floor/unit and/or counseling patient: - Narrative A/P Narrative: A: *Acute on chronic pancreatitis with multiple pseudocysts: -Some improvement of pseudocysts on current CT -Perhaps related to dietary indiscretion and continued smoking *Alcohol abuse: no drinks since gi *Tobacco abuse: *Depression: *Cirrhosis, alcohol induced: * P: -IV fluid's -Pain regimen -clear liquids -GI following -Smoking cessation counseling -education on low fat diet -ppx: [employer] Medical - PN: Qual - Stroke Symptom Onset Unknown: No - VTE Deep Vein Thrombosis/Pulmonary Embolism Present on Admission: No
[2018-04-14] MEDS: HYDROmorphone 2 MG/ML VIAL IV PRN ×5 (00:01→09:59)
[2018-04-14] MEDS: 0.9 % SODIUM CHLORIDE 1,000 ML IV SCH ×2 (03:12→09:59)
[2018-04-14] MEDS: ONDANSETRON 4 MG/2 ML VIAL IV PRN ×2 (03:15→09:19)
[2018-04-14] MEDS: 0.9 % SODIUM CHLORIDE 10 ML SYRINGE IV SCH ×2 (04:15→14:05)
[2018-04-14] MEDS: LIPASE/PROTEASE/AMYLASE 1 CAP CAPSULE PO SCH ×2 (07:06→11:17)
[2018-04-14] MEDS: FLUoxetine HCL 20 MG CAPSULE PO SCH (09:02)
[2018-04-14] MEDS: DOCUSATE SODIUM 100 MG CAPSULE PO SCH (09:02)
[2018-04-14] MEDS: FAMOTIDINE/PF 20 MG/2 ML VIAL IV SCH (09:03)
[2018-04-14] MEDS: ENOXAPARIN 30 MG/0.3 ML SYRINGE SQ SCH (09:03)
[2018-04-14] MEDS ORDERED: oxyCODONE HCL 5 MG TABLET PO PRN (10:39)
[2018-04-14] MEDS: oxyCODONE/APAP 5/325MG TABLET PO PRN ×2 (11:17→15:35)
[2018-04-14] MEDS ORDERED: AMOXICILLIN/POTASSIUM CLAV 875 MG TABLET PO SCH (12:40)
--- NOTE | 2018-04-14 14:37 | Discharge Summary ---
Medical - DS: Prov Patient information: Note initiated : 04/14/18 at 2:30 pm Service Date, if different from initiated Date: [] Patient: Jaleesa Harrison 47 y/o F admitted on 04/12/18 for Flank pain. Chief Complaint: [] Date of admission: 04/12/18 10:56 Discharge date: 04/14/18 Primary care physician: Jenn Smith Consults: 04/12/18 08:47 Consult to Physician [CONS] Stat Comment: Consulting Provider: Ernesto Delgado Reason For Exam: Physician to Consult 04/12/18 08:48 Consult to Physician [CONS] Stat Comment: Consulting Provider: Toby Vaz Reason For Exam: Physician to Consult Discharging clinician: Vanita He Medical - DS: Meds - Discharge Medications Prescriptions: Amoxicillin/Potassium Clav [Augmentin] 875 mg PO BIDCC #14 tab Active and Home Medications: Home Medications FLUoxetine HCL [Prozac] 60 mg PO DAILY 03/16/18 [History Confirmed 04/12/18 Last Taken 04/11/18 09:00] HYDROcodone/ACETAMINOPHEN [Blanchard 5-325 Tablet] 1 each PO Q4HP PRN #30 tab [Rx Confirmed 04/12/18 Last Taken 04/12/18 01:00] Lipase/Protease/Amylase [Steven Shoemaker 21,000 Unit Cap] 1 each PO AC #90 capsule. 03/18/18 [Rx Confirmed 04/12/18 Last Taken 04/11/18 17:00] Ondansetron HCl [Zofran ODT] 4 mg SL Q4HP PRN #40 tab 03/19/18 [Rx Confirmed Last Taken 03/22/18] Melatonin 10 mg PO HS PRN 04/12/18 [History Confirmed 04/12/18 Last Taken 21:00] Medical - DS: Hosp Hospital course: Ms. Harrison is a 47 year old F presents with abdominal pain found to have recurrent pancreatitis upon evaluation ED. Patient states Saturday she started having abdominal pain of her typical pancreatitis in the evening. Continue to she had a point with a primary care provider on and saw him. It is felt that the pain might of been the PEG tube which was adjusted. Saturday she continued pain and woke up early Saturday morning in bed with severe sharp pain radiating to the back. She has recently been admitted to previous times since the end of February. She noted to have large pseudocysts. Repeat CAT scan showed some improvement in the pseudocyst. Case discussed with [facility] therapeutic mentor who stated patient needs to follow-up outpatient in their clinic but not to transfer to [place] at this time and to treat locally. ED physician contacted Dr. Zayas to follow along. She did have a episode of nausea vomiting today. Does have some shortness of breath because of abdominal pain 04/13 Complains of abdominal pain but is hungry. Had a headache and some nausea. No other new complaints 04/14 Patient seen examined, had some pain, but improving, lipase back to near baseline, pt able to tolerate po diet well. Switched to oral meds. Pt initially planned to stay for another day, in the hospital, but later decided that she was feeling good and would like to go home. Educated need for compliance with dietary recommendations. The patient also had some pain in the right side of the jaw with tenderness on the right mandible, no e/o acute ulcerations or pus noted, no redness. She notes that she has misfitting dentures. She also had some tender right sided lymphadenopathy, will treat with po augmentin x 7 days. Discharge diagnosis: Acute on Chr pancreatitis - Time Spent with Patient Total time spent providing and/or coordinating discharge services: Greater than 30 minutes Medical - DS: Exam - Constitutional Vitals: Vital Signs Temp Pulse Resp BP Pulse Ox 04/14/18 12:00 98 F 14 137/69 93 04/14/18 07:12 98.5 F 16 167/90 92 04/14/18 04:00 97.7 F 62 16 165/86 92 04/14/18 00:00 97.7 F 64 16 150/88 93 04/13/18 20:00 98.6 F 64 18 150/89 97 04/13/18 19:59 14 04/13/18 15:54 97.8 F 14 130/84 93 Intake and Output 04/14/18 04/14/18 04/14/18 05:59 13:59 21:59 Intake Total 2418 / 2418 1000 / 1000 Balance 2418 / 2418 1000 / 1000 Intake: IV 1618 / 1618 1000 / 1000 Sodium Chloride 0.9% 1,000 ml @ 1618 / 1618 1000 / 1000 150 mls/hr IV .Q6H40M [facility] Rx#: [id number] Oral 800 / 800 Other: Meal Breakfast Percent of Meal Consumed 50% Feeding Ability Independent # Voids 1 2 Additional comments: Constitutional; Afebrile, cooperative, alert, not in distress. Respiratory system: Air Entry equal on both sides, No crackles or wheezing, no rhonchi. CVS- Rate rhythm regular, S1,S2 heard, no gallop, no rub. Abdomen- Soft nontender abdomen, no organomegaly, no tenderness, no guarding or rigidity, PEG Tube in place. COMMERCIAL REAL ESTATE ASSISTANT- AOOx3, moving all extremities, no gross focal deficit noted. Medical - DS: A/P - Patient/Caregiver Discharge Instructions Activity: increase activity as tolerated Diet: Low Fat Additional Instructions: Please follow a low fat diet Use your feeding tube as instructed by the dietitian Follow up with GI in 2-4 weeks Follow up with your PCP in 1-2 weeks. Go to the ER if fever, chest pain, shortness of breath or any other acute concerning symptom. - Follow up Plan Follow up with: Jenn Smith ARNP [Primary Care Provider] - Disposition: Home, Self-Care Prognosis: Fair Rehab Potential: Fair I certify that the patient requires SNF services: No Overall status at discharge: patient is progressing back to baseline Medical - DS: Qual - VTE Deep Vein Thrombosis/Pulmonary Embolism Present on Admission: No
== END 2018-04-14 15:45 | disposition home or self-care (01) | DRG 439 ==
LOC: ED 02:22 → MEDSUR 10:56
PROVIDERS: ADMIT Internal Medicine; ATTEND Internal Medicine
CPT/HCPCS: 99231

== ENCOUNTER 2018-05-20 11:55 | Inpatient (IN) ==
[2018-05-20] MEDS ORDERED: IOPAMIDOL 100 ML BOTTLE IV ONE (11:56)
[2018-05-20] MEDS ORDERED: LACTATED RINGERS 1,000 ML IV ONE (12:14)
[2018-05-20] MEDS ORDERED: ONDANSETRON 4 MG/2 ML VIAL IV ONE (12:14)
--- NOTE | 2018-05-20 12:15 | Emergency Department Note ---
Abdominal Pain HPI - General Chief Complaint: Abdominal Pain Stated Complaint: 'It's my pancreas again" Time Seen by Provider: 05/20/18 12:08 Source: patient Mode of arrival: ambulatory Limitations: no limitations - History of Present Illness HPI Narrative: This patient had a pancreatic pseudocyst drained a few days ago and is having a lot of abdominal pain nausea vomiting at this time. She does have pain medicine at home that does not appear to be controlling her symptoms. - Related Data Home Medications Medication Instructions Recorded Confirmed FLUoxetine HCL [Prozac] 60 mg PO DAILY 03/16/18 05/20/18 Omeprazole [PriLOSEC] 20 mg PO DAILY 05/20/18 05/20/18 Previous Rx's Medication Instructions Recorded Lipase/Protease/Amylase [Pancreaze 1 each PO AC #90 capsule. 03/18/18 21,000 Unit Cap] oxyCODONE/APAP [Percocet 5-325 mg] 1 tab PO Q4H PRN #20 tab 04/29/18 Allergies Allergy/AdvReac Type Severity Reaction Status Date / Time morphine Allergy Mild Itching Verified 04/29/18 12:32 Review of Systems All systems ED: reviewed and negative except as stated. Abdominal Pain PMH - Past Medical History Medical history: Reports: asthma, COPD, GERD (Peptic ulcer disease), liver disease, other (Cirrhosis, pancreatitis with pseudocysts) Psychiatric history: Reports: anxiety, depression Family history: Reports: no significant family history - Social History Smoking status: Current every day smoker Alcohol use: Reports: Occasionally, Heavy (Heavy in the past but she states not since February) Drug use: Reports: none Physical Exam Limitations: no limitations General appearance: alert Head: atraumatic Eye: Present: normal appearance ENT: normal exam Neck: Present: normal inspection Chest: Present: normal inspection Respiratory: Present: normal lung sounds bilaterally Cardiovascular: Present: regular rate, normal rhythm, normal heart sounds Abdominal: Present: soft, tenderness. Absent: distention Abdominal tenderness: Present: diffuse, moderate Neurological: Present: alert Psychiatric: Present: normal affect Skin: Present: warm, dry Course Vital Signs Temperature 99.7 F H 05/20/18 11:56 Pulse Rate 106 H 05/20/18 11:56 Respiratory Rate 24 H 05/20/18 11:56 Blood Pressure 159/84 05/20/18 11:56 Pulse Oximetry (%) 100 05/20/18 11:56 Temperature 99.7 F H 05/20/18 11:56 Pulse Rate 67 05/20/18 19:46 Respiratory Rate 24 H 05/20/18 11:56 Blood Pressure 138/86 05/20/18 19:46 Pulse Oximetry (%) 97 05/20/18 19:46 Abdominal Pain - MDM Narrative Medical decision making narrative: This patient had a pseudocyst aspirated by a needle a week ago. She now has acute pancreatitis and probably reaccumulation of the pseudocyst. I did discuss case with Dr. Eben LOGAN on-call at [place] who thought we could keep her here tonight. Dr. Parikh will admit the patient to the hospital. - Lab Data Lab results reviewed: Yes I reviewed the patient's lab results. Result diagrams: 05/20/18 12:50 05/20/18 12:50 Lab Results 05/20/18 05/20/18 05/20/18 Range/Units 12:50 12:50 12:50 WBC 8.6 (4.5-11.0) K/mcL RBC 3.92 L (4.00-5.20) M/mcL Hgb 11.7 L (12.0-15.0) g/dL Hct 35.8 L (36.0-48.0) % MCV 91.2 (80.0-100.0) fL MCH 29.8 (26.0-34.0) pg MCHC 32.7 (31.0-36.0) g/dL RDW 16.8 H (11.5-14.5) % Plt Count 396 (140-440) K/mcL MPV 8.1 (7.4-10.4) fL Gran % 67.0 (38.0-78.0) % Lymph % (Auto) 21.5 (15.5-49.0) % Steele % (Auto) 8.7 (1.0-12.0) % Eos % (Auto) 2.1 (0.0-7.0) % Baso % (Auto) 0.7 (0.0-2.0) % Gran # 5.8 (1.8-8.0) K/mcL Lymph # (Auto) 1.8 (1.5-4.8) K/mcL Steele # (Auto) 0.7 (0.1-0.9) K/mcL Eos # (Auto) 0.2 (0.0-0.7) K/mcL Baso # (Auto) 0.1 (0.0-0.3) K/mcL Sodium 138 (133-145) mmol/L Potassium 4.1 (3.3-5.1) mmol/L Chloride 103 (96-108) mmol/L Carbon Dioxide 21 L (22-30) mmol/L Anion Gap 14.0 (8-16) BUN 7 (6-20) mg/dl Creatinine 0.3 L (0.6-1.1) mg/dl GFR Calculation 136 Glucose 107 H (70-105) mg/dL Calcium 8.9 (8.6-10.4) mg/dl Total Bilirubin 0.5 (0.0-1.0) mg/dL AST 17 (0-37) U/l ALT 8 (0-40) U/l Alkaline Phosphatase 113 (39-117) U/L Total Protein 7.1 (5.9-8.4) gm/dL Albumin 3.4 (3.2-5.2) gm/dL Globulin 3.7 (2.2-3.7) gm/dL Albumin/Globulin Ratio 0.9 L (1.0-2.3) Lipase 443 H (7-60) U/L Ethyl Alcohol 0.019 H (<0.010) gm/dl - Radiology Data Radiology results reviewed: Yes I reviewed the patient's radiology results. Disposition Pt seen by INSPECTOR SEMICONDUCTOR WAFER/PA only: No Clinical Impression: Pancreatitis Disposition: Xfer As Inpt ([facility]) Condition: Good Referrals: Jenn Smith ARNP [Primary Care Provider] - Time of Disposition: 19:56
[2018-05-20] MEDS: HYDROmorphone 2 MG/ML VIAL IV PRN ×5 (12:45→21:44)
[2018-05-20 13:28] LABS: Basophils # (Auto) 0.1 K/mcL (0.0-0.3); Basophils % (Auto) 0.7 % (0.0-2.0); Eosinophils # (Auto) 0.2 K/mcL (0.0-0.7); Eosinophils % (Auto) 2.1 % (0.0-7.0); Lymphocytes # (Auto) 1.8 K/mcL (1.5-4.8); Lymphocytes % (Auto) 21.5 % (15.5-49.0); Mean Cell Volume 91.2 fL (80.0-100.0); Mean Corpuscular HGB Conc 32.7 g/dL (31.0-36.0); Monocytes # (Auto) 0.7 K/mcL (0.1-0.9); Monocytes % (Auto) 8.7 % (1.0-12.0); Platelet Count 396 K/mcL (140-440); RBC 3.92 M/mcL (4.00-5.20); Red Cell Distribution Width 16.8 % (11.5-14.5)
[2018-05-20 14:05] LABS: ALT/SGPT 8 U/l (0-40); Albumin 3.4 gm/dL (3.2-5.2); Albumin/Globulin Ratio 0.9 (1.0-2.3); Alkaline Phosphatase 113 U/L (39-117); Blood Urea Nitrogen 7 mg/dl (6-20); Lipase 443 U/L (7-60)
--- NOTE | 2018-05-20 16:11 | Cat Scan Report ---
CLINICAL INFORMATION: Pancreatitis COMPARISON: Abdomen CT 04/12/2018 and 05/04/2018. TECHNIQUE: Following enteric contrast, 80 cc of Isovue-300 were injected intravenously, and 60 seconds later, 0.625 mm helical slices were obtained from the mid heart through the subtrochanteric regions. Following reconstruction, 2.5 mm sagittal, coronal and axial reformatted images were processed and reviewed at bone, lung and soft tissue windows. Five minutes later, 0.625 mm helical slices were obtained from the mid heart through the kidneys and viewed at soft tissue windows.The exam was performed using radiation dose optimization techniques including, but not limited to, automated exposure control, adjustment of the mA and/or kV according to patient size and use of iterative reconstruction technique. FINDINGS: Moderate simple left pleural effusion is unchanged. Mild atelectasis in the posterior left lower lobe is also stable. Right lung base unremarkable. The visualized heart is grossly normal. Images of the abdomen show moderate hepatomegaly with decreased attenuation and inhomogeneity suggesting diffuse hepatocellular disease. No focal hepatic lesion. Chronic pancreatitis featuring reduction in overall pancreatic gland volume and multiple large calcifications throughout the pancreatic parenchyma are again seen. A bilobed pseudocyst originating from Santorini duct in the mid body extends through the parenchyma into the anterior peripancreatic fat planes. It has increased in size from 4 to 4.9 cm since the previous exam. In addition, a large amount of fluid in the peripancreatic fat planes lesser sac perisplenic and perigastric region has generally increased in volume compatible with worsening pancreatitis. There is no evidence of ivania pancreatic necrosis or abscess. The pancreatic duct is mildly dilated - 4 mm. Common bile duct also dilated to 10 mm. These are unchanged Both kidneys, adrenal glands, spleen and aorta are unremarkable. The stomach, small and large bowel show mild symmetric dilatation patible with mild ileus. Small amount of free fluid noted in the true pelvis. Images through the pelvis also show retroflexed uterus which is unremarkable. Ovaries are normal. Urinary bladder unremarkable. Bone windows show no osseous abnormality IMPRESSION: 1. Chronic pancreatitis. Reduction in pancreatic volume with multiple coarse calcifications and dilatation of the pancreatic duct (4 mm). A pseudocyst, communicating with Santorini stomach, in the mid pancreatic body is increased from 4 to [address] this two weeks ago. Moreover, there is a large amount of fluid predominantly the lesser sac and peripancreatic fat planes increase in volume compatible with worsening acute on chronic pancreatitis. 2. Moderate hepatomegaly suggesting primary hepatopathy such as hepatitis or developing cirrhosis. 3. Moderate left pleural effusion unchanged Interpreted and Authenticated by: Ernesto Gomes 05/20/18
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
[2018-05-20] MEDS ORDERED: ONDANSETRON 4 MG/2 ML VIAL IV PRN (20:45)
[2018-05-20] MEDS ORDERED: 0.9 % SODIUM CHLORIDE 1,000 ML IV SCH (20:45)
[2018-05-20] MEDS ORDERED: BISACODYL 10 MG SUPP.RECT PR PRN (20:45)
[2018-05-20] MEDS ORDERED: traZODone HCL 50 MG TABLET PO PRN (20:45)
[2018-05-20] MEDS: HEPARIN 5,000 UNIT/ML VIAL SQ SCH (21:17)
[2018-05-20] MEDS: DOCUSATE SODIUM 100 MG CAPSULE PO SCH (21:17)
[2018-05-20] MEDS: ACETAMINOPHEN 1,000 MG/100 ML BOTTLE IV PRN (21:18)
[2018-05-20] MEDS: 0.9 % SODIUM CHLORIDE 10 ML SYRINGE IV SCH (21:45)
[2018-05-20] MEDS: 0.9 % SODIUM CHLORIDE 1,000 ML IV SCH (23:15)
[2018-05-20] MEDS ORDERED: LORazepam 2 MG/ML VIAL IV ONE (23:30)
[2018-05-20] MEDS ORDERED: LORazepam 2 MG/ML VIAL ONE (23:40)
[2018-05-21] MEDS: HYDROmorphone 2 MG/ML VIAL IV PRN ×4 (02:08→16:23)
[2018-05-21] MEDS: 0.9 % SODIUM CHLORIDE 10 ML SYRINGE IV SCH ×3 (05:07→19:59)
[2018-05-21 05:40] LABS: Mean Cell Volume 92.2 fL (80.0-100.0); Mean Corpuscular HGB Conc 32.8 g/dL (31.0-36.0); Platelet Count 340 K/mcL (140-440); Red Cell Distribution Width 16.5 % (11.5-14.5)
[2018-05-21 05:41] LABS: ALT/SGPT 6 U/l (0-40); Albumin 2.8 gm/dL (3.2-5.2); Albumin/Globulin Ratio 0.9 (1.0-2.3); Alkaline Phosphatase 90 U/L (39-117); Bilirubin,Direct < 0.2 mg/dL (0.0-0.3); Blood Urea Nitrogen 6 mg/dl (6-20); C-Reactive Protein 3.2 mg/dl (0.0-0.8); Gamma Glutamyl Transpeptidase 74 U/L (5-36); Uric Acid 2.9 mg/dL (2.5-8.0)
[2018-05-21] MEDS: 0.9 % SODIUM CHLORIDE 1,000 ML IV SCH ×3 (07:35→23:45)
[2018-05-21] MEDS: CHLORHEXIDINE GLUCONATE 1 ML ORAL.SOL SWABMOUTH SCH ×2 (09:38→20:00)
[2018-05-21] MEDS: HEPARIN 5,000 UNIT/ML VIAL SQ SCH ×2 (09:39→20:00)
[2018-05-21] MEDS: LIPASE/PROTEASE/AMYLASE 1 CAP CAPSULE PO SCH ×3 (09:39→16:36)
[2018-05-21] MEDS: FLUoxetine HCL 20 MG CAPSULE PO SCH (09:39)
--- NOTE | 2018-05-21 09:49 | Internal Med Progress Note ---
Medical - PN: Subj Patient information: Note initiated : 05/21/18 at 9:46 am Service Date, if different from initiated Date: [] Patient: Jaleesa Harrison a 47 y/o F admitted on 05/20/18 for 'It's my pancreas again". Chief Complaint: [] Interval history: Ms. Harrison is a 47 year old F with a known history of alcoholic pancreatitis with recurrent flares and pseudocyst formation. Patient's last admission was in March. She was subsequently evaluated at [facility] and underwent endoscopic ultrasound-guided pancreatic cyst drainage along with PEJ tube placement a week ago. However patient continues to drink and now presents with worsening abdominal pain rated as 8 out of 10-10 out of 10 with radiation to the back associated with nausea that started over the last 36 hours. She denies associated fever or chills. Initial workup in the ER was significant for elevated lipase over [address] abdomen revealing increase in size of pseudocyst to 5 cm and finding consistent with acute on chronic pancreatitis. [facility] gastroenterology was consulted by ER and on-call chucking machine set up operator tool recommended local admission and management of pancreatitis in the absence of signs of obstruction. Patient was started on crystalloids along with antiemetics and analgesics. Hospitalist service was consulted for admission in light of above recommendations from [facility] gastroenterology 05/21-pain slightly improved. [facility]. Continue pain management/bowel rest/crystalloids. CRP uptrending downtrending from 4.7-3.2. Continue clinical monitoring. Case discussed with [facility] chucking machine set up operator tool Dr. Asher. After reviewing the images Dr. Asher recommended that patient should follow-up as an outpatient for repeat endoscopy cystogastrostomy procedure. At this time he recommended continuing conservative management for acute pancreatitis. He was very concerned about patient's drinking relapse which would predispose her for recurrent future pancreatitis episodes. - Constitutional Vitals: Vital Signs Temp Pulse Resp BP Pulse Ox 99.6 F H 71 22 148/85 94 05/21/18 07:59 05/21/18 07:27 05/21/18 07:59 05/21/18 07:59 05/21/18 07:59 Period Temp Pulse Resp BP Sys/Castaneda Pulse Ox Last 24 Hr 97.4 F-99.7 F 66-106 18-24 112-179/76-104 92-100 Intake and Output 05/20/18 05/21/18 05/21/18 21:59 05:59 13:59 Intake Total 1000 0 1000 Output Total 350 Balance 1000 -350 1000 Weight 106 lb Intake & Output: Intake & Output 05/20/18 05/21/18 05/21/18 21:59 05:59 13:59 Intake Total 1000 0 1000 Output Total 350 Balance 1000 -350 1000 Weight 106 lb Intake: IV 1000 1000 Sodium Chloride 0.9% 1,000 ml @ 1000 125 mls/hr IV .Q8H [facility] Rx#: [id number] Lactated Ringers 1,000 ml @ 1000 Wide Open IV BOLUS ONE Rx#: [id number] Oral 0 Output: Void Amount 350 Other: Urine Color Dark Jaz Urine Odor Strong General appearance: cooperative, moderate distress (Abdominal pain) Exam: Alert oriented Nonlabored breathing Nondistended abdomen Medical - PN: Obj Da - Labs CBC & Chem 7: 05/21/18 03:29 05/21/18 09:30 Labs: Abnormal Lab Results 05/21/18 05/21/18 05/20/18 03:29 03:29 20:45 RBC 3.50 L Hgb 10.6 L Hct 32.3 L RDW 16.5 H Carbon Dioxide Creatinine 0.3 L Glucose Calcium 8.2 L GGT 74 H C-Reactive Protein 3.2 H 4.7 H Total Protein 5.8 L Albumin 2.8 L Albumin/Globulin Ratio 0.9 L Lipase Ethyl Alcohol 05/20/18 05/20/18 05/20/18 12:50 12:50 12:50 RBC 3.92 L Hgb 11.7 L Hct 35.8 L RDW 16.8 H Carbon Dioxide 21 L Creatinine 0.3 L Glucose 107 H Calcium GGT C-Reactive Protein Total Protein Albumin Albumin/Globulin Ratio 0.9 L Lipase 443 H Ethyl Alcohol 0.019 H Meds: Medications Lipase/Protease/Amylase (Creon) 1 cap PO AC [facility] Last Admin: 05/21/18 09:39 Dose: 1 cap Documented by: Bisacodyl (Dulcolax) 10 mg HI Q2-3DAYS PRN PRN Reason: Constipation Chlorhexidine Gluconate (Peridex) 15 ml SWABMOUTH BID [facility] Last Admin: 05/21/18 09:38 Dose: 15 ml Documented by: Docusate Sodium (Colace) 100 mg PO BID [facility] Last Admin: 05/20/18 21:17 Dose: Not Given Documented by: Fluoxetine HCl (Prozac) 60 mg PO DAILY [facility] Last Admin: 05/21/18 09:39 Dose: 60 mg Documented by: Heparin Sodium (Porcine) (Heparin) 5,000 unit SQ Q12 [facility] Last Admin: 05/21/18 09:39 Dose: 5,000 unit Documented by: Hydromorphone HCl (Dilaudid) 0 mg IV Q4HP PRN PRN Reason: PAIN LEVEL > 6 Last Admin: 05/21/18 07:36 Dose: 0.5 mg Documented by: Sodium Chloride (Sodium Chloride 0.9%) 1,000 mls @ 125 mls/hr IV .Q8H [facility] Last Admin: 05/21/18 07:35 Dose: 125 mls/hr Documented by: Sodium Chloride (Sodium Chloride 0.9%) 1,000 mls @ 0 mls/hr IV BOLUS [facility] Last Admin: 05/20/18 21:01 Dose: 500 mls/hr Documented by: Acetaminophen (Ofirmev) 1,000 mg in 100 mls @ 200 mls/hr IV Q8HP PRN PRN Reason: PAIN/FEVER > 101 Last Admin: 05/20/18 21:18 Dose: 200 mls/hr Documented by: Ondansetron HCl (Zofran) 4 mg IV Q4-6HP PRN PRN Reason: Nausea And Vomiting Last Admin: 05/20/18 21:17 Dose: 4 mg Documented by: Sodium Chloride (Saline Flush) 10 ml IV Q8 [facility] Last Admin: 05/21/18 05:07 Dose: Not Given Documented by: Trazodone HCl (Desyrel) 50 mg PO HSP PRN PRN Reason: Insomnia Medical - PN: A/P - Time Spent With Patient Total time spent is greater than 50% in coordination of care (as documented) at patient's floor/unit and/or counseling patient: 25 - 35 minutes (1) Acute on chronic pancreatitis Status: Acute Assessment and plan: * Acute on chronic pancreatitis with enlarging pseudocyst and recent cyst drainage. CT abdomen enlarging cyst now at 5 cm along with findings consistent with acute on chronic pancreatitis. ER physician discussed case with [facility] on-call chucking machine set up operator tool who recommended admission for management of pancreatitis however in light of absence of obstructive symptoms patient would not require emergent transfer to [facility]. - - -Continue conservative management with bowel rest/trickle tube feeds/crystalloid/analgesics and antiemetics * Abdominal pain -well-controlled on opioids * History of alcohol dependence high risk alcohol withdrawal. No signs of withdrawal as yet * Dependence continue nicotine patch * alcoholic cirrhosis-at baseline Plan * Continue bowel rest/conservative * Pain management * Trend CRP Current Visit: No Medical - PN: Qual - VTE Deep Vein Thrombosis/Pulmonary Embolism Present on Admission: No
[2018-05-21] MEDS: DOCUSATE SODIUM 100 MG CAPSULE PO SCH ×2 (09:53→20:00)
[2018-05-21 10:28] LABS: ALT/SGPT 5 U/l (0-40); Albumin 2.8 gm/dL (3.2-5.2); Albumin/Globulin Ratio 0.9 (1.0-2.3); Alkaline Phosphatase 92 U/L (39-117); Bilirubin,Direct < 0.2 mg/dL (0.0-0.3); Blood Urea Nitrogen 6 mg/dl (6-20); Gamma Glutamyl Transpeptidase 74 U/L (5-36); Uric Acid 3.1 mg/dL (2.5-8.0)
[2018-05-21 10:39] LABS: Anisocytosis 1+ (NONE SEEN); Eosinophils % (Manual) 2 % (0-7); Lymphocytes % 34 % (15-49); Monocytes % (Manual) 4 % (1-12); Platelet Estimate NORMAL (NORMAL); RBC Morphology ABNORM (NORMAL); Segmented Neutrophils % 60 % (38-78)
[2018-05-21] MEDS: ACETAMINOPHEN 1,000 MG/100 ML BOTTLE IV PRN (11:28)
[2018-05-21] MEDS: oxyCODONE/APAP 5/325MG TABLET PO PRN ×2 (15:31→20:00)
--- NOTE | 2018-05-21 18:04 | Ultrasound Report ---
CLINICAL INFORMATION: pseudocyst- assess change in size. COMPARISON: Abdomen and pelvic CT one day prior - 05/20/2018 FINDINGS: The pancreas is atrophic with multiple calcifications and enlargement of the pancreatic duct: 4 mm. Findings are compatible with mild chronic pancreatitis. 5 cm pseudocyst, anterior to the pancreatic body, is unchanged from the CT just one day prior. Moderate fluid in the lesser sac and perisplenic region is also unchanged. The liver is moderately enlarged and diffusely hyperechoic compatible with diffuse hepatocellular disease/cirrhosis. No focal hepatic lesions. The common bile duct is 10 mm - unchanged. Gallbladder is surgically absent IMPRESSION: Chronic pancreatitis with 5 cm pseudocyst anterior to the pancreatic body and perisplenic fluid identical to the CT one day prior. Moderate hepatomegaly with increased echotexture compatible with cirrhosis Interpreted and Authenticated by: Ernesto Gomes 05/21/18
[2018-05-22] MEDS: oxyCODONE/APAP 5/325MG TABLET PO PRN ×2 (04:51→09:23)
[2018-05-22] MEDS: 0.9 % SODIUM CHLORIDE 10 ML SYRINGE IV SCH (04:52)
[2018-05-22 05:42] LABS: Mean Cell Volume 93.3 fL (80.0-100.0); Mean Corpuscular HGB Conc 31.9 g/dL (31.0-36.0); Platelet Count 344 K/mcL (140-440); RBC 3.83 M/mcL (4.00-5.20); Red Cell Distribution Width 16.7 % (11.5-14.5)
[2018-05-22 06:18] LABS: ALT/SGPT 6 U/l (0-40); Albumin 2.8 gm/dL (3.2-5.2); Albumin/Globulin Ratio 0.8 (1.0-2.3); Alkaline Phosphatase 105 U/L (39-117); Bilirubin,Direct < 0.2 mg/dL (0.0-0.3); Blood Urea Nitrogen 4 mg/dl (6-20); Gamma Glutamyl Transpeptidase 90 U/L (5-36); Uric Acid 2.7 mg/dL (2.5-8.0)
[2018-05-22] MEDS: 0.9 % SODIUM CHLORIDE 1,000 ML IV SCH (07:27)
[2018-05-22] MEDS: LIPASE/PROTEASE/AMYLASE 1 CAP CAPSULE PO SCH (08:20)
[2018-05-22 08:27] LABS: Anisocytosis 1+ (NONE SEEN); Eosinophils % (Manual) 3 % (0-7); Lymphocytes % 22 % (15-49); Monocytes % (Manual) 6 % (1-12); Platelet Estimate NORMAL (NORMAL); RBC Morphology ABNORM (NORMAL); Segmented Neutrophils % 69 % (38-78)
[2018-05-22] MEDS: HEPARIN 5,000 UNIT/ML VIAL SQ SCH (09:15)
[2018-05-22] MEDS: FLUoxetine HCL 20 MG CAPSULE PO SCH (09:15)
[2018-05-22] MEDS: CHLORHEXIDINE GLUCONATE 1 ML ORAL.SOL SWABMOUTH SCH (09:16)
[2018-05-22] MEDS: DOCUSATE SODIUM 100 MG CAPSULE PO SCH (09:16)
--- NOTE | 2018-05-22 10:02 | Discharge Summary ---
Medical - DS: Prov Patient information: Note initiated : 05/22/18 at 10:00 am Service Date, if different from initiated Date: [] Patient: Jaleesa Harrison a 47 y/o F admitted on 05/20/18 for Pancreatitis. Chief Complaint: [] Date of admission: 05/20/18 20:41 Discharge date: 05/22/18 Primary care physician: Jenn Smith Medical - DS: Meds - Discharge Medications Active and Home Medications: Home Medications FLUoxetine HCL [Prozac] 60 mg PO DAILY 03/16/18 [History Confirmed 05/20/18 Last Taken 04/11/18 09:00] Lipase/Protease/Amylase [Pancreazsilvetsre [place] 21,000 Unit Cap] 1 each PO AC #90 capsule. 03/18/18 [Rx Confirmed 05/20/18 Last Taken 04/11/18 17:00] oxyCODONE/APAP [Percocet 5-325 mg] 1 tab PO Q4H PRN #20 tab 04/29/18 [Rx Confirmed 05/20/18 Last Taken Unknown] Omeprazole [Prilosec] 20 mg PO DAILY 05/20/18 [History Confirmed 05/20/18 Last Taken Unknown] Medical - DS: Hosp Hospital course: Discharge diagnosis * Acute on chronic pancreatitis with enlarging pseudocyst and recent cyst drainage. CT abdomen enlarging cyst now at 5 cm along with findings consistent with acute on chronic pancreatitis. Case discussed with gastroenterology Dr. Asher. Recommendations are to discharge patient once acute flare resolves and have follow-up with [facility] and subsequent week for cystogastrostomy procedure. The appointment will be sc heduled by [facility] gastrology and patient will be called by GI clinic. -Clinically resolved with continued conservative management. Tube feeds initiated. Continue analgesics and antiemetics as needed and advised to refrain from alcohol to prevent future episodes of pancreatitis flares * Abdominal pain -well managed on opioids * History of alcohol dependence high risk alcohol withdrawal. Counseled to refrain from alcohol * Dependence continue nicotine patch * alcoholic cirrhosis-at baseline Brief hospital course Ms. Harrison is a 47 year old F with a known history of alcoholic pancreatitis with recurrent flares and pseudocyst formation. Patient's last admission was in March. She was subsequently evaluated at [place] and underwent endoscopic ultrasound-guided pancreatic cyst drainage, celiac plexus block along with PEJ tube repositioning a week ago. However patient continues to drink and now presents with worsening abdominal pain rated as 8 out of 10-10 out of 10 with radiation to the back associated with nausea that started over the last 36 hours. She denies associated fever or chills. Initial workup in the ER was significant for elevated lipase over [address] abdomen revealing increase in size of pseudocyst to 5 cm and finding consistent with acute on chronic pancreatitis. [place] gastroenterology was consulted by ER and on-call private banker recommended local admission and management of pancreatitis in the absence of signs of obstruction. Patient was started on crystalloids along with antiemetics and analgesics. Hospitalist service was consulted for admission in light of above recommendations from [place] gastro[facility]ology 05/21-pain slightly improved. Will restart tube feeds at [facility]. Continue pain management/bowel rest/crystalloids. CRP uptrending downtrending from 4.7-3.2. Continue clinical monitoring. Case discussed with [place] private banker Dr. Asher. After reviewing t he images Dr. Asher recommended that patient should follow-up as an outpatient for repeat endoscopy cystogastrostomy procedure. At this time he recommended continuing conservative management for acute pancreatitis. He was very concerned about patient's drinking relapse which would predispose her for recurrent future pancreatitis episodes. 05/22-patient doing well. Tolerating tube feeds/low-fat diet. Discharging with recommendations to follow up with Dr. Asher for cystogastrostomy procedure. Abdominal pain resolved. Feels at baseline. Requesting discharge. Detailed discharge instructions below. Advised to refrain from alcohol Discharge diagnosis: . - Time Spent with Patient Total time spent providing and/or coordinating discharge services: Greater than 30 minutes Medical - DS: Exam - Constitutional Vitals: Vital Signs Temp Pulse Pulse Resp BP BP Pulse Ox 05/22/18 07:34 98.5 F 77 14 168/98 96 05/22/18 04:59 163/88 05/22/18 04:00 97.9 F 81 18 188/104 97 05/21/18 23:50 98.6 F 70 18 148/78 96 05/21/18 20:00 99.7 F H 18 144/88 96 05/21/18 16:00 99.0 F 20 156/91 94 05/21/18 11:35 99.1 F H 72 18 139/91 93 01/30/19 11:28 99.1 F H Intake and Output 05/21/18 05/22/18 05/22/18 21:59 05:59 13:59 Intake Total 1114 1060 1190 Output Total 1400 900 Balance 1114 -340 290 Intake: IV 994 1000 1190 Sodium Chloride 0.9% 1,000 ml @ 994 1000 1190 125 mls/hr IV .Q8H [facility] Rx#: [id number] Oral 0 Tube Feeding 60 GI Tube Flush 60 60 Output: Void Amount 1400 900 Other: Urine Appearance Clear Clear Urine Color Light Jaz Dark Yellow Pale Urine Odor Normal Normal Stool Color Yellow Stool Consistency Soft Watery Loose # Voids 1 1 # Bowel Movements 1 Weight 107 lb Medical - DS: Data Labs on day of discharge: Labs from last 24 hours 05/22/18 05/22/18 05/21/18 03:11 03:11 09:30 WBC 7.1 RBC 3.83 L Hgb 11.4 L Hct 35.7 L MCV 93.3 MCH 29.8 MCHC 31.9 RDW 16.7 H Plt Count 344 MPV 8.8 Total Counted 100 Seg Neutrophils % 69 Band Neutrophils % Not Reportable Lymphocytes % 22 Monocytes % (Manual) 6 Eosinophils % (Manual) 3 Platelet Estimate Normal RBC Morphology Abnorm A Anisocytosis 1+ A Sodium 142 138 Potassium 3.9 4.0 Chloride 108 106 Carbon Dioxide 24 23 Anion Gap 10.0 9.0 BUN 4 L 6 Creatinine 0.4 L 0.3 L GFR Calculation 124 136 Glucose 101 87 Uric Acid 2.7 3.1 Calcium 8.7 8.2 L Phosphorus 2.7 3.4 Magnesium 1.8 1.8 Total Bilirubin 0.3 0.6 Direct Bilirubin < 0.2 < 0.2 GGT 90 H 74 H AST 11 11 ALT 6 5 Alkaline Phosphatase 105 92 Lactate Dehydrogenase 169 162 Total Protein 6.3 5.9 Albumin 2.8 L 2.8 L Globulin 3.5 3.1 Albumin/Globulin Ratio 0.8 L 0.9 L Triglycerides 110 113 05/21/18 03:29 WBC RBC Hgb Hct MCV MCH MCHC RDW Plt Count MPV Total Counted 100 Seg Neutrophils % 60 Band Neutrophils % Lymphocytes % 34 Monocytes % (Manual) 4 Eosinophils % (Manual) 2 Platelet Estimate Normal RBC Morphology Abnorm A Anisocytosis 1+ A Sodium Potassium Chloride Carbon Dioxide Anion Gap BUN Creatinine GFR Calculation Glucose Uric Acid Calcium Phosphorus Magnesium Total Bilirubin Direct Bilirubin GGT AST ALT Alkaline Phosphatase Lactate Dehydrogenase Total Protein Albumin Globulin Albumin/Globulin Ratio Triglycerides Medical - DS: A/P - Patient/Caregiver Discharge Instructions Activity: increase activity as tolerated Diet: Low Fat (Tube feeds as per) Additional Instructions: Follow-up PCP in 5 days Follow-up with [facility] [place] [facility] Dr. Asher for cystogastrostomy procedure (appointment will be scheduled as per [facility] gastrology and patient will be called by the [facility]ology office) Refrain from alcohol use All meals on chair sitting upright at 90 degrees to prevent aspiration Return to ER if worsening abdominal pain nausea vomiting Continue tube feed/low-fat diet and activity as advised Discussed importance of medication adherence Please review medication list with patient prior to discharge Please schedule follow-up with PCP/Providers prior to discharge and provide printouts - Follow up Plan Follow up with: Jenn Smith ARNP [Primary Care Provider] - Disposition: Home, Self-Care Prognosis: Good Rehab Potential: Fair I certify that the patient requires SNF services: No Overall status at discharge: patient is back to baseline Medical - DS: Qual - VTE Deep Vein Thrombosis/Pulmonary Embolism Present on Admission: No
== END 2018-05-22 11:25 | disposition home or self-care (01) | DRG 439 ==
LOC: ED 11:55 → ICU 20:40
PROVIDERS: ADMIT Internal Medicine; ATTEND Internal Medicine

== ENCOUNTER 2018-07-01 11:43 | Inpatient (IN) ==
[2018-07-01] MEDS ORDERED: IOPAMIDOL 100 ML BOTTLE IV ONE (11:44)
[2018-07-01] MEDS ORDERED: 0.9 % SODIUM CHLORIDE 1,000 ML IV ONE ×3 (12:12→15:14)
[2018-07-01] MEDS ORDERED: ONDANSETRON 4 MG ODT TABLET SL ONE (12:15)
[2018-07-01] MEDS ORDERED: ONDANSETRON 4 MG/2 ML VIAL IV ONE (12:20)
[2018-07-01] MEDS: HYDROmorphone 2 MG/ML VIAL IV PRN ×4 (12:27→20:40)
[2018-07-01 12:44] LABS: Basophils # (Auto) 0 K/mcL (0.0-0.3); Basophils % (Auto) 0.2 % (0.0-2.0); Eosinophils # (Auto) 0 K/mcL (0.0-0.7); Eosinophils % (Auto) 0.2 % (0.0-7.0); Granulocytes % (Auto) 75.7 % (38.0-78.0); Lymphocytes % (Auto) 17.1 % (15.5-49.0); Mean Cell Volume 88.8 fL (80.0-100.0); Monocytes # (Auto) 0.8 K/mcL (0.1-0.9); Monocytes % (Auto) 6.8 % (1.0-12.0); Platelet Count 337 K/mcL (140-440); Red Cell Distribution Width 17.1 % (11.5-14.5)
[2018-07-01 12:51] LABS: Amylase 129 U/L (28-100)
[2018-07-01 13:01] LABS: ALT/SGPT 22 U/l (0-40); Albumin/Globulin Ratio 0.9 (1.0-2.3); Alkaline Phosphatase 160 U/L (39-117); Blood Urea Nitrogen 4 mg/dl (6-20); Lipase 47 U/L (7-60)
[2018-07-01] MEDS ORDERED: ACETAMINOPHEN 325 MG TABLET PO ONE (15:14)
--- NOTE | 2018-07-01 15:30 | Cat Scan Report ---
CLINICAL INFORMATION: Pancreatitis as acute upon chronic COMPARISON: 05/20/2018 TECHNIQUE: Following enteric contrast, 80 cc of Isovue-300 were injected intravenously, and 60 seconds later, 0.625 mm helical slices were obtained from the mid heart through the subtrochanteric regions. Following reconstruction, 2.5 mm sagittal, coronal and axial reformatted images were processed and reviewed at bone, lung and soft tissue windows. Five minutes later, 0.625 mm helical slices were obtained from the mid heart through the kidneys and viewed at soft tissue windows.The exam was performed using radiation dose optimization techniques including, but not limited to, automated exposure control, adjustment of the mA and/or kV according to patient size and use of iterative reconstruction technique. FINDINGS: Small/moderate left pleural effusion is unchanged. subsegmental atelectasis in the lingula and posterior left lower lobe are also stable. The right lung base is normal. The visualized heart is unremarkable. Images through the abdomen show mild fatty change within the liver with few small cysts which are stable. Gallbladder is surgically absent. Intrahepatic and common bile ducts are normal caliber: CBD is 6 mm. The pancreas is decreased in volume with multiple parenchymal calcifications compatible with chronic pancreatitis. The pseudocyst, arising from the anterior tail region, and extending into the retrogastric region,is unchanged in size: 5 cm. It communicates the distal Santorini duct. A smaller 13 mm pseudocyst in the anterior pancreatic tail is also unchanged. A new 2.3 cm pseudocyst in the retrogastric region is new. Moderate fluid in the lesser sac and peripancreatic fat planes is unchanged. There is small amount of ascites in the perihepatic and perisplenic region and a moderate amount in the deep true pelvis which has increased. The kidneys, adrenal glands, spleen and aorta, including aortic branches, are normal in size, configuration and attenuation without focal lesion. Stomach, small and large bowel are symmetrically dilated compatible with mild ileus. No free air. Images of the pelvis show uterus, urinary bladder and region of the ovaries to be normal. Bone windows show no osseous abnormality. IMPRESSION: 1. Acute on chronic pancreatitis. Pancreas is diminutive and multiple calcifications patible with chronic inflammation. There is also mild inflammation of the pancreatic parenchyma with fluid in the peripancreatic fat planes and lesser sac. A moderate amount of ascites has increased. 5 cm pseudocyst in pancreatic tail and a 13 mm smaller pseudocyst also the pancreatic tail are unchanged in size. There is a new 2.3 cm pseudocyst more anteriorly retrogastric region. 2. Mild ileus Interpreted and Authenticated by: Ernesto Gomes 07/01/18
--- NOTE | 2018-07-01 15:59 | Emergency Department Note ---
Abdominal Pain HPI - General Chief Complaint: Abdominal Pain Stated Complaint: SOB, Pancreas Pain Time Seen by Provider: 07/01/18 11:50 Source: patient Mode of arrival: ambulatory Limitations: no limitations - History of Present Illness HPI Narrative: 47-year-old female with known chronic pancreatitis comes in for severe belly pain nausea and diarrhea since yesterday. Apparently she took some alcohol yesterday-she has been previously advised not to because of her history of pancreatitis and cirrhosis. Anyways today pain was so severe she could not manage at home. She does have a G-tube for nutrition - Related Data Home Medications Medication Instructions Recorded Confirmed FLUoxetine HCL [Prozac] 60 mg PO DAILY 03/16/18 05/20/18 Omeprazole [Prilosec] 20 mg PO DAILY 05/20/18 05/20/18 Previous Rx's Medication Instructions Recorded Lipase/Protease/Amylase [Pancreaze 1 each PO AC #90 capsule. 03/18/18 21,000 Unit Cap] oxyCODONE/APAP [Percocet 5-325 mg] 1 tab PO Q4H PRN #20 tab 04/29/18 Allergies Allergy/AdvReac Type Severity Reaction Status Date / Time morphine AdvReac Mild Itching Verified 05/20/18 21:06 Review of Systems All systems ED: reviewed and negative except as stated. Abdominal Pain PMH - Past Medical History Attestation: Yes: The following information was validated with the patient. Medical history: Reports: asthma, COPD, GERD (Peptic ulcer disease), liver disease, other (Cirrhosis, pancreatitis with pseudocysts) Surgical history ED: Reports: other (G-tube) Psychiatric history: Reports: anxiety, depression Family history: Reports: no significant family history - Social History Smoking status: Current every day smoker Alcohol use: Reports: Occasionally, Heavy (Heavy in the past but she states not since February) Drug use: Reports: none Physical Exam Thin/cachectic female in pain. Normocephalic atraumatic. Conjunctive are clear sclerae nonicteric. No nasal discharge or congestion. Oropharynx is pink and moist. Neck is supple without lymphadenopathy thyromegaly or carotid bruit. Heart is tachycardic. No murmur appreciated. Lungs are basically clear to auscultation bilaterally without wheezes rales rhonchi or respiratory distress. Abdomen is soft but tender especially around her G-tube in the epigastric area. I am unable to assess further secondary to the pain. No pedal edema. +2 radial pulse. Alert oriented Limitations: no limitations Course Vital Signs Temperature 98.6 F 07/01/18 11:44 Pulse Rate 135 H 07/01/18 11:44 Respiratory Rate 26 H 07/01/18 11:44 Blood Pressure 162/118 07/01/18 11:44 Pulse Oximetry (%) 96 07/01/18 11:44 Temperature 98.9 F 07/01/18 15:51 Pulse Rate 83 07/01/18 15:27 Respiratory Rate 19 07/01/18 15:27 Blood Pressure 164/102 07/01/18 15:17 Pulse Oximetry (%) 93 07/01/18 15:27 Abdominal Pain - Lab Data Lab results reviewed: Yes I reviewed the patient's lab results. Result diagrams: 07/01/18 11:56 07/01/18 11:56 Lab Results 07/01/18 07/01/18 07/01/18 Range/Units 11:56 11:56 11:56 WBC 11.9 H (4.5-11.0) K/mcL RBC 5.60 H (4.00-5.20) M/mcL Hgb 15.9 H (12.0-15.0) g/dL Hct 49.7 H (36.0-48.0) % MCV 88.8 (80.0-100.0) fL MCH 28.4 (26.0-34.0) pg MCHC 32.0 (31.0-36.0) g/dL RDW 17.1 H (11.5-14.5) % Plt Count 337 (140-440) K/mcL MPV 8.9 (7.4-10.4) fL Gran % 75.7 (38.0-78.0) % Lymph % (Auto) 17.1 (15.5-49.0) % Steele % (Auto) 6.8 (1.0-12.0) % Eos % (Auto) 0.2 (0.0-7.0) % Baso % (Auto) 0.2 (0.0-2.0) % Gran # 9.0 H (1.8-8.0) K/mcL Lymph # (Auto) 2.0 (1.5-4.8) K/mcL Steele # (Auto) 0.8 (0.1-0.9) K/mcL Eos # (Auto) 0 (0.0-0.7) K/mcL Baso # (Auto) 0 (0.0-0.3) K/mcL VBG Lactic Acid (0.5-2.0) mmol/L Sodium 132 L (133-145) mmol/L Potassium 3.8 (3.3-5.1) mmol/L Chloride 94 L (96-108) mmol/L Carbon Dioxide 29 (22-30) mmol/L Anion Gap 9.0 (8-16) BUN 4 L (6-20) mg/dl Creatinine 0.5 L (0.6-1.1) mg/dl GFR Calculation 115 Glucose 138 H (70-105) mg/dL Calcium 9.5 (8.6-10.4) mg/dl Total Bilirubin 1.0 (0.0-1.0) mg/dL AST 37 (0-37) U/l ALT 22 (0-40) U/l Alkaline Phosphatase 160 H (39-117) U/L Total Protein 8.5 H (5.9-8.4) gm/dL Albumin 4.0 (3.2-5.2) gm/dL Globulin 4.5 H (2.2-3.7) gm/dL Albumin/Globulin Ratio 0.9 L (1.0-2.3) Amylase (28-100) U/L Lipase 47 (7-60) U/L Ethyl Alcohol < 0.010 (<0.010) gm/dl 07/01/18 07/01/18 Range/Units 11:56 12:30 WBC (4.5-11.0) K/mcL RBC (4.00-5.20) M/mcL Hgb (12.0-15.0) g/dL Hct (36.0-48.0) % MCV (80.0-100.0) fL MCH (26.0-34.0) pg MCHC (31.0-36.0) g/dL RDW (11.5-14.5) % Plt Count (140-440) K/mcL MPV (7.4-10.4) fL Gran % (38.0-78.0) % Lymph % (Auto) (15.5-49.0) % Steele % (Auto) (1.0-12.0) % Eos % (Auto) (0.0-7.0) % Baso % (Auto) (0.0-2.0) % Gran # (1.8-8.0) K/mcL Lymph # (Auto) (1.5-4.8) K/mcL Steele # (Auto) (0.1-0.9) K/mcL Eos # (Auto) (0.0-0.7) K/mcL Baso # (Auto) (0.0-0.3) K/mcL VBG Lactic Acid 1.5 (0.5-2.0) mmol/L Sodium (133-145) mmol/L Potassium (3.3-5.1) mmol/L Chloride (96-108) mmol/L Carbon Dioxide (22-30) mmol/L Anion Gap (8-16) BUN (6-20) mg/dl Creatinine (0.6-1.1) mg/dl GFR Calculation Glucose (70-105) mg/dL Calcium (8.6-10.4) mg/dl Total Bilirubin (0.0-1.0) mg/dL AST (0-37) U/l ALT (0-40) U/l Alkaline Phosphatase (39-117) U/L Total Protein (5.9-8.4) gm/dL Albumin (3.2-5.2) gm/dL Globulin (2.2-3.7) gm/dL Albumin/Globulin Ratio (1.0-2.3) Amylase 129 H (28-100) U/L Lipase (7-60) U/L Ethyl Alcohol (<0.010) gm/dl - Radiology Data Radiology results reviewed: Yes I reviewed the patient's radiology results. CT scan of the abdomen pelvis with contrast shows acute on chronic pancreatitis with a new pseudocyst. Other pseudocysts are stable. Small amount of ascites. Stable left pleural effusion - EKG Data EKG attestation: Yes I reviewed and interpreted this EKG. EKG results narrative: EKG shows a rate of 126 sinus tachycardia with left atrial enlargement. Significant artifact secondary to tremor Disposition Pt seen by [facility]/PA only: No Clinical Impression: Acute on chronic pancreatitis, Recurrent left pleural effusion Summary: After interview and exam workup ordered with CT scan and laboratory. Treatment started with Dilaudid and Zofran along with IV fluids She started developing a fever so we gave her some Tylenol. She required multiple dosings of IV pain medicine and Zofran After getting her workup back it is clear that she has acute on chronic pancreatitis. She does not believe she can manage her pain and nausea at home. I discussed the case with Dr. Parikh, hospitalist, who agreed to bring the jm rogers in for further assessment and treatment in the hospital Disposition: Xfer As Inpt ([facility]) Condition: Fair Referrals: Jenn Smith ARNP [Primary Care Provider] -
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
[2018-07-01] MEDS ORDERED: POTASSIUM CHLORIDE 20 MEQ PACKET PO PRN (17:08)
[2018-07-01] MEDS ORDERED: MAGNESIUM HYDROXIDE 30 ML ORAL.SUSP PO PRN (17:08)
[2018-07-01] MEDS ORDERED: HYDROmorphone 2 MG/ML VIAL IV PRN (17:08)
[2018-07-01] MEDS: 0.9 % SODIUM CHLORIDE 1,000 ML IV SCH (17:25)
[2018-07-01 17:49] LABS: C-Reactive Protein 5.5 mg/dl (0.0-0.8)
[2018-07-01 18:33] LABS: Appearance,Urine CLEAR; Bacteria,Urine 0 /hpf (0); Bilirubin,Urine NEG (NEG); Color,Urine YELLOW; Glucose,Urine (UA) NEGATIVE (NEG); Leukocyte Esterase,Urine NEG /uL (NEG); Mucus,Urine FEW /hpf (0); Protein,Urine 30 mg/dL (NEG); Specific Gravity,Urine 1.042 (1.000-1.035); Urine Blood NEG mg/dL (<0.03); Urine RBC 1 /hpf (0-1); Urine Squamous Epithelial Cell 2 /hpf (0-4); Urine WBC 1 /hpf (0-4); Urobilinogen,Urine NEG (NEG)
[2018-07-01] MEDS ORDERED: HYDROmorphone 2 MG/ML VIAL ONE (20:35)
[2018-07-01] MEDS: HEPARIN 5,000 UNIT/ML VIAL SQ SCH (20:41)
[2018-07-01] MEDS: SENNOSIDES/DOCUSATE SODIUM 1 TAB TABLET PO SCH (20:42)
[2018-07-01] MEDS: DOCUSATE SODIUM 100 MG CAPSULE PO SCH (20:43)
[2018-07-01] MEDS: 0.9 % SODIUM CHLORIDE 10 ML SYRINGE IV SCH (22:56)
[2018-07-02] MEDS: HYDROmorphone 2 MG/ML VIAL IV PRN ×9 (00:03→20:00)
[2018-07-02] MEDS: 0.9 % SODIUM CHLORIDE 1,000 ML IV SCH ×3 (02:58→23:17)
[2018-07-02 05:57] LABS: Mean Cell Volume 90.2 fL (80.0-100.0); Mean Corpuscular HGB Conc 32.3 g/dL (31.0-36.0); Platelet Count 231 K/mcL (140-440); RBC 3.91 M/mcL (4.00-5.20)
[2018-07-02] MEDS: 0.9 % SODIUM CHLORIDE 10 ML SYRINGE IV SCH ×3 (06:37→21:36)
[2018-07-02 06:47] LABS: ALT/SGPT 12 U/l (0-40); Albumin 2.7 gm/dL (3.2-5.2); Albumin/Globulin Ratio 0.8 (1.0-2.3); Alkaline Phosphatase 109 U/L (39-117); Bilirubin,Direct < 0.2 mg/dL (0.0-0.3); Blood Urea Nitrogen 3 mg/dl (6-20); C-Reactive Protein 7.6 mg/dl (0.0-0.8); Gamma Glutamyl Transpeptidase 139 U/L (5-36)
[2018-07-02 07:30] LABS: Anisocytosis 1+ (NONE SEEN); Band Neutrophils % 1 % (0-10); Lymphocytes % 13 % (15-49); Monocytes % (Manual) 6 % (1-12); Platelet Estimate NORMAL (NORMAL); RBC Morphology ABNORM (NORMAL); Segmented Neutrophils % 80 % (38-78)
[2018-07-02] MEDS: HEPARIN 5,000 UNIT/ML VIAL SQ SCH ×2 (08:46→21:51)
[2018-07-02] MEDS: DOCUSATE SODIUM 100 MG CAPSULE PO SCH ×2 (09:22→21:34)
--- NOTE | 2018-07-02 11:01 | Internal Med Progress Note ---
Medical - PN: Subj Patient information: Note initiated : 07/02/18 at 10:57 am Service Date, if different from initiated Date: [] Patient: Jaleesa Harrison a 47 y/o F admitted on 07/01/18 for SOB, Pancreas Pain. Chief Complaint: [] Interval history: Ms. Harrison is a 47 year old F with a known history of alcoholic cirrhosis with recurrent alcoholic pancreatitis with multiple pseudocysts. She recently had pseudocyst drained at [place] by Dr. Asher. Patient has had intermittent episodes of acute pancreatitis flare as she continues to drink. She was due for cystogastrostomy drainage procedure at [place] on July 15. She has been doing well since the last admission a month ago. She however started drinking and now presents with worsening abdominal pain, nausea and this started in the last 24 hours after most recent alcohol intake. Initial workup in the ER was consistent with acute and chronic pancreatitis with a new pseudocyst formation 2.3 cm alongside to existing pseudocysts largest being [address] Patient was started on crystalloids along with pain medication. Hospitalist service was consulted for admission. At the time of evaluation patient is in significant distress requiring IV opioids for pain control. She denies fever chills but endorses to epigastric pain radiating to the back. She has associated nausea but denies diarrhea or bloody stools. 07/02-patient experiencing significant pain currently on Dilaudid every 2 hour. Nothing by mouth with bowel rest and antiemetics. No overnight hemodynamic changes. No additional concerns per staff. Discussed abstinence from alcohol and patient. We'll continue monitoring for signs of hemodynamic compromise/fever which mandated transfer to tertiary Center. - Constitutional Vitals: Vital Signs Temp Pulse Resp BP Pulse Ox 98.1 F 80 18 132/78 93 07/02/18 07:25 07/02/18 07:27 07/02/18 07:27 07/02/18 07:25 07/02/18 07:27 Period Temp Pulse Resp BP Sys/Castaneda Pulse Ox Last 24 Hr 98.1 F-99.9 F 79-135 16-29 108-185/78-131 90-96 Intake and Output 07/01/18 07/02/18 07/02/18 21:59 05:59 13:59 Intake Total 2000 955 Output Total 650 700 Balance 1350 255 Weight 118 lb Intake & Output: Intake & Output 07/01/18 07/02/18 07/02/18 21:59 05:59 13:59 Intake Total 1999 955 Output Total 650 700 Balance 1350 255 Weight 118 lb Intake: IV 1999 955 Sodium Chloride 0.9% 1,000 ml @ 1999 955 100 mls/hr IV .Q10H IVANIA Rx#: [id number] Oral 0 0 Output: Void Amount 650 700 Other: Meal Dinner Percent of Meal Consumed npo Urine Appearance Clear Urine Color Dark Jaz Urine Odor Strong # Voids 0 General appearance: moderate distress (abdominal pain) Exam: Alert oriented Very anxious and distressed from pain Nonlabored breathing Diminished bowel sounds Medical - PN: Obj Da - Labs CBC & Chem 7: 07/02/18 04:43 07/02/18 04:43 Labs: Abnormal Lab Results 07/02/18 07/02/18 07/01/18 04:43 04:43 17:34 WBC RBC 3.91 L Hgb 11.4 L Hct 35.3 L RDW 17.0 H Gran # Seg Neutrophils % 80 H Lymphocytes % 13 L RBC Morphology Abnorm A Anisocytosis 1+ A Sodium Chloride Anion Gap 7.0 L BUN 3 L Creatinine 0.3 L Glucose Uric Acid 2.0 L Calcium 7.9 L Phosphorus 2.1 L GGT 139 H Alkaline Phosphatase C-Reactive Protein 7.6 H Total Protein Albumin 2.7 L Globulin Albumin/Globulin Ratio 0.8 L Amylase Ur Specific Josephine 1.042 H Urine Protein 30 A 07/01/18 07/01/18 07/01/18 17:08 11:56 11:56 WBC RBC Hgb Hct RDW Gran # Seg Neutrophils % Lymphocytes % RBC Morphology Anisocytosis Sodium 132 L Chloride 94 L Anion Gap BUN 4 L Creatinine 0.5 L Glucose 138 H Uric Acid Calcium Phosphorus GGT Alkaline Phosphatase 160 H C-Reactive Protein 5.5 H Total Protein 8.5 H Albumin Globulin 4.5 H Albumin/Globulin Ratio 0.9 L Amylase 129 H Ur Specific Josephine Urine Protein 07/01/18 11:56 WBC 11.9 H RBC 5.60 H Hgb 15.9 H Hct 49.7 H RDW 17.1 H Gran # 9.0 H Seg Neutrophils % Lymphocytes % RBC Morphology Anisocytosis Sodium Chloride Anion Gap BUN Creatinine Glucose Uric Acid Calcium Phosphorus GGT Alkaline Phosphatase C-Reactive Protein Total Protein Albumin Globulin Albumin/Globulin Ratio Amylase Ur Specific Josephine Urine Protein Meds: Medications Docusate Sodium (Colace) 100 mg PO BID [facility] Last Admin: 07/02/18 09:22 Dose: Not Given Documented by: Heparin Sodium (Porcine) (Heparin) 5,000 unit SQ Q12 [facility] Last Admin: 07/02/18 08:46 Dose: 5,000 unit Documented by: Hydromorphone HCl (Dilaudid) 0 mg IV Q2HP PRN PRN Reason: PAIN LEVEL > 6 Last Admin: 07/02/18 10:49 Dose: 0.5 mg Documented by: Magnesium Sulfate (Magnesium Sulfate) 2 gm in 50 mls @ 50 mls/hr IV UD PRN PRN Reason: MG = or < 1.7 Sodium Chloride (Sodium Chloride 0.9%) 1,000 mls @ 100 mls/hr IV .Q10H [facility] Last Admin: 07/02/18 02:58 Dose: 100 mls/hr Documented by: Acetaminophen (Ofirmev) 1,000 mg in 100 mls @ 200 mls/hr IV Q12HP PRN PRN Reason: PAIN/FEVER > 101 Magnesium Hydroxide (Milk Of Magnesia) 30 ml PO HSP PRN PRN Reason: Constipation Ondansetron HCl (Zofran) 4 mg IV Q4-6HP PRN PRN Reason: Nausea And Vomiting Potassium Chloride (Klor-Con) 40 meq PO DAILYP PRN PRN Reason: K+ < 3.5 Senna/Docusate Sodium (Senna Plus Tablet) 1 tab PO HS [facility] Last Admin: 07/01/18 20:42 Dose: Not Given Documented by: Sodium Chloride (Saline Flush) 10 ml IV Q8 [facility] Last Admin: 07/02/18 06:37 Dose: Not Given Documented by: Medical - PN: A/P - Time Spent With Patient Total time spent is greater than 50% in coordination of care (as documented) at patient's floor/unit and/or counseling patient: 25 - 35 minutes (1) Acute on chronic pancreatitis Status: Acute Assessment and plan: * Acute on chronic alcoholic pancreatitis with 2 prior pseudocyst and new pseudocyst 2.[address] abdomen. Continue conservative management with bowel rest/crystalloids and pain medication. If clinically deteriora seven/fever/worsening abdominal pain will need repeat CT and possible transfer to tertiary Center. Patient recently underwent endoscopy drainage at [place]. Patient is due to follow-up with Dr. Asher on July 15 for for endoscopy cystogastrostomy. * Abdominal pain -continue IV opioids as indicated * History of alcohol dependence -monitor for alcohol withdrawal. Counseled for alcohol cessation * Tobacco dependence -start nicotine patch * alcoholic cirrhosis with ascites-stable synthetic function. Limit acetaminophen use to less than 2 g a day * Prophylaxis heparin * Full code Plan * Continue bowel rest/antiemetics/analgesics and crystalloids * As needed IV opioids * If signs of hemodynamic instability/fever/worsening abdominal pain , then repeat CT and transferred tertiary Center Current Visit: Yes
[2018-07-02] MEDS: ONDANSETRON 4 MG/2 ML VIAL IV PRN (15:46)
--- NOTE | 2018-07-02 15:46 | Internal Med Progress Note ---
Medical - PN: Subj Patient information: Note initiated : 07/02/18 at 3:43 pm Service Date, if different from initiated Date: [] Patient: Jaleesa Harrison a 47 y/o F admitted on 07/01/18 for SOB, Pancreas Pain. Chief Complaint: [] Interval history: Ms. Harrison is a 47 year old F with a known history of alcoholic cirrhosis with recurrent alcoholic pancreatitis with multiple pseudocysts. She recently had pseudocyst drained at [place] by Dr. Asher. Patient has had intermittent episodes of acute pancreatitis flare as she continues to drink. She was due for cystogastrostomy drainage procedure at [facility] on July 15. She has been doing well since the last admission a month ago. She however started drinking and now presents with worsening abdominal pain, nausea and this started in the last 24 hours after most recent alcohol intake. Initial workup in the ER was consistent with acute and chronic pancreatitis with a new pseudocyst formation 2.3 cm alongside to existing pseudocysts largest being [address] Patient was started on crystalloids along with pain medication. Hospitalist service was consulted for admission. At the time of evaluation patient is in significant distress requiring IV opioids for pain control. She denies fever chills but endorses to epigastric pain radiating to the back. She has associated nausea but denies diarrhea or bloody stools. 07/02-patient experiencing significant pain currently on Dilaudid every 2 hour. Nothing by mouth with bowel rest and antiemetics. No overnight hemodynamic changes. No additional concerns per staff. Discussed abstinence from alcohol and patient. We'll continue monitoring for signs of hemodynamic compromise/fever which mandated transfer to tertiary Center. 07/03 Still has abdominal pain. But is desiring liquid diet. Tolerated liquid drink just fine. Has a cough which she has had for several weeks occasionally productive of white clear sputum feels a little wheezy. Occasional nausea. Review of Systems: denies headache/fever/chills/vomiting/chest pain/dyspnea. Others as above - Constitutional Vitals: Vital Signs Temp Pulse Resp BP Pulse Ox 98.2 F 71 14 147/79 93 07/02/18 11:00 07/02/18 11:00 07/02/18 11:00 07/02/18 11:00 07/02/18 11:00 Period Temp Pulse Resp BP Sys/Castaneda Pulse Ox Last 24 Hr 98.1 F-99.9 F 71-98 14-29 108-185/78-102 90-94 Intake and Output 07/02/18 07/02/18 07/02/18 05:59 13:59 21:59 Intake Total 955 1000 Output Total 700 22 Balance 255 978 Weight 53.524 kg Patient Weight 07/03/18 05:59 Weight 53.524 kg Intake & Output: Intake & Output 07/02/18 07/02/18 07/02/18 05:59 13:59 21:59 Intake Total 955 1000 Output Total 700 22 Balance 255 978 Weight 53.524 kg Intake: IV 955 1000 Sodium Chloride 0.9% 1,000 ml @ 955 1000 100 mls/hr IV .Q10H IVANIA Rx#: [id number] Oral 0 Output: Void Amount 700 22 Other: Urine Appearance Clear Urine Color Dark Jaz Dark Jaz Urine Odor Strong Foul # Voids 0 1 Exam: General: Alert, Awake, No acute Distress Eyes/N/T: EOMI, Head/Neck: neck supple, CV: RRR, No murmurs, normal s1/s2 Pulm: Mild rales right base, no wheezing, left clear Abd: Tender to palpation throughout but mostly on the left upper quadrant and epigastric, +bowel sounds Ext: no clubbing/cyanosis/edema Neuro: Alert, no focal deficits, moves all extremities, Skin: warm/dry Medical - PN: Obj Da - Labs CBC & Chem 7: 07/03/18 05:11 07/03/18 05:11 Labs: Abnormal Lab Results 07/02/18 07/02/18 07/01/18 04:43 04:43 17:34 WBC RBC 3.91 L Hgb 11.4 L Hct 35.3 L RDW 17.0 H Gran # Seg Neutrophils % 80 H Lymphocytes % 13 L RBC Morphology Abnorm A Anisocytosis 1+ A Sodium Chloride Anion Gap 7.0 L BUN 3 L Creatinine 0.3 L Glucose Uric Acid 2.0 L Calcium 7.9 L Phosphorus 2.1 L GGT 139 H Alkaline Phosphatase C-Reactive Protein 7.6 H Total Protein Albumin 2.7 L Globulin Albumin/Globulin Ratio 0.8 L Amylase Ur Specific [place] 1.042 H Urine Protein 30 A 07/01/18 07/01/1819 17:08 11:56 11:56 WBC RBC Hgb Hct RDW Gran # Seg Neutrophils % Lymphocytes % RBC Morphology Anisocytosis Sodium 132 L Chloride 94 L Anion Gap BUN 4 L Creatinine 0.5 L Glucose 138 H Uric Acid Calcium Phosphorus GGT Alkaline Phosphatase 160 H C-Reactive Protein 5.5 H Total Protein 8.5 H Albumin Globulin 4.5 H Albumin/Globulin Ratio 0.9 L Amylase 129 H Ur Specific [place] Urine Protein 07/01/18 11:56 WBC 11.9 H RBC 5.60 H Hgb 15.9 H Hct 49.7 H RDW 17.1 H Gran # 9.0 H Seg Neutrophils % Lymphocytes % RBC Morphology Anisocytosis Sodium Chloride Anion Gap BUN Creatinine Glucose Uric Acid Calcium Phosphorus GGT Alkaline Phosphatase C-Reactive Protein Total Protein Albumin Globulin Albumin/Globulin Ratio Amylase Ur Specific [place] Urine Protein Meds: Medications Docusate Sodium (Colace) 100 mg PO BID [facility] Last Admin: 07/02/18 09:22 Dose: Not Given Documented by: Heparin Sodium (Porcine) (Heparin) 5,000 unit SQ Q12 [facility] Last Admin: 07/02/18 08:46 Dose: 5,000 unit Documented by: Hydromorphone HCl (Dilaudid) 0 mg IV Q2HP PRN PRN Reason: PAIN LEVEL > 6 Last Admin: 07/02/18 15:29 Dose: 0.5 mg Documented by: Magnesium Sulfate (Magnesium Sulfate) 2 gm in 50 mls @ 50 mls/hr IV UD PRN PRN Reason: MG = or < 1.7 Sodium Chloride (Sodium Chloride 0.9%) 1,000 mls @ 100 mls/hr IV .Q10H [facility] Last Admin: 07/02/18 13:13 Dose: 100 mls/hr Documented by: Acetaminophen (Ofirmev) 1,000 mg in 100 mls @ 200 mls/hr IV Q12HP PRN PRN Reason: PAIN/FEVER > 101 Magnesium Hydroxide (Milk Of Magnesia) 30 ml PO HSP PRN PRN Reason: Constipation Ondansetron HCl (Zofran) 4 mg IV Q4-6HP PRN PRN Reason: Nausea And Vomiting Potassium Chloride (Klor-Con) 40 meq PO DAILYP PRN PRN Reason: K+ < 3.5 Senna/Docusate Sodium (Senna Plus Tablet) 1 tab PO HS [facility] Last Admin: 07/01/18 20:42 Dose: Not Given Documented by: Sodium Chloride (Saline Flush) 10 ml IV Q8 [facility] Last Admin: 07/02/18 13:39 Dose: Not Given Documented by: Medical - PN: A/P - Time Spent With Patient Total time spent is greater than 50% in coordination of care (as documented) at patient's floor/unit and/or counseling patient: - Narrative A/P Narrative: A: *Acute on chronic pancreatitis w/pseudocysts (new one this admit): -Recently underwent endoscopy drainage at [place], due for f/u with Dr. Asher 07/15 for endoscopy cystogastrostomy. -CT a/p pancreatitis and new pseudocyst 2.3 cm *Abdominal pain: 2/2 above, new pseudocyst anterior retrogastric region + likely from ascites -continues about the same *Alcohol abuse: had several drinks last week *Tobacco abuse: *Depression: *Cirrhosis, alcohol induced, with ascites: * P: -IV fluid's decrease and start clears -If clinically deteriorates/fever/worsening abdominal pain will need repeat CT and possible transfer to tertiary Center. Patient recently underwent endoscopy drainage at [place]. Patient is due to follow-up with Dr. Asher on July 15 for for endoscopy cystogastrostomy. -Pain regimen -paracentesis -Smoking cessation counseling -education on low fat diet -ppx: heparin full code
[2018-07-02] MEDS: ACETAMINOPHEN 1,000 MG/100 ML BOTTLE IV PRN (20:01)
[2018-07-02] MEDS: SENNOSIDES/DOCUSATE SODIUM 1 TAB TABLET PO SCH (21:34)
[2018-07-03] MEDS: HYDROmorphone 2 MG/ML VIAL IV PRN ×8 (01:30→22:29)
[2018-07-03] MEDS: 0.9 % SODIUM CHLORIDE 10 ML SYRINGE IV SCH ×4 (06:14→22:29)
[2018-07-03] MEDS: ONDANSETRON 4 MG/2 ML VIAL IV PRN ×2 (06:47→19:32)
[2018-07-03 07:13] LABS: Mean Cell Volume 90.3 fL (80.0-100.0); Platelet Count 228 K/mcL (140-440); RBC 3.77 M/mcL (4.00-5.20); Red Cell Distribution Width 16.9 % (11.5-14.5)
[2018-07-03 07:24] LABS: ALT/SGPT 11 U/l (0-40); Albumin 2.5 gm/dL (3.2-5.2); Albumin/Globulin Ratio 0.8 (1.0-2.3); Alkaline Phosphatase 116 U/L (39-117); Bilirubin,Direct < 0.2 mg/dL (0.0-0.3); Blood Urea Nitrogen 4 mg/dl (6-20); Gamma Glutamyl Transpeptidase 145 U/L (5-36); Uric Acid 2.5 mg/dL (2.5-8.0)
[2018-07-03 07:58] LABS: Anisocytosis 1+ (NONE SEEN); Band Neutrophils % 2 % (0-10); Eosinophils % (Manual) 4 % (0-7); Lymphocytes % 15 % (15-49); Monocytes % (Manual) 3 % (1-12); Platelet Estimate NORMAL (NORMAL); RBC Morphology ABNORM (NORMAL); Segmented Neutrophils % 76 % (38-78)
[2018-07-03] MEDS: HEPARIN 5,000 UNIT/ML VIAL SQ SCH ×2 (09:08→20:35)
[2018-07-03] MEDS: DOCUSATE SODIUM 100 MG CAPSULE PO SCH ×2 (09:10→20:35)
[2018-07-03] MEDS: 0.9 % SODIUM CHLORIDE 1,000 ML IV SCH (09:17)
[2018-07-03] MEDS ORDERED: IPRATROPIUM/ALBUTEROL 3 ML AMPUL.NEB NEB ONE (10:55)
[2018-07-03] MEDS ORDERED: IPRATROPIUM/ALBUTEROL 3 ML AMPUL.NEB NEB PRN (10:55)
--- NOTE | 2018-07-03 12:09 | XRay Report ---
CLINICAL INFORMATION: cough COMPARISON: 04/12/2018 FINDINGS: Heart size, mediastinum and pulmonary vessels are normal. Moderate left pleural effusion has developed with compressive atelectasis of the inferior left lower lobe and lingula. Minor atelectasis in the right base. IMPRESSION: Moderate left pleural effusion with compressive atelectasis in the inferior left lower lobe and lingula. Interpreted and Authenticated by: Ernesto Gomes 07/03/18
[2018-07-03] MEDS: ACETAMINOPHEN 1,000 MG/100 ML BOTTLE IV PRN (12:24)
[2018-07-03] MEDS: MAGNESIUM SULFATE 2 GM/50 ML BAG IV PRN (14:50)
--- NOTE | 2018-07-03 17:37 | Ultrasound Report ---
CLINICAL INFORMATION: ? Evaluate for ascites COMPARISON: None. FINDINGS: Only a small amount of ascites was appreciated which was felt inadequate to safely perform paracentesis. IMPRESSION: Small amount of ascites Interpreted and Authenticated by: Ernesto Gomes 07/03/18
[2018-07-03] MEDS: SENNOSIDES/DOCUSATE SODIUM 1 TAB TABLET PO SCH (20:35)
[2018-07-03] MEDS: CHLORHEXIDINE GLUCONATE 1 ML ORAL.SOL SWABMOUTH SCH (20:36)
[2018-07-04] MEDS: 0.9 % SODIUM CHLORIDE 10 ML SYRINGE IV SCH ×7 (01:09→20:11)
[2018-07-04] MEDS: HYDROmorphone 2 MG/ML VIAL IV PRN ×9 (01:09→22:48)
[2018-07-04 06:31] LABS: Basophils # (Auto) 0 K/mcL (0.0-0.3); Basophils % (Auto) 0.3 % (0.0-2.0); Eosinophils # (Auto) 0.1 K/mcL (0.0-0.7); Eosinophils % (Auto) 1.7 % (0.0-7.0); Granulocytes % (Auto) 69.1 % (38.0-78.0); Lymphocytes # (Auto) 1.2 K/mcL (1.5-4.8); Lymphocytes % (Auto) 19.9 % (15.5-49.0); Mean Cell Volume 90.3 fL (80.0-100.0); Monocytes # (Auto) 0.5 K/mcL (0.1-0.9); Platelet Count 248 K/mcL (140-440); RBC 3.87 M/mcL (4.00-5.20); Red Cell Distribution Width 16.9 % (11.5-14.5)
[2018-07-04 07:00] LABS: ALT/SGPT 10 U/l (0-40); Albumin 2.6 gm/dL (3.2-5.2); Albumin/Globulin Ratio 0.7 (1.0-2.3); Alkaline Phosphatase 123 U/L (39-117); Bilirubin,Direct < 0.2 mg/dL (0.0-0.3); Blood Urea Nitrogen 3 mg/dl (6-20); Gamma Glutamyl Transpeptidase 151 U/L (5-36); Uric Acid 2.3 mg/dL (2.5-8.0)
--- NOTE | 2018-07-04 07:29 | Internal Med Progress Note ---
Medical - PN: Subj Patient information: Note initiated : 07/04/18 at 7:27 am Service Date, if different from initiated Date: [] Patient: Jaleesa Harrison a 47 y/o F admitted on 07/01/18 for SOB, Pancreas Pain. Chief Complaint: [] Interval history: Ms. Harrison is a 47 year old F with a known history of alcoholic cirrhosis with recurrent alcoholic pancreatitis with multiple pseudocysts. She recently had pseudocyst drained at [place] by Dr. Asher. Patient has had intermittent episodes of acute pancreatitis flare as she continues to drink. She was due for cystogastrostomy drainage procedure at [place] on July 15. She has been doing well since the last admission a month ago. She however started drinking and now presents with worsening abdominal pain, nausea and this started in the last 24 hours after most recent alcohol intake. Initial workup in the ER was consistent with acute and chronic pancreatitis with a new pseudocyst formation 2.3 cm alongside to existing pseudocysts largest being [address] Patient was started on crystalloids along with pain medication. Hospitalist service was consulted for admission. At the time of evaluation patient is in significant distress requiring IV opioids for pain control. She denies fever chills but endorses to epigastric pain radiating to the back. She has associated nausea but denies diarrhea or bloody stools. 07/02-patient experiencing significant pain currently on Dilaudid every 2 hour. Nothing by mouth with bowel rest and antiemetics. No overnight hemodynamic changes. No additional concerns per staff. Discussed abstinence from alcohol and patient. We'll continue monitoring for signs of hemodynamic compromise/fever which mandated transfer to tertiary Center. 07/03 Still has abdominal pain. But is desiring liquid diet. Tolerated liquid drink just fine. Has a cough which she has had for several weeks occasionally productive of white clear sputum feels a little wheezy. Occasional nausea. 07/04 Slept okay. Still having abdominal pain which she says is unchanged from yesterday. Tolerating clear liquid diet. Tube feeds via her J-tube started yesterday , has appetite. Occasional nausea. Review of Systems: denies headache/fever/chills/vomiting/chest pain/dyspnea. Others as above - Constitutional Vitals: Vital Signs Temp Pulse Resp BP Pulse Ox 99.4 F H 68 16 158/92 95 07/04/18 04:00 07/04/18 04:00 07/04/18 04:00 07/04/18 04:00 07/04/18 04:00 Period Temp Pulse Resp BP Sys/Castaneda Pulse Ox Last 24 Hr 97.6 F-99.9 F 68-88 16-22 136-163/74-94 93-98 Intake and Output 07/03/18 07/04/18 07/04/18 21:59 05:59 13:59 Intake Total 610 452 Output Total 925 800 Balance -315 -348 Weight 49.305 kg Intake & Output: Intake & Output 07/03/18 07/04/18 07/04/18 21:59 05:59 13:59 Intake Total 610 452 Output Total 925 800 Balance -315 -348 Weight 49.305 kg Intake: IV 50 Oral 500 200 Tube Feeding 132 GI Tube Flush 60 120 Output: Void Amount 925 800 Other: Urine Appearance Clear Clear Urine Color Dark Yellow Dark Yellow Exam: General: Alert, Awake, No acute Distress Eyes/N/T: EOMI, Head/Neck: neck supple, CV: RRR, No murmurs, normal s1/s2 Pulm: Mild rales right base, no wheezing, left clear Abd: Tender to palpation epigastric and RUQ same as yesterday, +bowel sounds Ext: no clubbing/cyanosis/edema Neuro: Alert, no focal deficits, moves all extremities, Skin: warm/dry Medical - PN: Obj Da - Labs CBC & Chem 7: 07/04/18 04:43 07/04/18 04:43 Labs: Abnormal Lab Results 07/04/18 07/04/18 07/03/18 04:43 04:43 13:13 WBC RBC 3.87 L Hgb 11.2 L Hct 34.9 L RDW 16.9 H Gran # Lymph # (Auto) 1.2 L Seg Neutrophils % Lymphocytes % Nucleated RBCs RBC Morphology Anisocytosis Sodium Chloride Carbon Dioxide Anion Gap BUN 3 L Creatinine 0.2 L Glucose 107 H Uric Acid 2.3 L Calcium 8.5 L Phosphorus GGT 151 H Alkaline Phosphatase 123 H C-Reactive Protein Total Protein Albumin 2.6 L Globulin Albumin/Globulin Ratio 0.7 L Prealbumin 17.0 L Amylase Ur Specific [place] Urine Protein 07/03/18 07/03/18 07/02/18 05:11 05:11 04:43 WBC RBC 3.77 L Hgb 10.9 L Hct 34.1 L RDW 16.9 H Gran # Lymph # (Auto) Seg Neutrophils % Lymphocytes % Nucleated RBCs 1 H RBC Morphology Abnorm A Anisocytosis 1+ A Sodium Chloride Carbon Dioxide 21 L Anion Gap 7.0 L BUN 4 L 3 L Creatinine 0.4 L 0.3 L Glucose Uric Acid 2.0 L Calcium 8.1 L 7.9 L Phosphorus 2.1 L GGT 145 H 139 H Alkaline Phosphatase C-Reactive Protein 7.0 H 7.6 H Total Protein 5.8 L Albumin 2.5 L 2.7 L Globulin Albumin/Globulin Ratio 0.8 L 0.8 L Prealbumin Amylase Ur Specific [place] Urine Protein 07/02/18 07/01/18 07/01/18 04:43 17:34 17:08 WBC RBC 3.91 L Hgb 11.4 L Hct 35.3 L RDW 17.0 H Gran # Lymph # (Auto) Seg Neutrophils % 80 H Lymphocytes % 13 L Nucleated RBCs RBC Morphology Abnorm A Anisocytosis 1+ A Sodium Chloride Carbon Dioxide Anion Gap BUN Creatinine Glucose Uric Acid Calcium Phosphorus GGT Alkaline Phosphatase C-Reactive Protein 5.5 H Total Protein Albumin Globulin Albumin/Globulin Ratio Prealbumin Amylase Ur Specific [place] 1.042 H Urine Protein 30 A 07/01/18 07/01/18 07/01/18 11:56 11:56 11:56 WBC 11.9 H RBC 5.60 H Hgb 15.9 H Hct 49.7 H RDW 17.1 H Gran # 9.0 H Lymph # (Auto) Seg Neutrophils % Lymphocytes % Nucleated RBCs RBC Morphology Anisocytosis Sodium 132 L Chloride 94 L Carbon Dioxide Anion Gap BUN 4 L Creatinine 0.5 L Glucose 138 H Uric Acid Calcium Phosphorus GGT Alkaline Phosphatase 160 H C-Reactive Protein Total Protein 8.5 H Albumin Globulin 4.5 H Albumin/Globulin Ratio 0.9 L Prealbumin Amylase 129 H Ur Specific [place] Urine Protein Meds: Medications Albuterol/Ipratropium (Duoneb) 3 ml NEB Q6HP PRN PRN Reason: Shortness Of Breath Chlorhexidine Gluconate (Peridex) 15 ml SWABMOUTH BID [facility] Last Admin: 07/03/18 20:36 Dose: 15 ml Documented by: Docusate Sodium (Colace) 100 mg PO BID [facility] Last Admin: 07/03/18 20:35 Dose: 100 mg Documented by: Heparin Sodium (Porcine) (Heparin) 5,000 unit SQ Q12 [facility] Last Admin: 07/03/18 20:35 Dose: 5,000 unit Documented by: Hydromorphone HCl (Dilaudid) 0.25 - 0.5 mg IV Q2HP PRN PRN Reason: PAIN LEVEL > 6 Last Admin: 07/04/18 05:39 Dose: 0.5 mg Documented by: Magnesium Sulfate (Magnesium Sulfate) 2 gm in 50 mls @ 50 mls/hr IV UD PRN PRN Reason: MG = or < 1.7 Last Infusion: 07/03/18 15:57 Dose: Infused Documented by: Acetaminophen (Ofirmev) 1,000 mg in 100 mls @ 200 mls/hr IV Q12HP PRN PRN Reason: PAIN/FEVER > 101 Last Infusion: 07/03/18 13:00 Dose: Infused Documented by: Magnesium Hydroxide (Milk Of Magnesia) 30 ml PO HSP PRN PRN Reason: Constipation Ondansetron HCl (Zofran) 4 mg IV Q4-6HP PRN PRN Reason: Nausea And Vomiting Last Admin: 07/03/18 19:32 Dose: 4 mg Documented by: Potassium Chloride (Klor-Con) 40 meq PO DAILYP PRN PRN Reason: K+ < 3.5 Senna/Docusate Sodium (Senna Plus Tablet) 1 tab PO HS [facility] Last Admin: 07/03/18 20:35 Dose: 1 tab Documented by: Sodium Chloride (Saline Flush) 10 ml IV Q8 [facility] Last Admin: 07/04/18 05:40 Dose: 10 ml Documented by: Medical - PN: A/P - Time Spent With Patient Total time spent is greater than 50% in coordination of care (as documented) at patient's floor/unit and/or counseling patient: - Narrative A/P Narrative: A: *Acute on chronic pancreatitis w/pseudocysts (new one this admit): -Recently underwent endoscopy drainage at [place], due for f/u with Dr. Asher 07/15 for endoscopy cystogastrostomy. -CT a/p pancreatitis and new pseudocyst 2.3 cm *Abdominal pain: 2/2 above, new pseudocyst anterior retrogastric region + likely from ascites -continues about the same *Alcohol abuse: had several drinks last week *Tobacco abuse: *Depression: *Cirrhosis, alcohol induced, minimal ascites on u/s: * P: -IV fluid's finished -dietary consult, TF's -If clinically deteriorates/fever/worsening abdominal pain will need repeat CT and possible transfer to tertiary Center. Patient recently underwent endoscopy drainage at [place]. Patient is due to follow-up with Dr. Asher on July 15 for for endoscopy cystogastrostomy. -d/w dr. Asher today -Pain regimen -Smoking cessation counseling -education on low fat diet -ppx: heparin full code
[2018-07-04] MEDS: HEPARIN 5,000 UNIT/ML VIAL SQ SCH ×2 (09:18→20:11)
[2018-07-04] MEDS: DOCUSATE SODIUM 100 MG CAPSULE PO SCH ×2 (09:18→20:13)
[2018-07-04] MEDS: MAGNESIUM SULFATE 2 GM/50 ML BAG IV PRN (10:07)
[2018-07-04] MEDS: CHLORHEXIDINE GLUCONATE 1 ML ORAL.SOL SWABMOUTH SCH ×2 (10:12→20:11)
[2018-07-04] MEDS ORDERED: IOPAMIDOL 100 ML BOTTLE IV ONE (11:18)
[2018-07-04] MEDS: LIPASE/PROTEASE/AMYLASE 1 CAP CAPSULE PO SCH ×2 (12:32→17:11)
--- NOTE | 2018-07-04 13:09 | Cat Scan Report ---
CLINICAL INFORMATION: Acute upon chronic pancreatitis COMPARISON: Abdomen pelvic CT three days prior 07/01/2018. TECHNIQUE: Following enteric contrast, 80 cc of Isovue-300 were injected intravenously, and 60 seconds later, 0.625 mm helical slices were obtained from the mid heart through the subtrochanteric regions. Following reconstruction, 2.5 mm sagittal, coronal and axial reformatted images were processed and reviewed at bone, lung and soft tissue windows. Five minutes later, 0.625 mm helical slices were obtained from the mid heart through the kidneys and viewed at soft tissue windows.The exam was performed using radiation dose optimization techniques including, but not limited to, automated exposure control, adjustment of the mA and/or kV according to patient size and use of iterative reconstruction technique. FINDINGS: Moderate left pleural effusion has worsened slightly with compressive subsegmental atelectasis in the posterior left lower lobe. Small right pleural effusion is new with compressive subsegmental atelectasis posterior right lower lobe. The heart is normal in size configuration. Imaging through the abdomen show the gallbladder is surgically absent. Intrahepatic and common bile ducts are normal caliber: CBD is 5 mm. The liver shows mild fatty change, but no focal hepatic lesion. Pancreas diminutive and contains multiple calcifications compatible with chronic pancreatitis. Mild parenchymal inflammation and inflammation in the peripancreatic fat planes compatible with a acute inflammatory component. The 5 cm pseudocyst originating from the pancreatic tail extending into the retrogastric region is unchanged spanning 5 cm. The second retrogastric pseudocyst, more anteriorly, is also unchanged. It is approximately 2.3 cm. Small amount of ascites in the perisplenic region is unchanged. Ascites in the deep true pelvis is decreased caliber. Both kidneys, adrenal glands, spleen and aorta are unremarkable. No free air or adenopathy. Stomach, small large bowel are symmetrically dilated compatible with mild ileus. Images of the pelvis the urinary bladder to be normal. Normal-appearing retroflexed uterus seen as before. Bone windows show no osseous abnormality IMPRESSION: 1. Acute on chronic pancreatitis. The pancreas is diminutive with multiple calcifications compatible with chronic inflammation. Mild inflammation of the pancreatic parenchyma and peripancreatic fat planes is unchanged. 5 cm pseudocyst of pancreatic tail and a 13 mm cyst more anteriorly in the retrogastric region are stable. Upper abdomen ascites, predominantly in the left upper quadrant perisplenic region, is unchanged. The volume of ascites in the true pelvis has decreased however. 2. Moderate left and small right pleural effusion increasing. Interpreted and Authenticated by: Ernesto Gomes 07/04/18
--- NOTE | 2018-07-04 14:42 | Discharge Summary ---
Medical - DS: Prov Patient information: Note initiated : 07/04/18 at 2:39 pm Service Date, if different from initiated Date: [] Patient: Jaleesa Harrison 47 y/o F admitted on 07/01/18 for SOB, Pancreas Pain. Chief Complaint: [] Date of admission: 07/01/18 17:01 Discharge date: 07/05/18 Primary care physician: Jenn Smith Consults: 07/01/18 Consult to Physician [CONS] Stat Comment: Consulting Provider: Jules Chairez Reason For Exam: Physician to Consult Medical - DS: Meds - Discharge Medications Active and Home Medications: Home Medications FLUoxetine HCL [Prozac] 60 mg PO DAILY 03/16/18 [History Confirmed 07/01/18 Last Taken 06/17/18 08:00] Omeprazole [Prilosec] 20 mg PO DAILY 05/20/18 [History Confirmed 07/01/18 Last Taken 06/30/18 07:00] Buprenorphine HCl/Naloxone HCl [Buprenorphin-Naloxon 8-2 mg Sl] 0.5 tab SL Q12 07/01/18 [History Confirmed 07/01/18 Last Taken 06/30/18 14:00] Lipase/Protease/Amylase [Padmini Shomeaker 24,000 Units Capsule] 2 cap PO TIDCC 07/01/18 [History Confirmed 07/01/18 Last Taken 06/30/18 21:00] Ondansetron HCl [Zofran] 4 mg PO PRN PRN 07/01/18 [History Confirmed 07/01/18 Last Taken Unknown] Medical - DS: Hosp Hospital course: Mr. Harrison is a 47 year old F Ms. Harrison is a 47 year old F with a known history of alcoholic cirrhosis with recurrent alcoholic pancreatitis with multiple pseudocysts. She recently had pseudocyst drained at [facility] by Dr. Asher. Patient has had intermittent episodes of acute pancreatitis flare as she continues to drink. She was due for cystogastrostomy drainage procedure at [facility] on July 15. She has been doing well since the last admission a month ago. She however started drinking and now presents with worsening abdominal pain, nausea and this started in the last 24 hours after most recent alcohol intake. Initial workup in the ER was consistent with acute and chronic pancreatitis with a new pseudocyst formation 2.3 cm alongside to existing pseudocysts largest being [address] Patient was started on crystalloids along with pain medication. Hospitalist service was consulted for admission. At the time of evaluation patient is in significant distress requiring IV opioids for pain control. She denies fever chills but endorses to epigastric pain radiating to the back. She has associated nausea but denies diarrhea or bloody stools. 07/02-patient experiencing significant pain currently on Dilaudid every 2 hour. Nothing by mouth with bowel rest and antiemetics. No overnight hemodynamic changes. No additional concerns per staff. Discussed abstinence from alcohol and patient. We'll continue monitoring for signs of hemodynamic compromise/fever which mandated transfer to tertiary Center. 07/03 Still has abdominal pain. But is desiring liquid diet. Tolerated liquid drink just fine. Has a cough which she has had for several weeks occasionally productive of white clear sputum feels a little wheezy. Occasional nausea. 07/04 Slept okay. Still having abdominal pain which she says is unchanged from yesterday. Tolerating clear liquid diet. Tube feeds via her J-tube started yesterday , has appetite. Occasional nausea. Talked to Dr. Fields (partner of dr. Asher, who is out of town) who feels that the new cyst should not be causing the problem and felt that pain management and follow-up with Dr. Asher as scheduled on the for cyst drainage was appropriate. I suspect it is her 5cm cyst (which seems to have matured) that is giving her the problems along with drinking etoh again. Will provide pain control upon d/c and she can f/u with Dr. Asher. -If she presents back to the ED in the meantime, she should be sent directly to [facility] for definitive treatment. 07/05 Appears more comfortable this morning, counseled patient on cessation of alcohol and tobacco. Counseled on Low-Fat Diet. Patient comfortable with plan and discharge today. Patient will follow with Dr. Singleton as scheduled for procedure. Again, if patient returns and needs to be admitted she will need to be transferred to the facility of her GI specialist. Patient has been up ambulating the halls over the past couple days. Discharge diagnosis: Acute on chronic pancreatitis tobacco abuse depression cirrhosis - Time Spent with Patient Total time spent providing and/or coordinating discharge services: Greater than 30 minutes Medical - DS: Exam - Constitutional Vitals: Vital Signs Temp Pulse Resp BP BP Pulse Ox 07/04/18 12:00 98.3 F 79 12 144/86 96 07/04/18 08:00 98.3 F 18 162/90 94 07/04/18 04:00 99.4 F H 68 16 158/92 95 07/04/18 00:00 98.4 F 70 18 163/94 98 07/03/18 20:00 99.9 F H 88 20 159/89 95 07/03/18 15:54 98.6 F 75 22 136/76 93 Intake and Output 07/04/18 07/04/18 07/04/18 05:59 13:59 21:59 Intake Total 452 670 Output Total 800 1600 Balance -348 -930 Intake: Oral 200 600 Tube Feeding 132 70 GI Tube Flush 120 Output: Void Amount 800 1600 Other: Meal Lunch Percent of Meal Consumed 50% Urine Appearance Clear Clear Urine Color Dark Yellow Dark Yellow Stool Size Small Stool Consistency Liquid # Bowel Movements 1 Weight 49.305 kg Patient Weight 07/05/18 05:59 Weight 49.305 kg Medical - DS: Data Labs on day of discharge: Labs from last 24 hours 07/04/18 07/04/18 07/04/18 04:43 04:43 04:43 WBC 6.0 RBC 3.87 L Hgb 11.2 L Hct 34.9 L MCV 90.3 MCH 28.9 MCHC 32.0 RDW 16.9 H Plt Count 248 MPV 9.0 Gran % 69.1 Lymph % (Auto) 19.9 [place] % (Auto) 9.0 Eos % (Auto) 1.7 Baso % (Auto) 0.3 Gran # 4.1 Lymph # (Auto) 1.2 L [place] # (Auto) 0.5 Eos # (Auto) 0.1 Baso # (Auto) 0 Sodium 135 Potassium 3.3 Chloride 99 Carbon Dioxide 26 Anion Gap 10.0 BUN 3 L Creatinine 0.2 L GFR Calculation 156 Glucose 107 H Uric Acid 2.3 L Calcium 8.5 L Phosphorus 3.1 Magnesium 1.7 Total Bilirubin 0.5 Direct Bilirubin < 0.2 GGT 151 H AST 17 ALT 10 Alkaline Phosphatase 123 H Lactate Dehydrogenase 239 Total Protein 6.2 Albumin 2.6 L Globulin 3.6 Albumin/Globulin Ratio 0.7 L Prealbumin Triglycerides 100 Peritoneal Albumin TNP 03/14/19 13:13 WBC RBC Hgb Hct MCV MCH MCHC RDW Plt Count MPV Gran % Lymph % (Auto) [place] % (Auto) Eos % (Auto) Baso % (Auto) Gran # Lymph # (Auto) [place] # (Auto) Eos # (Auto) Baso # (Auto) Sodium Potassium Chloride Carbon Dioxide Anion Gap BUN Creatinine GFR Calculation Glucose Uric Acid Calcium Phosphorus Magnesium Total Bilirubin Direct Bilirubin GGT AST ALT Alkaline Phosphatase Lactate Dehydrogenase Total Protein Albumin Globulin Albumin/Globulin Ratio Prealbumin 17.0 L Triglycerides Peritoneal Albumin Medical - DS: A/P - Patient/Caregiver Discharge Instructions Activity: increase activity as tolerated Diet: Low Fat (No cigarettes or alcohol.) Additional Instructions: f/u with Dr. Asher as scheduled. If you need to return to the ED and it is determined that you need to be admitted, then you should be sent to [facility] under care of subspecialist for possible intervention of pseudocysts. - Follow up Plan Follow up with: Jenn Smith ARNP [Primary Care Provider] - Disposition: Home, Self-Care Prognosis: Fair Rehab Potential: Fair
[2018-07-04] MEDS: HYDROcodone/APAP 5/325MG TABLET PO PRN ×2 (15:43→20:20)
[2018-07-04] MEDS: SENNOSIDES/DOCUSATE SODIUM 1 TAB TABLET PO SCH (20:13)
[2018-07-04] MEDS: ONDANSETRON 4 MG/2 ML VIAL IV PRN (20:20)
[2018-07-05] MEDS: HYDROcodone/APAP 5/325MG TABLET PO PRN ×2 (00:43→08:39)
[2018-07-05] MEDS: 0.9 % SODIUM CHLORIDE 10 ML SYRINGE IV SCH ×3 (02:19→06:05)
[2018-07-05] MEDS: HYDROmorphone 2 MG/ML VIAL IV PRN ×3 (02:19→08:45)
[2018-07-05] MEDS: DOCUSATE SODIUM 100 MG CAPSULE PO SCH (08:39)
[2018-07-05] MEDS: LIPASE/PROTEASE/AMYLASE 1 CAP CAPSULE PO SCH (08:39)
[2018-07-05] MEDS: HEPARIN 5,000 UNIT/ML VIAL SQ SCH (08:43)
[2018-07-05] MEDS: CHLORHEXIDINE GLUCONATE 1 ML ORAL.SOL SWABMOUTH SCH (08:47)
== END 2018-07-05 11:10 | disposition home or self-care (01) | DRG 439 ==
LOC: ED 11:43 → MEDSUR 17:00
PROVIDERS: ADMIT Internal Medicine; ATTEND Internal Medicine